=== PATIENT | female | born 1960 | race American Indian/Alaskan Native ===

== ENCOUNTER 2016-06-08 20:18 | Inpatient (IN) | payer MEDICARE, OTHER ==
[2016-06-08] MEDS ORDERED: ATIVAN ONE (21:00)
[2016-06-08] MEDS ORDERED: KEPPRA 1,000 MG/NS 0.75% 100ML 100 ML IV ONE ×2 (21:06→21:10)
[2016-06-08] MEDS ORDERED: ATIVAN IV ONE (21:10)
--- NOTE | 2016-06-08 21:11 | Cat Scan Report ---
FINAL REPORT EXAM: CT HEAD/BRAIN WO CON HISTORY: nonverbal, ams COMPARISON: CT of the head May 24, 2016. MRI of the brain March 15, 2016. TECHNIQUE: Axial images obtained skull base through vertex. FINDINGS: No acute intracranial hemorrhage, midline shift or pathologic extra axial fluid collection. Stable focal areas of volume loss involving the bilateral frontal lobes compatible sequelae of prior traumatic injury. Stable mild prominence of the frontal horns due to ex vacuo dilatation. Remainder of montez-white differentiation preserved. Calvarium grossly intact. Mild mucosal thickening the paranasal sinuses. Tiny amount of fluid within the mastoid air cells. IMPRESSION: No grossly acute intracranial abnormality. Stable focal areas of volume loss involving the bilateral frontal lobes compatible sequelae of prior traumatic encephalomalacia. No gross change from prior study.
[2016-06-08 22:09] LABS: Urine Drugs of Abuse Note Disclamer
[2016-06-08 22:10] LABS: Basophils % (Auto) 0.2 % (0.0-1.8); Eosinophils % (Auto) 0.1 % (0.0-4.3); Hematocrit 37.4 % (30.3-42.9); Hemoglobin 12.1 gm/dl (10.1-14.3); Mean Corpuscular HGB Conc 32 % (30-34); Mean Corpuscular Hemoglobin 27 pg (28-32); Mean Corpuscular Volume 84 fl (79-97); Platelet Count 444 K/mm3 (140-440); Red Blood Count 4.45 M/mm3 (3.65-5.03); Red Cell Distribution Width 14.7 % (13.2-15.2); White Blood Count 10.2 K/mm3 (4.5-11.0)
--- NOTE | 2016-06-08 22:19 | Cat Scan Report ---
FINAL REPORT EXAM: CT FACIAL BONES WO CON HISTORY: fall, head injury COMPARISON: CT of the head from the same date. TECHNIQUE:: Axial images obtained through the facial bones. Additional sagittal and coronal reformatted images were obtained. FINDINGS:: There is a tiny pocket a gas along the left orbital floor concerning for subtle nondisplaced fracture. There is also a subtle nondisplaced fracture of the anterior left maxillary wall (series 4, image 27). Otherwise, orbital rims, zygomatic arches, ptyergoid plates, and mandible are intact. No depressed nasal bone fracture. No intraocular or retrobulbar hematoma. Optic nerves and extraocular musculature are symmetric in morphology. Tiny air-fluid level left maxillary sinus. Majority of the teeth are absent. Mild mucosal thickening ethmoid air cells and left maxillary sinus. Mastoid air cells are clear. Prominent soft tissue swelling over the left malar region. Focal hematoma. IMPRESSION:: Probable subtle nondisplaced fracture along the left orbital floor. There is also a subtle nondisplaced fracture through the anterior wall left maxillary sinus. No other acute facial fracture. Prominent soft tissue swelling hematoma along the left malar region.
[2016-06-08 22:25] LABS: INR 1.06 (0.87-1.13); Partial Thromboplastin Time 30.8 Sec. (24.2-36.6)
[2016-06-08 22:26] LABS: Bilirubin,Urine NEG (Negative); Blood,Urine MOD (Negative); Ketones,Urine 20 mg/dL (Negative); Leukocyte Esterase,Urine SM (Negative); Mucus,Urine 1+ /HPF; Nitrite,Urine NEG (Negative); Urobilinogen,Urine < 2.0 mg/dL (<2.0)
--- NOTE | 2016-06-08 22:33 | Emergency Department Report ---
ED Seizure HPI - General Chief Complaint: Altered Mental Status Stated Complaint: FALL Time Seen by Provider: 06/08/16 20:27 Source: EMS, old records reviewed Mode of arrival: Stretcher Limitations: Altered Mental Status - History of Present Illness Initial Comments: 55-year-old female with a past medical history seizures and hypertension presents to the hospital with altered mental status. Patient was incarcerated. She went to Court approximately 8:30 this a.m. but after Court completely stopped speaking. Patient was not speaking but was able to follow commands. About 7:30 patient had a fall at the longterm and was less responsive and not following commands and therefore was sent to the hospital for evaluation. Upon arrival patient is nonverbal but does follow commands. Gaze preference to the right. Previous medical record reviewed. Patient was admitted here May 24 until the for status epilepticus from the longterm with associated respiratory failure requiring intubation upon arrival - Related Data Home Medications Medication Instructions Recorded Confirmed Last Taken amLODIPine [Norvasc] 5 mg PO DAILY 06/08/16 06/08/16 Unknown Previous Rx's Medication Instructions Recorded Last Taken Type levETIRAcetam [Keppra TAB] 1,000 mg PO BID #60 tablet 05/27/16 Unknown Rx Allergies Allergy/AdvReac Type Severity Reaction Status Date / Time peanut Allergy Unknown Verified 06/08/16 20:38 ED Review of Systems ROS: Stated complaint: FALL Other details as noted in HPI Comment: Unobtainable due to pts medical conditions (nonverbal) ED Past Medical Hx - Past Medical History Hx Hypertension: Yes Hx Congestive Heart Failure: No Hx Diabetes: No Hx Seizures: Yes Hx Asthma: No Hx COPD: No Additional medical history: LISSETH - Surgical History Additional Surgical History: LISSETH - Social History Smoking Status: Unknown if ever smoked - Medications Home Medications: Home Medications Medication Instructions Recorded Confirmed Last Taken Type levETIRAcetam [Keppra TAB] 1,000 mg PO BID #60 tablet 05/27/16 06/08/16 Unknown Rx amLODIPine [Norvasc] 5 mg PO DAILY 06/08/16 06/08/16 Unknown History ED Physical Exam - General Limitations: Altered Mental Status - Other Other exam information: General: No limitations, patient is alert in no acute distress Head exam: 1 cm laceration at left superior lateral orbital rim. Ecchymosis to left cheek/maxillary area superficial 0.5 cm laceration. Eyes exam: Normal appearance, pupils equal reactive to light, extraocular movements intact ENT: Moist mucous membrane, normal oropharynx Neck exam: Normal inspection, full range of motion, no meningismus nontender Respiratory exam: Clear to auscultation bilateral, no wheezes, rales, crackles Cardiovascular: Normal rate and rhythm, normal heart sounds Abdomen: Soft, nondistended, and nontender, with normal bowel sounds, no rebound, or guarding Extremity: Full range of motion normal inspection no deformity Back: Normal Inspection, full range of motion, no tenderness Neurologic: Nonverbal, right gaze preference, 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, equal foot dorsiflexion, sensation grossly intact Psychiatric: normal affect, normal mood Skin: laceration to left brow area ED Course Vital Signs 06/08/16 06/08/16 06/08/16 20:52 21:00 21:10 Pulse Rate 93 H 100 H 97 H Respiratory 19 24 21 Rate Blood Pressure 183/99 183/99 O2 Sat by Pulse 100 100 Oximetry 06/08/16 06/08/16 06/08/16 21:20 21:30 22:36 Pulse Rate 84 76 Respiratory 18 15 19 Rate Blood Pressure 123/102 153/84 O2 Sat by Pulse 99 99 100 Oximetry - Reevaluation(s) Reevaluation #1: 06/08/16 22:[address] pt had a sz with increased shaking of head to right, right arm tremors, and decreased responsiveness. I obtained an EJ due to lack of adequate refill access. 2 mg of Ativan given an Oral 1 g initiated. At this time patient no longer has any tremors or signs of seizures - EJ/Peripheral Line Neck R Time Out Performed: Yes Indications: nurses unable to establis Skin Cleansed in Sterile Fashion: Yes Size: 20 Dressing Placed: Tegaderm, tape Patient Tolerated Procedure: well, no complications - Laceration /Wound Repair Left Face Wound Location: face Wound Length (cm): 1 Wound's Depth, Shape: linear Wound Explored: clean Irrigated w/ Saline (ccs): 50 Betadine Prep?: Yes Wound Repaired With: Dermabond Sterile Dressing Applied?: No ED Medical Decision Making - Lab Data Result diagrams: 06/08/16 20:27 06/08/16 20:27 Lab Results 06/08/16 06/08/16 06/08/16 Range/Units 20:27 20:27 20:27 WBC 10.2 (4.5-11.0) K/mm3 RBC 4.45 (3.65-5.03) M/mm3 Hgb 12.1 (10.1-14.3) gm/dl Hct 37.4 (30.3-42.9) % MCV 84 (79-97) fl MCH 27 L (28-32) pg MCHC 32 (30-34) % RDW 14.7 (13.2-15.2) % Plt Count 444 H (140-440) K/mm3 Lymph % (Auto) 13.9 (13.4-35.0) % [place] % (Auto) 7.7 H (0.0-7.3) % Eos % (Auto) 0.1 (0.0-4.3) % Baso % (Auto) 0.2 (0.0-1.8) % Lymph # 1.4 (1.2-5.4) K/mm3 [place] # 0.8 (0.0-0.8) K/mm3 Eos # 0.0 (0.0-0.4) K/mm3 Baso # 0.0 (0.0-0.1) K/mm3 Seg Neutrophils % 78.1 H (40.0-70.0) % Seg Neutrophils # 8.0 H (1.8-7.7) K/mm3 PT 13.7 (12.2-14.9) Sec. INR 1.06 (0.87-1.13) APTT 30.8 (24.2-36.6) Sec. Sodium 145 (137-145) mmol/L Potassium 3.8 (3.6-5.0) mmol/L Chloride 103.4 (98-107) mmol/L Carbon Dioxide 19 L (22-30) mmol/L Anion Gap 26 mmol/L BUN 10 (7-17) mg/dL Creatinine 0.7 (0.7-1.2) mg/dL Estimated GFR > 60 ml/min BUN/Creatinine Ratio 14.28 % Glucose 124 H (65-100) mg/dL Calcium 10.0 (8.4-10.2) mg/dL Magnesium 1.9 (1.7-2.3) mg/dL Total Bilirubin 0.4 (0.1-1.2) mg/dL AST 21 (5-40) units/L ALT 35 (7-56) units/L Alkaline Phosphatase 93 (35-129) units/L Ammonia (25-60) umol/L Total Protein 8.0 (6.3-8.2) g/dL Albumin 4.5 (3.9-5) g/dL Albumin/Globulin Ratio 1.3 % Urine Color (Yellow) Urine Turbidity (Clear) Urine pH (5.0-7.0) Ur Specific [place] (1.003-1.030) Urine Protein (Negative) mg/dL Urine Glucose (UA) (Negative) mg/dL Urine Ketones (Negative) mg/dL Urine Blood (Negative) Urine Nitrite (Negative) Urine Bilirubin (Negative) Urine Urobilinogen (<2.0) mg/dL Ur Leukocyte Esterase (Negative) Urine WBC (Auto) (0.0-6.0) /HPF Urine RBC (Auto) (0.0-6.0) /HPF U Epithel Cells (Auto) (0-13.0) /HPF Urine Mucus /HPF U Benzodiazepines Scrn Plasma/Serum Alcohol (0-0.07) gm% 06/08/16 06/08/16 06/08/16 Range/Units 20:29 21:05 Unknown WBC (4.5-11.0) K/mm3 RBC (3.65-5.03) M/mm3 Hgb (10.1-14.3) gm/dl Hct (30.3-42.9) % MCV (79-97) fl MCH (28-32) pg MCHC (30-34) % RDW (13.2-15.2) % Plt Count (140-440) K/mm3 Lymph % (Auto) (13.4-35.0) % [place] % (Auto) (0.0-7.3) % Eos % (Auto) (0.0-4.3) % Baso % (Auto) (0.0-1.8) % Lymph # (1.2-5.4) K/mm3 [place] # (0.0-0.8) K/mm3 Eos # (0.0-0.4) K/mm3 Baso # (0.0-0.1) K/mm3 Seg Neutrophils % (40.0-70.0) % Seg Neutrophils # (1.8-7.7) K/mm3 PT (12.2-14.9) Sec. INR (0.87-1.13) APTT (24.2-36.6) Sec. Sodium (137-145) mmol/L Potassium (3.6-5.0) mmol/L Chloride (98-107) mmol/L Carbon Dioxide (22-30) mmol/L Anion Gap mmol/L BUN (7-17) mg/dL Creatinine (0.7-1.2) mg/dL Estimated GFR ml/min BUN/Creatinine Ratio % Glucose (65-100) mg/dL Calcium (8.4-10.2) mg/dL Magnesium (1.7-2.3) mg/dL Total Bilirubin (0.1-1.2) mg/dL AST (5-40) units/L ALT (7-56) units/L Alkaline Phosphatase (35-129) units/L Ammonia 10.0 L (25-60) umol/L Total Protein (6.3-8.2) g/dL Albumin (3.9-5) g/dL Albumin/Globulin Ratio % Urine Color Yellow (Yellow) Urine Turbidity Clear (Clear) Urine pH 5.0 (5.0-7.0) Ur Specific [place] 1.020 (1.003-1.030) Urine Protein 30 mg/dl (Negative) mg/dL Urine Glucose (UA) Neg (Negative) mg/dL Urine Ketones 20 (Negative) mg/dL Urine Blood Mod (Negative) Urine Nitrite Neg (Negative) Urine Bilirubin Neg (Negative) Urine Urobilinogen < 2.0 (<2.0) mg/dL Ur Leukocyte Esterase Sm (Negative) Urine WBC (Auto) 7.0 H (0.0-6.0) /HPF Urine RBC (Auto) 2.0 (0.0-6.0) /HPF U Epithel Cells (Auto) 1.0 (0-13.0) /HPF Urine Mucus 1+ /HPF U Benzodiazepines Scrn Plasma/Serum Alcohol < 0.01 (0-0.07) gm% 06/08/16 Range/Units Unknown WBC (4.5-11.0) K/mm3 RBC (3.65-5.03) M/mm3 Hgb (10.1-14.3) gm/dl Hct (30.3-42.9) % MCV (79-97) fl MCH (28-32) pg MCHC (30-34) % RDW (13.2-15.2) % Plt Count (140-440) K/mm3 Lymph % (Auto) (13.4-35.0) % [place] % (Auto) (0.0-7.3) % Eos % (Auto) (0.0-4.3) % Baso % (Auto) (0.0-1.8) % Lymph # (1.2-5.4) K/mm3 [place] # (0.0-0.8) K/mm3 Eos # (0.0-0.4) K/mm3 Baso # (0.0-0.1) K/mm3 Seg Neutrophils % (40.0-70.0) % Seg Neutrophils # (1.8-7.7) K/mm3 PT (12.2-14.9) Sec. INR (0.87-1.13) APTT (24.2-36.6) Sec. Sodium (137-145) mmol/L Potassium (3.6-5.0) mmol/L Chloride (98-107) mmol/L Carbon Dioxide (22-30) mmol/L Anion Gap mmol/L BUN (7-17) mg/dL Creatinine (0.7-1.2) mg/dL Estimated GFR ml/min BUN/Creatinine Ratio % Glucose (65-100) mg/dL Calcium (8.4-10.2) mg/dL Magnesium (1.7-2.3) mg/dL Total Bilirubin (0.1-1.2) mg/dL AST (5-40) units/L ALT (7-56) units/L Alkaline Phosphatase (35-129) units/L Ammonia (25-60) umol/L Total Protein (6.3-8.2) g/dL Albumin (3.9-5) g/dL Albumin/Globulin Ratio % Urine Color (Yellow) Urine Turbidity (Clear) Urine pH (5.0-7.0) Ur Specific [place] (1.003-1.030) Urine Protein (Negative) mg/dL Urine Glucose (UA) (Negative) mg/dL Urine Ketones (Negative) mg/dL Urine Blood (Negative) Urine Nitrite (Negative) Urine Bilirubin (Negative) Urine Urobilinogen (<2.0) mg/dL Ur Leukocyte Esterase (Negative) Urine WBC (Auto) (0.0-6.0) /HPF Urine RBC (Auto) (0.0-6.0) /HPF U Epithel Cells (Auto) (0-13.0) /HPF Urine Mucus /HPF U Benzodiazepines Scrn Presumptive positive Plasma/Serum Alcohol (0-0.07) gm% - EKG Data -: EKG Interpreted by Me (sinus rate 98, minimal criteria for LVH) - EKG Data When compared to previous EKG there are: no significant change (compared to 03/14) - Radiology Data Radiology results: report reviewed (ct head: naf) CT facial bones: Probable subtle nondisplaced fracture along the left orbital floor. Also subtle nondisplaced fracture through the anterior wall of the left maxillary sinus. No other acute facial fracture. Soft tissue swelling/hematoma along the left malar region - Medical Decision Making ddx: ICH Patient appears in no apparent seizure activity but still not quite at baseline. Given this patient's history of status and continued altered mental status patient will be admitted to the hospital for further observation and treatment - Differential Diagnosis seizure, medication noncompliance, electrolyte abnormality, substance abuse Critical Care Time: No Critical care attestation.: If time is entered above; I have spent that time in minutes in the direct care of this critically ill patient, excluding procedure time. ED Disposition Clinical Impression: Seizure, Fracture of left orbital floor, Left maxillary fracture, Altered mental status Face lacerations Qualifiers: Encounter type: initial encounter Qualified Code(s): S01.81XA - Laceration without foreign body of other part of head, initial encounter Disposition: OP ADMITTED IP TO THIS HOSP Is pt being admited?: Yes Does the pt Need Aspirin: No Condition: Stable Time of Disposition: 22:57 (Dr Tellze/hosp)
[2016-06-08 22:38] LABS: Alanine Aminotransferase 35 units/L (7-56); Albumin 4.5 g/dL (3.9-5); Albumin/Globulin Ratio 1.3 %; Alkaline Phosphatase 93 units/L (35-129); BUN/Creatinine Ratio 14.28; Bilirubin,Total 0.4 mg/dL (0.1-1.2); Blood Urea Nitrogen 10 mg/dL (7-17); Carbon Dioxide 19 mmol/L (22-30); Chloride 103.4 mmol/L (98-107); Glucose 124 mg/dL (65-100); Magnesium 1.9 mg/dL (1.7-2.3); Potassium 3.8 mmol/L (3.6-5.0); Sodium 145 mmol/L (137-145)
[2016-06-08 22:54] LABS: Anion Gap 26 mmol/L
[2016-06-08] MEDS ORDERED: ATIVAN IV PRN (23:41)
--- NOTE | 2016-06-08 23:45 | History and Physical Report ---
History of Present Illness Date of examination: 06/08/16 History of present illness: 55-year-old woman history of hypertension and seizure was brought to the emergency room for altered mental status for the emergency room physician. She was noted to have seizure activity in the ER, she was given IV Ativan and is now postictal and sedated. Other review of system is unobtainable PAST SURGICAL HISTORY: Unknown SOCIAL HISTORY: Unknown FAMILY HISTORY: Unknown Medications and Allergies Allergies Allergy/AdvReac Type Severity Reaction Status Date / Time peanut Allergy Unknown Verified 06/08/16 20:38 Home Medications Medication Instructions Recorded Confirmed Last Taken Type levETIRAcetam [Keppra TAB] 1,000 mg PO BID #60 tablet 05/27/16 06/08/16 Unknown Rx amLODIPine [Norvasc] 5 mg PO DAILY 06/08/16 06/08/16 Unknown History Active Meds: Active Medications Lorazepam (Ativan) 2 mg IV Q4H PRN PRN Reason: Seizures Exam - Physical Exam Narrative exam: Gen. appearance: Patient lying in bed, no apparent distress HEENT: Normocephalic, atraumatic, pupils equally round and reactive to light, unable to do extraocular movement, and no sclericterus,. No JVD or thyromegaly or nodule,neck supple, no carotid bruit ,mucous membranes moist, unable to examine oral cavity Heart: S1, S2, regular rate and rhythm Lungs: Clear to auscultation bilaterally, breathing comfortable Abdomen: Positive bowel sounds, nontender, nondistended, no organomegaly Extremity: No edema, cyanosis, clubbing Skin: No rash, nodules, warm, dry Neuro: Sedated - Constitutional Vitals: Temp Pulse Resp BP Pulse Ox 76 19 153/84 100 06/08/16 21:30 06/08/16 22:36 06/08/16 21:30 06/08/16 22:36 Results - Labs CBC & Chem 7: 06/08/16 20:27 06/08/16 20:27 Labs: Abnormal lab results 06/08/16 06/08/16 06/08/16 Range/Units 20:27 20:27 21:05 MCH 27 L (28-32) pg Plt Count 444 H (140-440) K/mm3 [place] % (Auto) 7.7 H (0.0-7.3) % Seg Neutrophils % 78.1 H (40.0-70.0) % Seg Neutrophils # 8.0 H (1.8-7.7) K/mm3 Carbon Dioxide 19 L (22-30) mmol/L Glucose 124 H (65-100) mg/dL Ammonia 10.0 L (25-60) umol/L Urine WBC (Auto) (0.0-6.0) /HPF 06/08/16 Range/Units Unknown MCH (28-32) pg Plt Count (140-440) K/mm3 [place] % (Auto) (0.0-7.3) % Seg Neutrophils % (40.0-70.0) % Seg Neutrophils # (1.8-7.7) K/mm3 Carbon Dioxide (22-30) mmol/L Glucose (65-100) mg/dL Ammonia (25-60) umol/L Urine WBC (Auto) 7.0 H (0.0-6.0) /HPF - Imaging and Cardiology CT Scan - head: report reviewed Assessment and Plan CT face reviewed Seizure acute on chronic Nondisplaced fracture of the anterior maxillary sinus Probably fracture of orbital floor Hypertension Admit to medicine Start IV ativan as needed for seizure Consult orthopedic Obtain further history when the patient is awake Start DVT prophylaxis
[2016-06-09] MEDS ORDERED: ZOFRAN IV PRN (03:55)
[2016-06-09] MEDS ORDERED: TYLENOL PR PRN (03:55)
[2016-06-09] MEDS ORDERED: DULCOLAX PR PRN (03:55)
[2016-06-09] MEDS ORDERED: MILK OF MAGNESIA PO PRN (03:55)
[2016-06-09 09:53] LABS: Basophils % (Auto) 0.4 % (0.0-1.8); Eosinophils % (Auto) 0.4 % (0.0-4.3); Hematocrit 34.6 % (30.3-42.9); Hemoglobin 11.3 gm/dl (10.1-14.3); Mean Corpuscular HGB Conc 33 % (30-34); Mean Corpuscular Hemoglobin 28 pg (28-32); Mean Corpuscular Volume 84 fl (79-97); Platelet Count 400 K/mm3 (140-440); Red Blood Count 4.12 M/mm3 (3.65-5.03); Red Cell Distribution Width 14.9 % (13.2-15.2); White Blood Count 10.2 K/mm3 (4.5-11.0)
[2016-06-09 10:05] LABS: BUN/Creatinine Ratio 15.71; Blood Urea Nitrogen 11 mg/dL (7-17); Calcium 9.3 mg/dL (8.4-10.2); Carbon Dioxide 25 mmol/L (22-30); Chloride 102.3 mmol/L (98-107); Glucose 93 mg/dL (65-100); Potassium 3.7 mmol/L (3.6-5.0); Sodium 141 mmol/L (137-145)
[2016-06-09 10:10] LABS: Anion Gap 17 mmol/L
--- NOTE | 2016-06-09 10:45 | Event Note ---
Date: 06/09/16 Recommend ENT/maxillofacial surgery consult.
[2016-06-09] MEDS: LOVENOX SUB-Q SCH (11:31)
--- NOTE | 2016-06-09 13:03 | Progress Note ---
Assessment and Plan Disposition Plan: stable home pending ent follow up Total Time Spent with Patient (Minutes): 22 - Patient Problems (1) Altered mental status Current Visit: Yes Status: Resolved Plan to address problem: Secondary to postictal state has resolved now. Resume Keppra. (2) Face lacerations Current Visit: Yes Status: Acute Qualifiers: Encounter type: initial encounter Qualified Code(s): S01.81XA - Laceration without foreign body of other part of head, initial encounter Plan to address problem: 's laceration is a stable. No need for suture. Local wound care. (3) Fracture of left orbital floor Current Visit: Yes Status: Acute Plan to address problem: Fracture left open floor. Not sure at this particular time we'll count of treatment this may need. Patient appears to be stable for discharge. Awaiting ENT consult. (4) Left maxillary fracture Current Visit: Yes Status: Acute Plan to address problem: Left maxillary fracture with pain. Await ENT consult. Was pending auto consult today however the patient takes states ENT problem and we'll wait on ENT consult. (5) Seizure Current Visit: Yes Status: Acute Plan to address problem: Further seizure we'll continue Keppra 1000 mg twice a day. (6) Acute kidney injury Current Visit: No Status: Acute Plan to address problem: Soft. Resolved. (7) HTN (hypertension) Current Visit: Yes Status: Acute Plan to address problem: Resume amlodipine. History Interval history: Patient presents status post seizure altered mental status post ictal. Now no longer postictal states she's hungry. Follow-up or oh thought that orbital fracture is ENT problem. ENT consult pending. Hospitalist Physical - Constitutional Vitals: Temp Pulse Resp BP Pulse Ox 97.8 F 68 16 146/79 100 06/09/16 08:00 06/09/16 08:00 06/09/16 08:00 06/09/16 08:00 06/09/16 11:33 General appearance: Present: no acute distress - EENT Eyes: Present: PERRL, EOM intact ENT: hearing intact, clear oral mucosa, dentition normal, other (facial swelling over the left around zygomatic process.) - Neck Neck: Present: supple, normal ROM - Respiratory Respiratory effort: normal Respiratory: bilateral: CTA - Cardiovascular Rhythm: regular Heart Sounds: Present: S1 & S2 - Extremities Extremities: no ischemia, pulses intact, pulses symmetrical, No edema Peripheral Pulses: within normal limits - Abdominal General gastrointestinal: soft, non-tender, non-distended - Integumentary Integumentary: Present: clear, warm, dry - Psychiatric Psychiatric: appropriate mood/affect - Neurologic Neurologic: CNII-XII intact Results - Labs CBC & Chem 7: 06/09/16 09:05 06/09/16 09:05 Labs: Laboratory Last Values WBC 10.2 K/mm3 (4.5-11.0) 06/09/16 09:05 RBC 4.12 M/mm3 (3.65-5.03) 06/09/16 09:05 Hgb 11.3 gm/dl (10.1-14.3) 06/09/16 09:05 Hct 34.6 % (30.3-42.9) 06/09/16 09:05 MCV 84 fl (79-97) 06/09/16 09:05 MCH 28 pg (28-32) 06/09/16 09:05 MCHC 33 % (30-34) 06/09/16 09:05 RDW 14.9 % (13.2-15.2) 06/09/16 09:05 Plt Count 400 K/mm3 (140-440) 06/09/16 09:05 Lymph % (Auto) 17.3 % (13.4-35.0) 06/09/16 09:05 [place] % (Auto) 8.6 % (0.0-7.3) H 06/09/16 09:05 Eos % (Auto) 0.4 % (0.0-4.3) 06/09/16 09:05 Baso % (Auto) 0.4 % (0.0-1.8) 06/09/16 09:05 Lymph # 1.8 K/mm3 (1.2-5.4) 06/09/16 09:05 [place] # 0.9 K/mm3 (0.0-0.8) H 06/09/16 09:05 Eos # 0.0 K/mm3 (0.0-0.4) 06/09/16 09:05 Baso # 0.0 K/mm3 (0.0-0.1) 06/09/16 09:05 Seg Neutrophils % 73.3 % (40.0-70.0) H 06/09/16 09:05 Seg Neutrophils # 7.5 K/mm3 (1.8-7.7) 06/09/16 09:05 PT 13.7 Sec. (12.2-14.9) 06/08/16 20:27 INR 1.06 (0.87-1.13) 06/08/16 20:27 APTT 30.8 Sec. (24.2-36.6) 06/08/16 20:27 Sodium 141 mmol/L (137-145) 06/09/16 09:05 Potassium 3.7 mmol/L (3.6-5.0) 06/09/16 09:05 Chloride 102.3 mmol/L (98-107) 06/09/16 09:05 Carbon Dioxide 25 mmol/L (22-30) 06/09/16 09:05 Anion Gap 17 mmol/L 06/09/16 09:05 BUN 11 mg/dL (7-17) 06/09/16 09:05 Creatinine 0.7 mg/dL (0.7-1.2) 06/09/16 09:05 Estimated GFR > 60 ml/min 06/09/16 09:05 BUN/Creatinine Ratio 15.71 % 06/09/16 09:05 Glucose 93 mg/dL (65-100) 06/09/16 09:05 POC Glucose 86 (70-105) 06/09/16 11:25 Calcium 9.3 mg/dL (8.4-10.2) 06/09/16 09:05 Magnesium 1.9 mg/dL (1.7-2.3) 06/08/16 20:27 Total Bilirubin 0.4 mg/dL (0.1-1.2) 06/08/16 20:27 AST 21 units/L (5-40) 06/08/16 20:27 ALT 35 units/L (7-56) 06/08/16 20:27 Alkaline Phosphatase 93 units/L (35-129) 06/08/16 20:27 Ammonia 10.0 umol/L (25-60) L 06/08/16 21:05 Total Protein 8.0 g/dL (6.3-8.2) 06/08/16 20:27 Albumin 4.5 g/dL (3.9-5) 06/08/16 20:27 Albumin/Globulin Ratio 1.3 % 06/08/16 20:27 Urine Color Yellow (Yellow) 06/08/16 Unknown Urine Turbidity Clear (Clear) 06/08/16 Unknown Urine pH 5.0 (5.0-7.0) 06/08/16 Unknown Ur Specific [place] 1.020 (1.003-1.030) 06/08/16 Unknown Urine Protein 30 mg/dl mg/dL (Negative) 06/08/16 Unknown Urine Glucose (UA) Neg mg/dL (Negative) 06/08/16 Unknown Urine Ketones 20 mg/dL (Negative) 06/08/16 Unknown Urine Blood Mod (Negative) 06/08/16 Unknown Urine Nitrite Neg (Negative) 06/08/16 Unknown Urine Bilirubin Neg (Negative) 06/08/16 Unknown Urine Urobilinogen < 2.0 mg/dL (<2.0) 06/08/16 Unknown Ur Leukocyte Esterase Sm (Negative) 06/08/16 Unknown Urine WBC (Auto) 7.0 /HPF (0.0-6.0) H 06/08/16 Unknown Urine RBC (Auto) 2.0 /HPF (0.0-6.0) 06/08/16 Unknown U Epithel Cells (Auto) 1.0 /HPF (0-13.0) 06/08/16 Unknown Urine Mucus 1+ /HPF 06/08/16 Unknown Urine Opiates Screen Presumptive negative 06/08/16 Unknown Urine Methadone Screen Presumptive negative 06/08/16 Unknown Ur Barbiturates Screen Presumptive negative 06/08/16 Unknown Ur Phencyclidine Scrn Presumptive negative 06/08/16 Unknown Ur Amphetamines Screen Presumptive negative 06/08/16 Unknown U Benzodiazepines Scrn Presumptive positive 06/08/16 Unknown Urine Cocaine Screen Presumptive negative 06/08/16 Unknown U Marijuana (THC) Screen Presumptive negative 06/08/16 Unknown Drugs of Abuse Note Disclamer 06/08/16 Unknown Plasma/Serum Alcohol < 0.01 gm% (0-0.07) 06/08/16 20:29
[2016-06-09] MEDS: KEPPRA PO SCH (22:12)
[2016-06-10] MEDS ORDERED: NORVASC PO SCH (10:00)
--- NOTE | 2016-06-10 10:21 | Admit Criteria Form ---
Admission Criteria Documentation: SEIZURE Clinical Indications for Admission to Inpatient Care (Place 'X' for any and all applicable criteria): Admission is indicated for seizure and ANY ONE of the following(1)(2)(3)(4)(5): [X]I. Inpatient admission required rather than observation care (Also use Seizure: Observation Care Criteria as appropriate) because of ANY ONE of the following: [X]a) Altered mental status that is severe or persistent [ ]b) New focal neurologic deficit that is severe or persistent [ ]c) Metabolic disorder (eg, hypoglycemia, hyponatremia) that is severe or persistent [ ]d) Recurrent seizure [ ]e) Outpatient antiseizure regimen cannot be established (eg , patient cannot tolerate medication, initiation requires inpatient care) [ ]f) Need for ongoing intravenous infusion of antiseizure medication [ ]g) Cardiac arrhythmias of immediate concern [ ]h) Cerebral bleeding, hydrocephalus, or vasospasm monitoring (14) [ ]i) Increased intracranial pressure or cerebral edema monitoring (15) [ ]j) Other treatment or monitoring requiring inpatient admission [ ]II. Status epilepticus [A] or repetitive seizures not controlled with emergent treatment (6)(8) [ ]III. Brain disorder (eg, tumor, edema, and hydrocephalus) that requiring monitoring or intervention available only at inpatient level of care. [ ]IV. Brain insult (eg, severe trauma, stroke, drug toxicity, or withdrawal) that requires monitoring or intervention available only at inpatient level of care (10)(11) Extended stay beyond goal length of stay may be needed for (22) [ ]a) Complications of status epilepticus [ ]b) Refractory status epilepticus [ ]c) Etiology-specific therapy for conditions such as PSYCHIATRIC SOCIAL WORKER SUPERVISOR infection, head injury,eclampsia, severe metabolic abnormalities, and brain tumor [ ]d) Residual neurologic damage, [ ]e) Initiation of significant change to anticonvulsant treatment [ ]f) Older patients (65 years or older) [ ]g) Patient requiring intubation (eg, to protect airway) The original [facility] content created by [email or web address] has been revised. The portions of the content which have been revised are identified through the use of italic text or in bold, and [facility] [employer] has neither reviewed nor approved the modified material. All other unmodified content is copyright [facility] [employer]. Please see references footnoted in the original [facility] edition 2016 Admission Criteria Met: Yes
[2016-06-10] MEDS: LOVENOX SUB-Q SCH (11:08)
[2016-06-10] MEDS: KEPPRA PO SCH (11:09)
--- NOTE | 2016-06-10 15:52 | Discharge Summary ---
Providers - Providers Date of Admission: 06/08/16 23:42 Date of discharge: 06/10/16 Attending physician: KARYN LOPEZ 06/09/16 03:55 Consult to Physician [CONS] Routine Consulting Provider: SIGIFREDO PAIGE V Reason For Exam: fx of max sinus, orbit floor Notified:: church secretary pl call Primary care physician: ROOFING LABORER Hospitalization Condition: Good Pertinent studies: Head CT, facial CT. Hospital course: 55-year-old history of seizure admitted status post seizure postictal state and fall with a facial fracture. We'll go consult was obtained at that time he did not feel like they will comfortable enough to make a decision around zygomatic arch and eye socket therefore ENT consult. At day #2 ENT consult not been obtained. Patient fracture was nondisplaced. Tenderness however does not need to correction at this time. Can follow up on outpatient basis with ENT. Or patient can be discharged home today. We'll discharge home with seizure medications increasing Keppra 1000 twice a day. Disposition: DISCHARGED TO HOME OR SELFCARE - Discharge Diagnoses (1) Altered mental status Status: Resolved Comment: Secondary to postictal state has resolved. (2) Face lacerations Status: Acute Qualifiers: Encounter type: initial encounter Qualified Code(s): S01.81XA - Laceration without foreign body of other part of head, initial encounter Comment: Lacerations treat local wound care (3) Fracture of left orbital floor Status: Acute Comment: Facial floor flexure and maxillary fracture will follow -up ENT outpatient (4) Left maxillary fracture Status: Acute Comment: Follow-up ENT outpatient. (5) Seizure Status: Acute Comment: Patient tolerated Ativan when necessary and increase to Keppra 1000 mg twice a day. (6) Acute kidney injury Status: Acute Comment: Resolved (7) HTN (hypertension) Status: Acute Qualifiers: Hypertension type: essential hypertension Qualified Code(s): I10 - Essential (primary) hypertension Comment: Maintain optimal control. Continue medical management. Core Measure Documentation - Palliative Care Palliative Care/ Comfort Measures: Not Applicable - Core Measures Any of the following diagnoses?: none Exam - Constitutional Vitals: Temp Pulse Resp BP Pulse Ox 97.7 F 65 14 178/81 98 06/10/16 15:15 06/10/16 15:15 06/10/16 15:15 06/10/16 15:15 06/10/16 15:15 General appearance: Present: no acute distress - EENT ENT: hearing intact, clear oral mucosa, dentition normal, other (left-sided facial swelling erythema secondary to facial fracture.) - Neck Neck: Present: supple, normal ROM - Respiratory Respiratory effort: normal Respiratory: bilateral: CTA - Cardiovascular Rhythm: regular Heart Sounds: Present: S1 & S2 - Extremities Extremities: no ischemia, pulses intact, pulses symmetrical, No edema Peripheral Pulses: within normal limits - Abdominal General gastrointestinal: Present: soft, non-tender, non-distended - Integumentary Integumentary: Present: clear, warm, dry - Musculoskeletal Musculoskeletal: gait normal, strength equal bilaterally - Psychiatric Psychiatric: appropriate mood/affect, intact judgment & insight - Neurologic Neurologic: CNII-XII intact, moves all extremities Plan Activity: no driving until cleared by PCP Weight Bearing Status: Weight Bear as Tolerated Diet: regular Wound: open to air Special Instructions: no heavy lifting, other (follow-up with ear nose and throat.) Follow up with: PRIMARY CARE, [Primary Care Provider] - 7 Days YOLY CRAWFORD MD [Staff Physician] - 7 Days Prescriptions: amLODIPine [Norvasc] 5 mg PO QDAY #30 tablet levETIRAcetam [Keppra TAB] 1,000 mg PO BID #60 tablet
[2016-06-10 17:30] VITALS: BP 177/80
[2016-06-11] MEDS ORDERED: LOVENOX SUB-Q SCH (10:00)
== END 2016-06-10 17:31 | disposition home or self-care (01) | DRG 158 ==
LOC: ED 20:18 → EEVIPCON 20:18 → 3A 23:42
PROVIDERS: ADMIT Internal Medicine; ATTEND Internal Medicine
DX: S02.40DA Maxillary fracture, left side, initial encounter for closed fracture (principal); S02.32XA Fracture of orbital floor, left side, initial encounter for closed fracture; N17.9 Acute kidney failure, unspecified; I10 Essential (primary) hypertension; S01.81XA Laceration without foreign body of other part of head, initial encounter; W18.39XA Other fall on same level, initial encounter; R56.9 Unspecified convulsions; Z91.010 Allergy to peanuts; Y93.89 Activity, other specified; Y92.89 Other specified places as the place of occurrence of the external cause; Y99.8 Other external cause status
CPT/HCPCS: 36415; 70450; 70486; 80048; 80053; 80307; 80320; 81001; 82140; 82962; 83735; 85025; 85610; 85730; 93005; 93010; 96374; 96375; G0480; J1650; J1953; J2060

== ENCOUNTER 2016-08-28 13:11 | Observation (INO) | payer MEDICARE ==
[2016-08-28] MEDS ORDERED: KEPPRA 1,000 MG/NS 0.75% 100ML 1,000 MG/100 ML BAG IV ONE (13:39)
--- NOTE | 2016-08-28 13:53 | Emergency Department Report ---
ED Seizure HPI - General Chief Complaint: Seizure Stated Complaint: SEIZURE Time Seen by Provider: 08/28/16 13:40 Source: EMS Mode of arrival: Stretcher Limitations: Altered Mental Status - History of Present Illness Initial Comments: 56-year-old female presents to the emergency department via EMS for evaluation of seizure. History is obtained from EMS due to the patient's postictal state. EMS states that they were called out for a seizure. Patient was noted to have traumatic injuries to her head. Patient then had a second seizure witnessed by EMS en route to the emergency department. EMS describes generalized tonic-clonic activity. Patient was administered 2 mg of IV Ativan. EMS reports a history of seizures. They state the patient told them she has been taking her Keppra and her last seizure was over one year ago. Further history is unable to be obtained from the patient due to her postictal state. MD Complaint: seizure -: unknown Description of Episode: tonic-clonic movement, post-event confusion Witnessed:: Yes Trauma: Yes Seizure History: known seizure disorder, compliant with medication Place: home Possible Precipitating Event: other (unknown) Treatments Prior to Arrival: benzodiazepines - Related Data Home Medications Medication Instructions Recorded Confirmed Last Taken amLODIPine [Norvasc] 5 mg PO DAILY 06/08/16 06/08/16 Unknown Previous Rx's Medication Instructions Recorded Last Taken Type amLODIPine [Norvasc] 5 mg PO QDAY #30 tablet 06/10/16 Unknown Rx levETIRAcetam [Keppra TAB] 1,000 mg PO BID #60 tablet 06/10/16 Unknown Rx Allergies Allergy/AdvReac Type Severity Reaction Status Date / Time peanut Allergy Unknown Verified 06/08/16 20:38 ED Review of Systems ROS: Stated complaint: SEIZURE Other details as noted in HPI Comment: Unobtainable due to pts medical conditions ED Past Medical Hx - Past Medical History Previous Medical History?: Yes Hx Hypertension: Yes (Since age 36) Hx Congestive Heart Failure: No Hx Diabetes: No Hx Seizures: Yes (Since age 36) Hx Asthma: No Hx COPD: No Additional medical history: LISSETH - Surgical History Additional Surgical History: LISSETH - Social History Smoking Status: Unknown if ever smoked - Medications Home Medications: Home Medications Medication Instructions Recorded Confirmed Last Taken Type amLODIPine [Norvasc] 5 mg PO DAILY 06/08/16 06/08/16 Unknown History amLODIPine [Norvasc] 5 mg PO QDAY #30 tablet 06/10/16 Unknown Rx levETIRAcetam [Keppra TAB] 1,000 mg PO BID #60 tablet 06/10/16 Unknown Rx ED Physical Exam - General Limitations: Other (post-ictal state) General appearance: postictal - Head Head exam: Present: normocephalic, other (1.5 cm laceration lateral to the right eyebrow. 1 cm laceration located just inferior to the right lower lip. No active bleeding noted.) - Eye Eye exam: Present: PERRL, EOMI, other (right sided periorbital ecchymosis) - ENT ENT exam: Present: normal exam, normal orophraynx, mucous membranes moist - Neck Neck exam: Present: normal inspection, full ROM. Absent: tenderness - Respiratory Respiratory exam: Present: normal lung sounds bilaterally. Absent: respiratory distress - Cardiovascular Cardiovascular Exam: Present: normal rhythm, tachycardia, normal heart sounds - GI/Abdominal GI/Abdominal exam: Present: soft, normal bowel sounds. Absent: distended, tenderness - Extremities Exam Extremities exam: Present: normal inspection, full ROM. Absent: tenderness - Back Exam Back exam: Present: normal inspection, full ROM. Absent: tenderness - Neurological Exam Neurological exam: Present: altered - Skin Skin exam: Present: warm, dry ED Course Vital Signs 08/28/16 13:35 Temperature 98.3 F Pulse Rate 112 H Respiratory 12 Rate Blood Pressure 102/60 O2 Sat by Pulse 97 Oximetry - Laceration /Wound Repair Right Face Wound Location: face (inferior and lateral to right eyebrow) Wound Length (cm): 2 Wound's Depth, Shape: superficial Wound Explored: clean Wound Repaired With: Dermabond Right Lower Jaw Wound Location: face (inferior to right lower lip) Wound Length (cm): 1 Wound's Depth, Shape: superficial Wound Explored: clean Wound Repaired With: Dermabond ED Medical Decision Making - Lab Data Result diagrams: 08/28/16 13:47 - Radiology Data Radiology results: report reviewed, image reviewed CT of the head shows bilateral frontal lobe encephalomalacia, unchanged from previous. CT of the cervical spine shows an old teardrop fracture at C6. There is no acute traumatic injury. - Medical Decision Making It is unsure if the patient had a seizure and fell hitting her head or if the patient fell, hitting her head and subsequently having a seizure. Obtaining labs and CT of the head and cervical spine. Giving IV Keppra. Will reassess. Patient remains minimally responsive after prolonged observation in the emergency department. Her imaging studies are negative for acute findings. Patient will be admitted by the hospitalist for further observation. - Differential Diagnosis seizure, traumatic head injury, electrolyte abnormality, occult infection Critical care attestation.: If time is entered above; I have spent that time in minutes in the direct care of this critically ill patient, excluding procedure time. ED Disposition Clinical Impression: Seizure disorder Closed head injury Qualifiers: Encounter type: initial encounter Qualified Code(s): S09.90XA - Unspecified injury of head, initial encounter Facial laceration Qualifiers: Encounter type: initial encounter Qualified Code(s): S01.81XA - Laceration without foreign body of other part of head, initial encounter Disposition: OP ADMITTED IP TO THIS HOSP Is pt being admited?: Yes Condition: Stable Referrals: PRIMARY CARE, [Primary Care Provider] - 3-5 Days Time of Disposition: 15:44
[2016-08-28 14:46] LABS: Sodium TNR mmol/L (137-145)
[2016-08-28 14:47] LABS: Anion Gap TNR mmol/L; BUN/Creatinine Ratio TNR; Blood Urea Nitrogen TNR mg/dL (7-17); Calcium TNR mg/dL (8.4-10.2); Carbon Dioxide TNR mmol/L (22-30); Chloride TNR mmol/L (98-107); Glucose TNR mg/dL (65-100); Potassium TNR mmol/L (3.6-5.0)
--- NOTE | 2016-08-28 15:09 | Cat Scan Report ---
Cranial CT without contrast. History: Seizure, head trauma. Findings: Comparison is made to the previous study on June 08, 2016. Encephalomalacia in the frontal lobes bilaterally is unchanged. There is no evidence of acute infarct or hemorrhage. No extra-axial collections or masses are seen. The ventricles are normal. The posterior fossa is unremarkable. The calvarium is intact. Impression: No acute findings or interval changes since 2016. Encephalomalacia in the frontal lobes is stable.
[2016-08-28 15:17] LABS: Bacteria,Urine 1+ /HPF (Negative); Bilirubin,Urine NEG (Negative); Blood,Urine MOD (Negative); Granular Casts,Urine 7 /LPF; Ketones,Urine NEG (Negative); Leukocyte Esterase,Urine NEG (Negative); Mucus,Urine FEW /HPF; Nitrite,Urine NEG (Negative); Urobilinogen,Urine < 2.0 mg/dL (<2.0)
--- NOTE | 2016-08-28 15:19 | Cat Scan Report ---
CT of the cervical spine. History: Seizure, fall with neck pain. Findings: Comparison is made to a previous study performed on December 09, 2014. Findings: There is severe narrowing of the disc space at C56 and C6-7. No fracture of the anterior inferior aspect of the C6 vertebral body is again noted. There is no evidence of acute fracture or subluxation. Anterior and posterior ossified center noted at these levels. Mild facet joint DJD is noted in the lower cervical spine. The odontoid is intact. Impression: No acute findings. An old teardrop fracture of the anterior inferior aspect of C6 vertebral body is noted. Multilevel spondylosis and facet joint arthropathy are described.
--- NOTE | 2016-08-28 15:56 | Admit Criteria Form ---
Admission Criteria Documentation: SEIZURE Clinical Indications for Admission to Inpatient Care (Place 'X' for any and all applicable criteria): Admission is indicated for seizure and ANY ONE of the following(1)(2)(3)(4)(5): [X]I. Inpatient admission required rather than observation care (Also use Seizure: Observation Care Criteria as appropriate) because of ANY ONE of the following: [X]a) Altered mental status that is severe or persistent [ ]b) New focal neurologic deficit that is severe or persistent [ ]c) Metabolic disorder (eg, hypoglycemia, hyponatremia) that is severe or persistent [X]d) Recurrent seizure [ ]e) Outpatient antiseizure regimen cannot be established (eg , patient cannot tolerate medication, initiation requires inpatient care) [ ]f) Need for ongoing intravenous infusion of antiseizure medication [ ]g) Cardiac arrhythmias of immediate concern [ ]h) Cerebral bleeding, hydrocephalus, or vasospasm monitoring (14) [ ]i) Increased intracranial pressure or cerebral edema monitoring (15) [ ]j) Other treatment or monitoring requiring inpatient admission [ ]II. Status epilepticus [A] or repetitive seizures not controlled with emergent treatment (6)(8) [ ]III. Brain disorder (eg, tumor, edema, and hydrocephalus) that requiring monitoring or intervention available only at inpatient level of care. [ ]IV. Brain insult (eg, severe trauma, stroke, drug toxicity, or withdrawal) that requires monitoring or intervention available only at inpatient level of care (10)(11) Extended stay beyond goal length of stay may be needed for (22) [ ]a) Complications of status epilepticus [ ]b) Refractory status epilepticus [ ]c) Etiology-specific therapy for conditions such as OUTBOUND SALES ADVISOR infection, head injury,eclampsia, severe metabolic abnormalities, and brain tumor [ ]d) Residual neurologic damage, [ ]e) Initiation of significant change to anticonvulsant treatment [ ]f) Older patients (65 years or older) [ ]g) Patient requiring intubation (eg, to protect airway) The original [facility] [employer] content created by [facility] [employer] has been revised. The portions of the content which have been revised are identified through the use of italic text or in bold, and [facility] [employer] has neither reviewed nor approved the modified material. All other unmodified content is copyright [facility] [employer]. Please see references footnoted in the original [facility] edition 2016 Admission Criteria Met: Yes
[2016-08-28] MEDS ORDERED: ZOFRAN IV PRN (16:47)
[2016-08-28] MEDS ORDERED: MILK OF MAGNESIA PO PRN (16:47)
[2016-08-28] MEDS ORDERED: MORPHINE IV PRN (16:47)
[2016-08-28] MEDS ORDERED: TYLENOL PO PRN (16:47)
[2016-08-28] MEDS ORDERED: DULCOLAX PR PRN (16:47)
[2016-08-28] MEDS ORDERED: ATIVAN IV PRN (16:55)
[2016-08-28] MEDS ORDERED: KEPPRA 1,000 MG in D5W 100 ML IV SCH (17:00)
[2016-08-28] MEDS ORDERED: D5/0.45NS 1,000 ML IV SCH (17:00)
--- NOTE | 2016-08-28 17:03 | History and Physical Report ---
History of Present Illness Date of examination: 08/28/16 Chief complaint: seizure and post ictal state History of present illness: Mrs. Torres is a 56-year-old -[place] female with history of seizure disorder the past 20 years apparently had a seizure while coming out of bathroom , and EMS was called, and she had the generalized tonic-clonic seizure while on the way to the emergency room. Presently she is in a postictal state. Unable to get any history from the patient. History is obtained from the family members who are in the room This appears to be some medication noncompliance as the patient apparently has some forgetfulness she gets a seizure at least once every 2 months. She started seeing a new neurologist Dr. Nebwerry recently and her antiseizure medication was changed from Dilantin to Keppra. She also had EEG results of which are not known to the family. The seizure disorder is preceded by a history of closed head injury in 1997 since then she has been having seizures She has right periorbital hematoma and abrasion on the chin and laceration over the right upper eye lid No further history is possible at this time Past History Past Medical History: hypertension, seizures, other (anxiety disorder) Past Surgical History: No surgical history Social history: no significant social history Family history: diabetes, hypertension Medications and Allergies Allergies Allergy/AdvReac Type Severity Reaction Status Date / Time peanut Allergy Unknown Verified 06/08/16 20:38 Home Medications Medication Instructions Recorded Confirmed Last Taken Type amLODIPine [Norvasc] 5 mg PO DAILY 06/08/16 06/08/16 Unknown History amLODIPine [Norvasc] 5 mg PO QDAY #30 tablet 06/10/16 Unknown Rx levETIRAcetam [Keppra TAB] 1,000 mg PO BID #60 tablet 06/10/16 Unknown Rx Active Meds: Active Medications Acetaminophen (Tylenol) 650 mg PO Q4H PRN PRN Reason: Pain MILD(1-3)/Fever >100.5/BISWAS Bisacodyl (Dulcolax) 10 mg MN QDAY PRN PRN Reason: Constipation unrelieved by MOM Heparin Sodium (Porcine) (Heparin) 5,000 unit SUB-Q Q8H BREANN Dextrose/Sodium Chloride (D5/0.45ns) 1,000 mls @ 75 mls/hr IV DIRECT BREANN Levetiracetam 1,000 mg/ (Dextrose) 110 mls @ 400 mls/hr IV Q12H BREANN Lorazepam (Ativan) 1 mg IV Q4H PRN PRN Reason: Anxiety Magnesium Hydroxide (Milk Of Magnesia) 30 ml PO Q4H PRN PRN Reason: Constipation Morphine Sulfate (Morphine) 2 mg IV Q4H PRN PRN Reason: Pain , Severe (7-10) Ondansetron HCl (Zofran) 4 mg IV Q8H PRN PRN Reason: N/V unrelieved by Reglan Review of Systems All systems: negative (as stated above in the history of present illness otherwise unobtainable at this time) Exam - Constitutional Vitals: Temp Pulse Resp BP Pulse Ox 98.3 F 112 H 12 102/60 97 08/28/16 13:35 08/28/16 13:35 08/28/16 13:35 08/28/16 13:35 08/28/16 13:35 General appearance: Present: no acute distress, other (confused, lethargic, not answering any questions) - EENT Eyes: Present: EOM intact (right periorbital hematoma with laceration over the right eyebrow) ENT: hearing intact, clear oral mucosa, other (abrasion over the right chin and upper lip) - Neck Neck: Present: supple. Absent: masses or JVD - Respiratory Respiratory effort: normal Respiratory: bilateral: CTA - Cardiovascular Rhythm: regular Heart Sounds: Present: S1 & S2 - Extremities Extremities: No edema - Abdominal General gastrointestinal: Present: soft, non-tender. Absent: hepatomegaly, splenomegaly - Rectal Rectal Exam: deferred - Psychiatric Psychiatric: other (lethargic confused) - Neurologic Neurologic: no focal deficits, moves all extremities Results - Labs CBC & Chem 7: 08/28/16 13:47 Assessment and Plan - Patient Problems (1) Seizure disorder Current Visit: Yes Status: Acute Plan to address problem: CT of the head shows no acute findings except encephalomalacia in the frontal lobes DT of the C-spine shows spondylolisthesis in no acute findings We'll admit the patient to observation status Start the patient on intravenous Keppra Keep nothing by mouth No need for any EEG as apparently she had one recently start on diet once she is more oriented and alert (2) HTN (hypertension) Current Visit: No Status: Acute Qualifiers: Hypertension type: essential hypertension Qualified Code(s): I10 - Essential (primary) hypertension Plan to address problem: Preferred this time is in the normal range We will hold amlodipine as she is nothing by mouth watch her blood pressure closely
[2016-08-28] MEDS ORDERED: APRESOLINE IV PRN (17:17)
[2016-08-28 17:46] LABS: Hematocrit 34.1 % (30.3-42.9); Hemoglobin 10.9 gm/dl (10.1-14.3); Mean Corpuscular HGB Conc 32 % (30-34); Mean Corpuscular Hemoglobin 27 pg (28-32); Mean Corpuscular Volume 84 fl (79-97); Platelet Count 330 K/mm3 (140-440); Red Blood Count 4.08 M/mm3 (3.65-5.03); Red Cell Distribution Width 14.3 % (13.2-15.2)
[2016-08-28 17:50] LABS: White Blood Count 26.9 K/mm3 (4.5-11.0)
[2016-08-28 18:02] LABS: Blood Urea Nitrogen 12 mg/dL (7-17); Calcium 8.8 mg/dL (8.4-10.2); Carbon Dioxide 21 mmol/L (22-30); Glucose 101 mg/dL (65-100)
[2016-08-28 18:03] LABS: Anion Gap 17 mmol/L; Chloride 102.6 mmol/L (98-107); Sodium 137 mmol/L (137-145)
[2016-08-28] MEDS: KEPPRA 1,000 MG/NS 0.75% 100ML 1,000 MG/100 ML BAG IV SCH (20:29)
[2016-08-28] MEDS: HEPARIN SUB-Q SCH (21:04)
[2016-08-28 21:12] LABS: Basophils % (Manual) 0 % (0.0-1.8); Blastocytes % (Manual) 0 %; Eosinophils % (Manual) 0 % (0.0-4.3); Total Cells Counted Percent 3.5
[2016-08-28 21:13] LABS: Anisocytosis 1+; Diff Status Complete; Large Platelets 1+; Platelet Estimate Consistent w Auto; Poikilocytosis 1+
[2016-08-29 00:27] VITALS: BP 133/63
[2016-08-29] MEDS: HEPARIN SUB-Q SCH (07:18)
[2016-08-29 08:29] LABS: Basophils % (Auto) 0.2 % (0.0-1.8); Eosinophils % (Auto) 0.1 % (0.0-4.3); Hematocrit 34.5 % (30.3-42.9); Mean Corpuscular HGB Conc 32 % (30-34); Mean Corpuscular Hemoglobin 27 pg (28-32); Mean Corpuscular Volume 83 fl (79-97); Platelet Count 310 K/mm3 (140-440); Red Blood Count 4.15 M/mm3 (3.65-5.03); Red Cell Distribution Width 14.3 % (13.2-15.2); White Blood Count 17.2 K/mm3 (4.5-11.0)
[2016-08-29 08:44] LABS: Anion Gap 19 mmol/L; BUN/Creatinine Ratio 11.25; Blood Urea Nitrogen 9 mg/dL (7-17); Calcium 9.1 mg/dL (8.4-10.2); Carbon Dioxide 21 mmol/L (22-30); Chloride 104.4 mmol/L (98-107); Glucose 116 mg/dL (65-100); Potassium 4.3 mmol/L (3.6-5.0); Sodium 140 mmol/L (137-145)
--- NOTE | 2016-08-29 08:54 | Discharge Summary ---
Providers - Providers Date of Admission: 08/28/16 15:44 Date of discharge: 08/29/16 Attending physician: MONSTER BELL Primary care physician: ARMANDO GARY MD Hospitalization Condition: Stable Hospital course: Discharge Diagnosis: (1) Seizure disorder Current Visit: Yes Status: Acute Plan to address problem: CT of the head shows no acute findings except encephalomalacia in the frontal lobes DT of the C-spine shows spondylolisthesis in no acute findings We'll admit the patient to observation status Start the patient on intravenous Keppra Keep nothing by mouth No need for any EEG as apparently she had one recently start on diet once she is more oriented and alert (2) HTN (hypertension) Current Visit: No Status: Acute Qualifiers: Hypertension type: essential hypertension Qualified Code(s): I10 - Essential (primary) hypertension Plan to address problem: Preferred this time is in the normal range We will hold amlodipine as she is nothing by mouth watch her blood pressure closely Disposition: LEFT AGAINST MEDICAL ADVICE Time spent for discharge: 32 minutes Core Measure Documentation - Palliative Care Palliative Care/ Comfort Measures: Not Applicable - Core Measures Any of the following diagnoses?: none Exam - Constitutional Vitals: Temp Pulse Resp BP Pulse Ox 98.4 F 70 18 133/63 100 08/29/16 00:25 08/29/16 00:25 08/29/16 00:25 08/29/16 00:25 08/29/16 00:25 General appearance: Present: no acute distress, well-nourished - EENT Eyes: Present: PERRL ENT: hearing intact, clear oral mucosa - Neck Neck: Present: supple, normal ROM - Respiratory Respiratory effort: normal Respiratory: bilateral: CTA - Cardiovascular Heart Sounds: Present: S1 & S2. Absent: rub, click - Extremities Extremities: pulses symmetrical, No edema Peripheral Pulses: within normal limits - Abdominal General gastrointestinal: Present: soft, non-tender, non-distended, normal bowel sounds Female genitourinary: Present: normal - Integumentary Integumentary: Present: clear, warm, dry - Musculoskeletal Musculoskeletal: gait normal, strength equal bilaterally - Psychiatric Psychiatric: appropriate mood/affect, intact judgment & insight - Neurologic Neurologic: CNII-XII intact, moves all extremities Plan Activity: fall precautions Weight Bearing Status: Non-Weight Bearing Diet: low fat, low salt Follow up with: PRIMARY CARE, [Primary Care Provider] - 3-5 Days Prescriptions: amLODIPine [Norvasc] 5 mg PO QDAY #30 tablet levETIRAcetam [Keppra TAB] 1,000 mg PO BID #60 tablet
[2016-08-29] MEDS: KEPPRA 1,000 MG/NS 0.75% 100ML 1,000 MG/100 ML BAG IV SCH (09:11)
[2016-08-29] MEDS: KEPPRA 1,000 MG in D5W 100 ML IV SCH ×2 (09:28→09:30)
== END 2016-08-29 10:20 | disposition left against medical advice (07) ==
LOC: ED 13:11 → 3A 15:44
PROVIDERS: ADMIT Internal Medicine; ATTEND Internal Medicine
DX: G40.909 Epilepsy, unspecified, not intractable, without status epilepticus (principal); S01.81XA Laceration without foreign body of other part of head, initial encounter; S09.90XA Unspecified injury of head, initial encounter; I10 Essential (primary) hypertension; X58.XXXA Exposure to other specified factors, initial encounter; Y93.89 Activity, other specified; Y92.89 Other specified places as the place of occurrence of the external cause; Y99.8 Other external cause status
CPT/HCPCS: 12013; 36415; 70450; 72125; 80048; 81001; 83735; 85007; 85025; 94760; 96361; 96365; 96375; 99285; G0378; J1644; J1953

== ENCOUNTER 2016-11-06 19:50 | Emergency (ER) | payer MEDICARE ==
[2016-11-06] MEDS ORDERED: KEPPRA 1,000 MG/NS 0.75% 100ML 1,000 MG/100 ML BAG IV ONE (20:33)
--- NOTE | 2016-11-06 20:42 | Emergency Department Report ---
HPI - General Chief Complaint: Seizure Time Seen by Provider: 11/06/16 20:32 - HPI HPI: Room 9 The patient is a 56-year-old female presenting with a chief complaint seizure. Patient reportedly has a history of seizures and takes Keppra. EMS reports patient was found on the floor by family having a seizure. Upon EMS arrival the patient was postictal. Patient had another seizure en route to the hospital and was administered Ativan 2 mg IV. Patient is currently postictal at this time and only opens her eyes to voice. Patient does not follow commands currently. Location: Central nervous system Duration: [see above] Quality: Generalized tonic-clonic Severity: Moderate Modifying factors: [see above] Context: [see above] Mode of transportation: [not driving] ED Past Medical Hx - Past Medical History Hx Hypertension: Yes (Since age 36) Hx Seizures: Yes Additional medical history: LISSETH - Surgical History Additional Surgical History: LISSETH - Family History Family history: no significant - Social History Smoking Status: Never Smoker - Medications Home Medications: Home Medications Medication Instructions Recorded Confirmed Last Taken Type amLODIPine [Norvasc] 5 mg PO QDAY #30 tablet 08/29/16 Unknown Rx Ambien 5 mg PO QHS PRN 11/06/16 11/06/16 Unknown History Mag-Ox 400 mg PO DAILY 11/06/16 11/06/16 Unknown History SUMAtriptan Succinate 50 mg PO BID PRN 11/06/16 11/06/16 Unknown History levETIRAcetam [Keppra TAB] 500 mg PO BID PRN 11/06/16 11/06/16 Unknown History traZODone 50 mg pe PO QHS PRN 11/06/16 11/06/16 Unknown History ED Review of Systems ROS: Stated complaint: SEIZURES Other details as noted in HPI Comment: Unobtainable due to pts medical conditions Physical Exam - Physical Exam Vital Signs: Vital Signs 11/06/16 11/06/16 20:01 20:07 Temperature 97.6 F Pulse Rate 97 H Respiratory 18 18 Rate Blood Pressure 134/82 Blood Pressure 134/82 [Left] O2 Sat by Pulse 97 97 Oximetry Physical Exam: GENERAL: The patient is well-developed well-nourished female lying on stretcher postictal. Patient opens eyes to verbal stimuli but does not speak or follow commands HEENT: Normocephalic. Atraumatic. Pupils 3-2 mm bilaterally. Patient has moist mucous membranes. NECK: Supple. Trachea midline CHEST/LUNGS: Clear to auscultation. There is no respiratory distress noted. HEART/CARDIOVASCULAR: Regular. There is no tachycardia. There is no gallop rub or murmur. ABDOMEN: Abdomen is soft, nontender. Patient has normal bowel sounds. There is no abdominal distention. SKIN: There is no rash. There is no edema. There is no diaphoresis. NEURO: The patient is postictal. Patient opens eyes to verbal stimuli but does not speak or follow commands MUSCULOSKELETAL: There is no evidence of acute injury. ED Course Vital Signs 11/06/16 11/06/16 20:01 20:07 Temperature 97.6 F Pulse Rate 97 H Respiratory 18 18 Rate Blood Pressure 134/82 Blood Pressure 134/82 [Left] O2 Sat by Pulse 97 97 Oximetry - Reevaluation(s) Reevaluation #1: 11/06/16 22:05 Patient awake and responds to questions by shaking or nodding her head. Patient denies any complaints currently. Patient acknowledges she has been compliant with her seizure medication Reevaluation #2: 11/06/16 22:31 Patient now alert and answering questions appropriately. Cranial nerves II through XII grossly intact, no drift. Outpatient Admitting Clerk 5+/5 bilaterally. Moves all extremities well. Patient without complaints ED Medical Decision Making - Lab Data Result diagrams: 11/06/16 20:57 11/06/16 20:57 Laboratory Tests 11/06/16 11/06/16 20:57 20:57 WBC 13.3 H RBC 4.74 Hgb 12.4 Hct 38.2 MCV 81 MCH 26 L MCHC 33 RDW 15.4 H Plt Count 395 Lymph % (Auto) 9.1 L [place] % (Auto) 5.7 Eos % (Auto) 0.1 Baso % (Auto) 0.2 Lymph # 1.2 [place]ta # 0.8 Eos # 0.0 Baso # 0.0 Seg Neutrophils % 84.9 H Seg Neutrophils # 11.3 H Sodium 142 Potassium 4.0 Chloride 101.8 Carbon Dioxide 23 Anion Gap 21 BUN 14 Creatinine 1.0 Estimated GFR > 60 BUN/Creatinine Ratio 14.00 Glucose 105 H Calcium 9.9 Magnesium 2.20 - Differential Diagnosis epilepsy, postictal state, status epilepticus Critical care attestation.: If time is entered above; I have spent that time in minutes in the direct care of this critically ill patient, excluding procedure time. ED Disposition Clinical Impression: Seizure Disposition: [id number] TO HOME OR SELFCARE Is pt being admited?: No Does the pt Need Aspirin: No Condition: Stable Instructions: Epilepsy (ED) Additional Instructions: Return to the emergency department immediately should you develop worsening symptoms, fever, inability to tolerate food or liquid or any other concerns. Referrals: PRIMARY CARE, [Primary Care Provider] - 3-5 Days Time of Disposition: 22:32
[2016-11-06 21:23] LABS: Basophils % (Auto) 0.2 % (0.0-1.8); Eosinophils % (Auto) 0.1 % (0.0-4.3); Hematocrit 38.2 % (30.3-42.9); Hemoglobin 12.4 gm/dl (10.1-14.3); Mean Corpuscular HGB Conc 33 % (30-34); Mean Corpuscular Hemoglobin 26 pg (28-32); Mean Corpuscular Volume 81 fl (79-97); Platelet Count 395 K/mm3 (140-440); Red Blood Count 4.74 M/mm3 (3.65-5.03); Red Cell Distribution Width 15.4 % (13.2-15.2); White Blood Count 13.3 K/mm3 (4.5-11.0)
[2016-11-06 21:31] LABS: Anion Gap 21 mmol/L; Blood Urea Nitrogen 14 mg/dL (7-17); Calcium 9.9 mg/dL (8.4-10.2); Carbon Dioxide 23 mmol/L (22-30); Chloride 101.8 mmol/L (98-107); Glucose 105 mg/dL (65-100); Sodium 142 mmol/L (137-145)
[2016-11-06 23:04] VITALS: BP 116/80
== END 2016-11-06 23:22 | disposition home or self-care (01) ==
LOC: ED 19:50
DX: R56.9 Unspecified convulsions (principal)
CPT/HCPCS: 36415; 80048; 82962; 83735; 85025; 96374; 99284; J1953

== ENCOUNTER 2016-12-11 23:13 | Inpatient (IN) | payer MEDICARE ==
[2016-12-12] MEDS ORDERED: KEPPRA 1,000 MG/NS 0.75% 100ML 1,000 MG/100 ML BAG IV ONE (01:13)
--- NOTE | 2016-12-12 01:28 | Emergency Department Report ---
HPI - General Chief Complaint: Seizure Time Seen by Provider: 12/12/16 01:12 - HPI HPI: Room 22 The patient is a 56-year-old female presenting with a chief complaint of seizure. Per EMS the patient had a seizure and was postictal upon arrival. Patient has a history of seizures and takes Keppra. Patient is still postictal currently when asked how she is feeling she is repetitive and states that she has seizures that she feels "all right." Location: [facility] Duration: Unknown Quality: [see above] Severity: Unknown Modifying factors: [see above] Context: [see above] Mode of transportation: EMS ED Past Medical Hx - Past Medical History Previous Medical History?: Yes Hx Hypertension: Yes (Since age 36) Hx Seizures: Yes Additional medical history: LISSETH - Surgical History Past Surgical History?: Yes Additional Surgical History: LISSETH - Family History Family history: no significant - Social History Smoking Status: Unknown if ever smoked - Medications Home Medications: Home Medications Medication Instructions Recorded Confirmed Last Taken Type amLODIPine [Norvasc] 5 mg PO QDAY #30 tablet 08/29/16 Unknown Rx Ambien 5 mg PO QHS PRN 11/06/16 11/06/16 Unknown History Mag-Ox 400 mg PO DAILY 11/06/16 11/06/16 Unknown History SUMAtriptan Succinate 50 mg PO BID PRN 11/06/16 11/06/16 Unknown History levETIRAcetam [Keppra TAB] 500 mg PO BID PRN 11/06/16 11/06/16 Unknown History traZODone 50 mg pe PO QHS PRN 11/06/16 11/06/16 Unknown History ED Review of Systems ROS: Stated complaint: SEIZURE Other details as noted in HPI Comment: Unobtainable due to pts medical conditions Physical Exam - Physical Exam Vital Signs: Vital Signs 12/11/16 12/11/16 12/11/16 23:07 23:15 23:17 Temperature 97.8 F Pulse Rate 100 H 101 H Respiratory 25 H 20 Rate Blood Pressure 155/80 155/80 O2 Sat by Pulse 94 98 Oximetry Physical Exam: GENERAL: The patient is well-developed well-nourished female. [] HEENT: Normocephalic. Atraumatic. Extraocular motions are intact. Patient has moist mucous membranes. NECK: Supple. Trachea midline CHEST/LUNGS: Clear to auscultation. There is no respiratory distress noted. HEART/CARDIOVASCULAR: Regular. There is no tachycardia. There is no gallop rub or murmur. ABDOMEN: Abdomen is soft, nontender. Patient has normal bowel sounds. There is no abdominal distention. SKIN: There is no rash. There is no edema. There is no diaphoresis. NEURO: The patient is awake but still appears postictal as she is repetitive does not answer all questions appropriately. The patient is intermittently cooperative. The patient has normal speech MUSCULOSKELETAL: There is no evidence of acute injury. ED Course Vital Signs 12/11/16 12/11/16 12/11/16 23:07 23:15 23:17 Temperature 97.8 F Pulse Rate 100 H 101 H Respiratory 25 H 20 Rate Blood Pressure 155/80 155/80 O2 Sat by Pulse 94 98 Oximetry - Reevaluation(s) Reevaluation #1: 12/12/16 04:37 Patient continues to appear postictal as she is unable to answer questions such as which medication she takes for seizures or tell me the current year. ED Medical Decision Making - Lab Data Result diagrams: 12/12/16 00:45 12/12/16 00:45 Laboratory Tests 12/12/16 12/12/16 12/12/16 00:45 00:45 00:45 WBC 23.0 H RBC 4.71 Hgb 12.6 Hct 39.8 MCV 84 MCH 27 L MCHC 32 RDW 16.8 H Plt Count 364 Add Manual Diff Complete Total Counted 100 Seg Neuts % (Manual) 93.0 H Band Neutrophils % 1.0 Lymphocytes % (Manual) 2.0 L Reactive Lymphs % (Man) 0 Monocytes % (Manual) 4.0 Eosinophils % (Manual) 0 Basophils % (Manual) 0 Metamyelocytes % 0 Myelocytes % 0 Promyelocytes % 0 Blast Cells % 0 Nucleated RBC % Not Reportable Seg Neutrophils # Man 21.4 H Band Neutrophils # 0.2 Lymphocytes # (Manual) 0.5 L Abs React Lymphs (Man) 0.0 Monocytes # (Manual) 0.9 H Eosinophils # (Manual) 0.0 Basophils # (Manual) 0.0 Metamyelocytes # 0.0 Myelocytes # 0.0 Promyelocytes # 0.0 Blast Cells # 0.0 WBC Morphology Not Reportable Hypersegmented Neuts Not Reportable Hyposegmented Neuts Not Reportable Hypogranular Neuts Not Reportable Smudge Cells Not Reportable Toxic Granulation Not Reportable Toxic Vacuolation Not Reportable Dohle Bodies Not Reportable Pelger-Huet Anomaly Not Reportable Ami Rods Not Reportable Platelet Estimate Appears normal Clumped Platelets Not Reportable Plt Clumps, EDTA Not Reportable Large Platelets Not Reportable Giant Platelets Not Reportable Platelet Satelliting Not Reportable Plt Morphology Comment Not Reportable RBC Morphology Normal Dimorphic RBCs Not Reportable Polychromasia Not Reportable Hypochromasia Not Reportable Poikilocytosis Not Reportable Anisocytosis Not Reportable Microcytosis Not Reportable Macrocytosis Not Reportable Spherocytes Not Reportable Pappenheimer Bodies Not Reportable Sickle Cells Not Reportable Target Cells Not Reportable Tear Drop Cells Not Reportable Ovalocytes Not Reportable Helmet Cells Not Reportable [place] Bodies Not Reportable [place] Rings Not Reportable [place] Cells Not Reportable Bite Cells Not Reportable Crenated Cell Not Reportable Elliptocytes Not Reportable Acanthocytes (Spur) Not Reportable Rouleaux Not Reportable Hemoglobin C Crystals Not Reportable Schistocytes Not Reportable Malaria parasites Not Reportable Marvin Bodies Not Reportable Hem Pathologist Commnt No Sodium 146 H Potassium 3.4 L Chloride 102.5 Carbon Dioxide 20 L Anion Gap 27 BUN 18 H Creatinine 1.1 Estimated GFR > 60 BUN/Creatinine Ratio 16.36 Glucose 106 H Calcium 10.2 Magnesium 2.40 H - Differential Diagnosis seizure disorder Critical care attestation.: If time is entered above; I have spent that time in minutes in the direct care of this critically ill patient, excluding procedure time. ED Disposition Clinical Impression: Seizure disorder, Postictal state Disposition: -09 OP ADMIT IP TO THIS HOSP Is pt being admited?: Yes Does the pt Need Aspirin: Yes Condition: Fair Referrals: PRIMARY CARE, [Primary Care Provider] - 3-5 Days Time of Disposition: 04:38 (hospitalist paged)
[2016-12-12 01:37] LABS: Hematocrit 39.8 % (30.3-42.9); Hemoglobin 12.6 gm/dl (10.1-14.3); Mean Corpuscular HGB Conc 32 % (30-34); Mean Corpuscular Hemoglobin 27 pg (28-32); Mean Corpuscular Volume 84 fl (79-97); Platelet Count 364 K/mm3 (140-440); Red Blood Count 4.71 M/mm3 (3.65-5.03); Red Cell Distribution Width 16.8 % (13.2-15.2)
[2016-12-12 01:52] LABS: Anion Gap 27 mmol/L; BUN/Creatinine Ratio 16.36; Blood Urea Nitrogen 18 mg/dL (7-17); Calcium 10.2 mg/dL (8.4-10.2); Carbon Dioxide 20 mmol/L (22-30); Chloride 102.5 mmol/L (98-107); Glucose 106 mg/dL (65-100); Potassium 3.4 mmol/L (3.6-5.0); Sodium 146 mmol/L (137-145)
[2016-12-12 03:24] LABS: Basophils % (Manual) 0 % (0.0-1.8); Blastocytes % (Manual) 0 %; Diff Status Complete; Eosinophils % (Manual) 0 % (0.0-4.3); RBC Morphology Normal
[2016-12-12] MEDS ORDERED: ATIVAN ONE (04:34)
[2016-12-12] MEDS ORDERED: ATIVAN IV ONE (04:37)
[2016-12-12] MEDS ORDERED: DULCOLAX PR PRN (07:54)
[2016-12-12] MEDS ORDERED: TYLENOL PO PRN (07:54)
[2016-12-12] MEDS ORDERED: SUMATRIPTAN SUCCINATE 50 MG PO PRN (07:56)
--- NOTE | 2016-12-12 08:11 | History and Physical Report ---
<CABRERA DILLON - Last Filed: 12/12/16 13:51> History of Present Illness Date of examination: 12/12/16 Date of admission: 12/12/2016 Chief complaint: Seizure History of present illness: Patient is a 56-year-old -[place] female with history of seizure disorder, hypertension and migraine who presents to the emergency department for post ictal generalized tonic-clonic seizure. Patient at present time on post ictal state. Unable to obtain history. Patient was admitted two weeks ago here ([facility]) for the same reason. Patient is noncompliance with her seizure medication because of forgetfulness. Past History Past Medical History: hypertension, migraines, seizures Medications and Allergies Allergies Allergy/AdvReac Type Severity Reaction Status Date / Time peanut Allergy Unknown Verified 06/08/16 20:38 Home Medications Medication Instructions Recorded Confirmed Last Taken Type amLODIPine [Norvasc] 5 mg PO QDAY #30 tablet 08/29/16 Unknown Rx Ambien 5 mg PO QHS PRN 11/06/16 11/06/16 Unknown History Mag-Ox 400 mg PO DAILY 11/06/16 11/06/16 Unknown History SUMAtriptan Succinate 50 mg PO BID PRN 11/06/16 11/06/16 Unknown History levETIRAcetam [Keppra TAB] 500 mg PO BID PRN 11/06/16 11/06/16 Unknown History traZODone 50 mg pe PO QHS PRN 11/06/16 11/06/16 Unknown History Active Meds: Active Medications Acetaminophen (Tylenol) 650 mg PO Q4H PRN PRN Reason: Pain MILD(1-3)/Fever >100.5/BISWAS Amlodipine Besylate (Norvasc) 5 mg PO QDAY BREANN Bisacodyl (Dulcolax) 10 mg [place] QDAY PRN PRN Reason: Constipation unrelieved by MOM Levetiracetam 500 mg/ Dextrose 105 mls @ 400 mls/hr IV Q12HR ONE Stop: 12/12/16 08:20 Miscellaneous Medication (Sumatriptan Succinate) 50 mg PO BID PRN PRN Reason: Migraine Headache Review of Systems ROS unobtainable: due to mental status (Patient post ictal state) Exam - Constitutional Vitals: Temp Pulse Resp BP Pulse Ox 98.3 F 62 12 147/77 100 12/12/16 01:51 08/03/17 06:31 12/12/16 06:31 12/12/16 06:31 12/12/16 06:31 General appearance: Present: mild distress, other (Patient post ictal state, very letargic.) - EENT Eyes: Present: PERRL ENT: hearing intact - Neck Neck: Present: supple - Respiratory Respiratory effort: normal Respiratory: bilateral: CTA - Cardiovascular Heart rate: 62 Rhythm: regular Heart Sounds: Present: S1 & S2 - Extremities Extremities: no ischemia, No edema Peripheral Pulses: within normal limits - Abdominal General gastrointestinal: Present: soft, non-tender Female genitourinary: Present: deferred - Rectal Rectal Exam: deferred - Integumentary Integumentary: Present: clear, warm, dry - Musculoskeletal Musculoskeletal: strength equal bilaterally - Psychiatric Psychiatric: appropriate mood/affect - Neurologic Neurologic: moves all extremities, other (post ictal state ) - Allied Health Allied health notes reviewed: nursing Results - Labs CBC & Chem 7: 12/12/16 08:01 12/12/16 08:01 Labs: Laboratory Last Values WBC 23.0 K/mm3 (4.5-11.0) H 12/12/16 00:45 RBC 4.71 M/mm3 (3.65-5.03) 12/12/16 00:45 Hgb 12.6 gm/dl (10.1-14.3) 12/12/16 00:45 Hct 39.8 % (30.3-42.9) 12/12/16 00:45 MCV 84 fl (79-97) 12/12/16 00:45 MCH 27 pg (28-32) L 12/12/16 00:45 MCHC 32 % (30-34) 12/12/16 00:45 RDW 16.8 % (13.2-15.2) H 12/12/16 00:45 Plt Count 364 K/mm3 (140-440) 12/12/16 00:45 Add Manual Diff Complete 12/12/16 00:45 Total Counted 100 12/12/16 00:45 Seg Neuts % (Manual) 93.0 % (40.0-70.0) H 12/12/16 00:45 Band Neutrophils % 1.0 % 12/12/16 00:45 Lymphocytes % (Manual) 2.0 % (13.4-35.0) L 12/12/16 00:45 Reactive Lymphs % (Man) 0 % 12/12/16 00:45 Monocytes % (Manual) 4.0 % (0.0-7.3) 12/12/16 00:45 Eosinophils % (Manual) 0 % (0.0-4.3) 12/12/16 00:45 Basophils % (Manual) 0 % (0.0-1.8) 12/12/16 00:45 Metamyelocytes % 0 % 12/12/16 00:45 Myelocytes % 0 % 12/12/16 00:45 Promyelocytes % 0 % 12/12/16 00:45 Blast Cells % 0 % 12/12/16 00:45 Nucleated RBC % Not Reportable 12/12/16 00:45 Seg Neutrophils # Man 21.4 K/mm3 (1.8-7.7) H 12/12/16 00:45 Band Neutrophils # 0.2 K/mm3 12/12/16 00:45 Lymphocytes # (Manual) 0.5 K/mm3 (1.2-5.4) L 12/12/16 00:45 Abs React Lymphs (Man) 0.0 K/mm3 12/12/16 00:45 Monocytes # (Manual) 0.9 K/mm3 (0.0-0.8) H 12/12/16 00:45 Eosinophils # (Manual) 0.0 K/mm3 (0.0-0.4) 12/12/16 00:45 Basophils # (Manual) 0.0 K/mm3 (0.0-0.1) 12/12/16 00:45 Metamyelocytes # 0.0 K/mm3 12/12/16 00:45 Myelocytes # 0.0 K/mm3 12/12/16 00:45 Promyelocytes # 0.0 K/mm3 12/12/16 00:45 Blast Cells # 0.0 K/mm3 12/12/16 00:45 WBC Morphology Not Reportable 12/12/16 00:45 Hypersegmented Neuts Not Reportable 12/12/16 00:45 Hyposegmented Neuts Not Reportable 12/12/16 00:45 Hypogranular Neuts Not Reportable 12/12/16 00:45 Smudge Cells Not Reportable 12/12/16 00:45 Toxic Granulation Not Reportable 12/12/16 00:45 Toxic Vacuolation Not Reportable 12/12/16 00:45 Dohle Bodies Not Reportable 12/12/16 00:45 Pelger-Huet Anomaly Not Reportable 12/12/16 00:45 Ami Rods Not Reportable 12/12/16 00:45 Platelet Estimate Appears normal 12/12/16 00:45 Clumped Platelets Not Reportable 12/12/16 00:45 Plt Clumps, EDTA Not Reportable 12/12/16 00:45 Large Platelets Not Reportable 12/12/16 00:45 Giant Platelets Not Reportable 12/12/16 00:45 Platelet Satelliting Not Reportable 12/12/16 00:45 Plt Morphology Comment Not Reportable 12/12/16 00:45 RBC Morphology Normal 12/12/16 00:45 Dimorphic RBCs Not Reportable 12/12/16 00:45 Polychromasia Not Reportable 12/12/16 00:45 Hypochromasia Not Reportable 12/12/16 00:45 Poikilocytosis Not Reportable 12/12/16 00:45 Anisocytosis Not Reportable 12/12/16 00:45 Microcytosis Not Reportable 12/12/16 00:45 Macrocytosis Not Reportable 12/12/16 00:45 Spherocytes Not Reportable 12/12/16 00:45 Pappenheimer Bodies Not Reportable 12/12/16 00:45 Sickle Cells Not Reportable 12/12/16 00:45 Target Cells Not Reportable 12/12/16 00:45 Tear Drop Cells Not Reportable 12/12/16 00:45 Ovalocytes Not Reportable 12/12/16 00:45 Helmet Cells Not Reportable 12/12/16 00:45 [place] Bodies Not Reportable 12/12/16 00:45 [place] Rings Not Reportable 12/12/16 00:45 [place] Cells Not Reportable 12/12/16 00:45 Bite Cells Not Reportable 12/12/16 00:45 Crenated Cell Not Reportable 12/12/16 00:45 Elliptocytes Not Reportable 12/12/16 00:45 Acanthocytes (Spur) Not Reportable 12/12/16 00:45 Rouleaux Not Reportable 12/12/16 00:45 Hemoglobin C Crystals Not Reportable 12/12/16 00:45 Schistocytes Not Reportable 12/12/16 00:45 Malaria parasites Not Reportable 12/12/16 00:45 Marvin Bodies Not Reportable 12/12/16 00:45 Hem Pathologist Commnt No 12/12/16 00:45 Sodium 146 mmol/L (137-145) H 12/12/16 00:45 Potassium 3.4 mmol/L (3.6-5.0) L 12/12/16 00:45 Chloride 102.5 mmol/L (98-107) 12/12/16 00:45 Carbon Dioxide 20 mmol/L (22-30) L 12/12/16 00:45 Anion Gap 27 mmol/L 12/12/16 00:45 BUN 18 mg/dL (7-17) H 12/12/16 00:45 Creatinine 1.1 mg/dL (0.7-1.2) 12/12/16 00:45 Estimated GFR > 60 ml/min 12/12/16 00:45 BUN/Creatinine Ratio 16.36 % 12/12/16 00:45 Glucose 106 mg/dL (65-100) H 12/12/16 00:45 Calcium 10.2 mg/dL (8.4-10.2) 12/12/16 00:45 Magnesium 2.40 mg/dL (1.7-2.3) H 12/12/16 00:45 Assessment and Plan Assessment and plan: ASSESSMENT/PLAN Post-Ictal State We will admit the patient to MED/Surg floor We will get CT of the head ordered EEG ordered Keep patient NPO Started on IV keppera for now and we will transition to PO when patient is alert and oriented. Neurology consulted. Seizure disorder Started on IV Keepra Seizure precautions Neurology consulted Leukocytosis Etiology unknown we will treat the underline cause SIRS With leukocytosis Most likely due to Seizure that she had Blood culture and urine collected prior to antibiotic. Also we will get lactic acid level. WE initiate empiric antibiotic treatment Levaquin for now. We will likely discontinue if patient remains afebrile and continues to do well. Closely monitor patient HTN (hypertension) We will hold PO antihypertensive medications until patient become alert and oriented IV hydralazine when necessary for SBP >160 Hypokalemia Replaced with IV 20meq Closely monitor electrolytes DVT prophylaxis Lovenox Advance Directives: Yes Contraindication Mechanical VTE Prophylaxis: Treatment Not Indicated Plan of care discussed with patient/family: Yes <ANTWON BUTTERFIELD - Last Filed: 12/12/16 15:04> History of Present Illness Date of admission: 12/12/16 07:54 Medications and Allergies Active Meds: Active Medications Acetaminophen (Tylenol) 650 mg PO Q4H PRN PRN Reason: Pain MILD(1-3)/Fever >100.5/BISWAS Bisacodyl (Dulcolax) 10 mg [place] QDAY PRN PRN Reason: Constipation unrelieved by MOM Hydralazine HCl (Apresoline) 10 mg IV Q4H PRN PRN Reason: SBP>160 Levetiracetam 500 mg/ Dextrose 105 mls @ 400 mls/hr IV Q12HR BREANN Last Admin: 12/12/16 12:27 Dose: 400 mls/hr Sumatriptan Succinate (Imitrex) 50 mg PO BID PRN PRN Reason: Migraine Headache Exam - Constitutional Vitals: Temp Pulse Resp BP Pulse Ox 97.8 F 64 18 169/88 98 12/12/16 12:42 12/12/16 12:42 12/12/16 12:42 12/12/16 12:42 12/12/16 12:42 Results - Labs CBC & Chem 7: 12/12/16 08:01 12/12/16 08:01 Labs: Laboratory Last Values WBC 17.6 K/mm3 (4.5-11.0) H 12/12/16 08:01 RBC 4.34 M/mm3 (3.65-5.03) 12/12/16 08:01 Hgb 11.5 gm/dl (10.1-14.3) 12/12/16 08:01 Hct 35.5 % (30.3-42.9) 12/12/16 08:01 MCV 82 fl (79-97) 12/12/16 08:01 MCH 27 pg (28-32) L 12/12/16 08:01 MCHC 32 % (30-34) 12/12/16 08:01 RDW 16.7 % (13.2-15.2) H 12/12/16 08:01 Plt Count 344 K/mm3 (140-440) 12/12/16 08:01 Lymph % (Auto) 9.7 % (13.4-35.0) L 12/12/16 08:01 [place] % (Auto) 6.7 % (0.0-7.3) 12/12/16 08:01 Eos % (Auto) 0.1 % (0.0-4.3) 12/12/16 08:01 Baso % (Auto) 0.3 % (0.0-1.8) 12/12/16 08:01 Lymph # 1.7 K/mm3 (1.2-5.4) 12/12/16 08:01 [place] # 1.2 K/mm3 (0.0-0.8) H 12/12/16 08:01 Eos # 0.0 K/mm3 (0.0-0.4) 12/12/16 08:01 Baso # 0.0 K/mm3 (0.0-0.1) 12/12/16 08:01 Add Manual Diff Complete 12/12/16 00:45 Total Counted 100 12/12/16 00:45 Seg Neutrophils % 83.2 % (40.0-70.0) H 12/12/16 08:01 Seg Neuts % (Manual) 93.0 % (40.0-70.0) H 12/12/16 00:45 Band Neutrophils % 1.0 % 12/12/16 00:45 Lymphocytes % (Manual) 2.0 % (13.4-35.0) L 12/12/16 00:45 Reactive Lymphs % (Man) 0 % 12/12/16 00:45 Monocytes % (Manual) 4.0 % (0.0-7.3) 12/12/16 00:45 Eosinophils % (Manual) 0 % (0.0-4.3) 12/12/16 00:45 Basophils % (Manual) 0 % (0.0-1.8) 12/12/16 00:45 Metamyelocytes % 0 % 12/12/16 00:45 Myelocytes % 0 % 12/12/16 00:45 Promyelocytes % 0 % 12/12/16 00:45 Blast Cells % 0 % 12/12/16 00:45 Nucleated RBC % Not Reportable 12/12/16 00:45 Seg Neutrophils # 14.6 K/mm3 (1.8-7.7) H 12/12/16 08:01 Seg Neutrophils # Man 21.4 K/mm3 (1.8-7.7) H 12/12/16 00:45 Band Neutrophils # 0.2 K/mm3 12/12/16 00:45 Lymphocytes # (Manual) 0.5 K/mm3 (1.2-5.4) L 12/12/16 00:45 Abs React Lymphs (Man) 0.0 K/mm3 12/12/16 00:45 Monocytes # (Manual) 0.9 K/mm3 (0.0-0.8) H 12/12/16 00:45 Eosinophils # (Manual) 0.0 K/mm3 (0.0-0.4) 12/12/16 00:45 Basophils # (Manual) 0.0 K/mm3 (0.0-0.1) 12/12/16 00:45 Metamyelocytes # 0.0 K/mm3 12/12/16 00:45 Myelocytes # 0.0 K/mm3 12/12/16 00:45 Promyelocytes # 0.0 K/mm3 12/12/16 00:45 Blast Cells # 0.0 K/mm3 12/12/16 00:45 WBC Morphology Not Reportable 12/12/16 00:45 Hypersegmented Neuts Not Reportable 12/12/16 00:45 Hyposegmented Neuts Not Reportable 12/12/16 00:45 Hypogranular Neuts Not Reportable 12/12/16 00:45 Smudge Cells Not Reportable 12/12/16 00:45 Toxic Granulation Not Reportable 12/12/16 00:45 Toxic Vacuolation Not Reportable 12/12/16 00:45 Dohle Bodies Not Reportable 12/12/16 00:45 Pelger-Huet Anomaly Not Reportable 12/12/16 00:45 Ami Rods Not Reportable 12/12/16 00:45 Platelet Estimate Appears normal 12/12/16 00:45 Clumped Platelets Not Reportable 12/12/16 00:45 Plt Clumps, EDTA Not Reportable 12/12/16 00:45 Large Platelets Not Reportable 12/12/16 00:45 Giant Platelets Not Reportable 12/12/16 00:45 Platelet Satelliting Not Reportable 12/12/16 00:45 Plt Morphology Comment Not Reportable 12/12/16 00:45 RBC Morphology Normal 12/12/16 00:45 Dimorphic RBCs Not Reportable 12/12/16 00:45 Polychromasia Not Reportable 12/12/16 00:45 Hypochromasia Not Reportable 12/12/16 00:45 Poikilocytosis Not Reportable 12/12/16 00:45 Anisocytosis Not Reportable 12/12/16 00:45 Microcytosis Not Reportable 12/12/16 00:45 Macrocytosis Not Reportable 12/12/16 00:45 Spherocytes Not Reportable 12/12/16 00:45 Pappenheimer Bodies Not Reportable 12/12/16 00:45 Sickle Cells Not Reportable 12/12/16 00:45 Target Cells Not Reportable 12/12/16 00:45 Tear Drop Cells Not Reportable 12/12/16 00:45 Ovalocytes Not Reportable 12/12/16 00:45 Helmet Cells Not Reportable 12/12/16 00:45 [place] Bodies Not Reportable 12/12/16 00:45 [place] Rings Not Reportable 12/12/16 00:45 [place] Cells Not Reportable 12/12/16 00:45 Bite Cells Not Reportable 12/12/16 00:45 Crenated Cell Not Reportable 12/12/16 00:45 Elliptocytes Not Reportable 12/12/16 00:45 Acanthocytes (Spur) Not Reportable 12/12/16 00:45 Rouleaux Not Reportable 12/12/16 00:45 Hemoglobin C Crystals Not Reportable 12/12/16 00:45 Schistocytes Not Reportable 12/12/16 00:45 Malaria parasites Not Reportable 12/12/16 00:45 Marvin Bodies Not Reportable 12/12/16 00:45 Hem Pathologist Commnt No 12/12/16 00:45 Sodium 141 mmol/L (137-145) 12/12/16 08:01 Potassium 4.1 mmol/L (3.6-5.0) D 12/12/16 08:01 Chloride 105.6 mmol/L (98-107) 12/12/16 08:01 Carbon Dioxide 22 mmol/L (22-30) 12/12/16 08:01 Anion Gap 18 mmol/L 12/12/16 08:01 BUN 15 mg/dL (7-17) 12/12/16 08:01 Creatinine 0.8 mg/dL (0.7-1.2) 12/12/16 08:01 Estimated GFR > 60 ml/min 12/12/16 08:01 BUN/Creatinine Ratio 18.75 % 12/12/16 08:01 Glucose 96 mg/dL (65-100) 12/12/16 08:01 Lactic Acid 0.60 mmol/L (0.7-2.0) L 12/12/16 08:58 Calcium 9.2 mg/dL (8.4-10.2) 12/12/16 08:01 Magnesium 2.40 mg/dL (1.7-2.3) H 12/12/16 14:02 - Imaging and Cardiology CT Scan - head: image reviewed (no acute pathology) Assessment and Plan Assessment and plan: I saw and evaluated the patient. I agree with the findings and the plan of care as documented in the Nurse Practitioner's~note, with the following corrections and additions. Patient seen and examined, has had repeated admission for similar case. Patient still sedated on admission. Limited ROS, patient denies chest pain, nausea, vomiting, diarrhea, claims she take her medications. Imagaing studies unremarkabe. Will CHECK UDS.
[2016-12-12] MEDS ORDERED: APRESOLINE IV PRN (08:18)
[2016-12-12 08:24] LABS: Basophils % (Auto) 0.3 % (0.0-1.8); Eosinophils % (Auto) 0.1 % (0.0-4.3); Hematocrit 35.5 % (30.3-42.9); Hemoglobin 11.5 gm/dl (10.1-14.3); Mean Corpuscular HGB Conc 32 % (30-34); Mean Corpuscular Hemoglobin 27 pg (28-32); Mean Corpuscular Volume 82 fl (79-97); Platelet Count 344 K/mm3 (140-440); Red Blood Count 4.34 M/mm3 (3.65-5.03); Red Cell Distribution Width 16.7 % (13.2-15.2); White Blood Count 17.6 K/mm3 (4.5-11.0)
[2016-12-12] MEDS ORDERED: IMITREX PO PRN (08:31)
[2016-12-12 08:33] LABS: Anion Gap 18 mmol/L; BUN/Creatinine Ratio 18.75; Blood Urea Nitrogen 15 mg/dL (7-17); Calcium 9.2 mg/dL (8.4-10.2); Carbon Dioxide 22 mmol/L (22-30); Chloride 105.6 mmol/L (98-107); Glucose 96 mg/dL (65-100); Potassium 4.1 mmol/L (3.6-5.0); Sodium 141 mmol/L (137-145)
--- NOTE | 2016-12-12 09:00 | Cat Scan Report ---
Cranial CT without contrast. History: Post ictal evaluation. Findings: Comparison is made to the previous study on August 28, 2016. There is no evidence of acute hemorrhage or infarct. The posterior fossa is normal. Encephalomalacia in the frontal lobes bilaterally is stable. There is no mass effect. The ventricles are normal. There are no extra-axial collections. The calvarium is intact. Minimal mucoperiosteal thickening is seen in the left maxillary sinus. Impression: No acute findings or interval changes since August 28, 2016.
[2016-12-12] MEDS ORDERED: NORVASC PO SCH (10:00)
[2016-12-12] MEDS ORDERED: KEPPRA 500 MG in D5W 100 ML IV SCH (10:00)
[2016-12-12] MEDS: KCL 10MEQ/100ML 10 MEQ/100 ML BAG IV SCH ×2 (12:27→15:58)
--- NOTE | 2016-12-12 13:52 | Consultation ---
History of Present Illness - Reason for Consult Consult date: 12/12/16 seizure hx - History of Present Illness she has hx of prior use of keppra for control of seizures rec EEG and check magnesium levels I will make further rec's Thanks Past History Past Medical History: hypertension, migraines, seizures Medications and Allergies Allergies Allergy/AdvReac Type Severity Reaction Status Date / Time peanut Allergy Unknown Verified 06/08/16 20:38 Home Medications Medication Instructions Recorded Confirmed Last Taken Type amLODIPine [Norvasc] 5 mg PO QDAY #30 tablet 08/29/16 Unknown Rx Ambien 5 mg PO QHS PRN 11/06/16 11/06/16 Unknown History Mag-Ox 400 mg PO DAILY 11/06/16 11/06/16 Unknown History SUMAtriptan Succinate 50 mg PO BID PRN 11/06/16 11/06/16 Unknown History levETIRAcetam [Keppra TAB] 500 mg PO BID PRN 11/06/16 11/06/16 Unknown History traZODone 50 mg pe PO QHS PRN 11/06/16 11/06/16 Unknown History Active Meds: Active Medications Acetaminophen (Tylenol) 650 mg PO Q4H PRN PRN Reason: Pain MILD(1-3)/Fever >100.5/BISWAS Bisacodyl (Dulcolax) 10 mg [place] QDAY PRN PRN Reason: Constipation unrelieved by MOM Hydralazine HCl (Apresoline) 10 mg IV Q4H PRN PRN Reason: SBP>160 Levetiracetam 500 mg/ Dextrose 105 mls @ 400 mls/hr IV Q12HR BREANN Last Admin: 12/12/16 12:27 Dose: 400 mls/hr Sumatriptan Succinate (Imitrex) 50 mg PO BID PRN PRN Reason: Migraine Headache Exam - Constitutional Vitals: Temp Pulse Resp BP Pulse Ox 97.8 F 64 18 169/88 98 12/12/16 12:42 12/12/16 12:42 12/12/16 12:42 12/12/16 12:42 12/12/16 12:42 Results - Labs CBC & Chem 7: 12/12/16 08:01 12/12/16 08:01 Labs: Abnormal lab results 12/12/16 12/12/16 Range/Units 08:01 08:58 WBC 17.6 H (4.5-11.0) K/mm3 MCH 27 L (28-32) pg RDW 16.7 H (13.2-15.2) % Lymph % (Auto) 9.7 L (13.4-35.0) % [place] # 1.2 H (0.0-0.8) K/mm3 Seg Neutrophils % 83.2 H (40.0-70.0) % Seg Neutrophils # 14.6 H (1.8-7.7) K/mm3 Lactic Acid 0.60 L (0.7-2.0) mmol/L
--- NOTE | 2016-12-12 15:00 | Admit Criteria Form ---
Admission Criteria Documentation: SEIZURE Clinical Indications for Admission to Inpatient Care (Place 'X' for any and all applicable criteria): Admission is indicated for seizure and ANY ONE of the following(1)(2)(3)(4)(5): [X ]I. Inpatient admission required rather than observation care (Also use Seizure: Observation Care Criteria as appropriate) because of ANY ONE of the following: [ ]a) Altered mental status that is severe or persistent [ ]b) New focal neurologic deficit that is severe or persistent [ ]c) Metabolic disorder (eg, hypoglycemia, hyponatremia) that is severe or persistent [ ]d) Recurrent seizure [ ]e) Outpatient antiseizure regimen cannot be established (eg , patient cannot tolerate medication, initiation requires inpatient care) [ ]f) Need for ongoing intravenous infusion of antiseizure medication [ ]g) Cardiac arrhythmias of immediate concern [ ]h) Cerebral bleeding, hydrocephalus, or vasospasm monitoring (14) [ ]i) Increased intracranial pressure or cerebral edema monitoring (15) [ X]j) Other treatment or monitoring requiring inpatient admission [ ]II. Status epilepticus [A] or repetitive seizures not controlled with emergent treatment (6)(8) [ ]III. Brain disorder (eg, tumor, edema, and hydrocephalus) that requiring monitoring or intervention available only at inpatient level of care. [ ]IV. Brain insult (eg, severe trauma, stroke, drug toxicity, or withdrawal) that requires monitoring or intervention available only at inpatient level of care (10)(11) Extended stay beyond goal length of stay may be needed for (22) [ ]a) Complications of status epilepticus [ ]b) Refractory status epilepticus [ ]c) Etiology-specific therapy for conditions such as INTELLIGENCE OFFICER infection, head injury,eclampsia, severe metabolic abnormalities, and brain tumor [ ]d) Residual neurologic damage, [ ]e) Initiation of significant change to anticonvulsant treatment [ ]f) Older patients (65 years or older) [ ]g) Patient requiring intubation (eg, to protect airway) The original [facility] content created by [employer] has been revised. The portions of the content which have been revised are identified through the use of italic text or in bold, and [facility] [employer] has neither reviewed nor approved the modified material. All other unmodified content is copyright [facility] [employer]. Please see references footnoted in the original [facility] edition 2016 Admission Criteria Met: Yes
[2016-12-12 15:28] VITALS: BP 172/86
== END 2016-12-12 17:30 | disposition left against medical advice (07) | DRG 101 ==
LOC: ED 23:13 → 3A 12-12 07:54
PROVIDERS: ADMIT Internal Medicine; ATTEND Internal Medicine
DX: G40.901 Epilepsy, unspecified, not intractable, with status epilepticus (principal); R65.10 Systemic inflammatory response syndrome (SIRS) of non-infectious origin without acute organ dysfunction; I10 Essential (primary) hypertension; G43.909 Migraine, unspecified, not intractable, without status migrainosus; E87.6 Hypokalemia; D72.829 Elevated white blood cell count, unspecified; Z91.010 Allergy to peanuts
CPT/HCPCS: 36415; 70450; 80048; 82140; 83735; 85007; 85025; 87040; 93005; 93010; 96365; 99285; J1953; J2060; J3480

== ENCOUNTER 2017-02-11 23:46 | Emergency (ER) | payer MEDICARE ==
[2017-02-12] MEDS ORDERED: KEPPRA 1,000 MG/NS 0.75% 100ML 1,000 MG/100 ML BAG IV ONE (00:55)
--- NOTE | 2017-02-12 01:54 | Emergency Department Report ---
ED Seizure HPI - General Chief Complaint: Seizure Stated Complaint: SEIZURES Time Seen by Provider: 02/12/17 00:54 Source: EMS Mode of arrival: Stretcher Limitations: No Limitations - History of Present Illness Initial Comments: 56 yo female with a past medical history of hypertension and seizures presents to the hospital with complaints of seizure that occurred 20 minutes prior to arrival. Patient has history of frequent ED visits for seizures and has a history of prolonged post ictal state. Patient is able to follow some commands although appears to have generalized nonfocal weakness and will not speak. Patient states she has been compliant with Keppra but I am unsure of her last dose. Patient denies pain - Related Data Home Medications Medication Instructions Recorded Confirmed Last Taken Ambien 5 mg PO QHS PRN 11/06/11/06/16 Unknown Mag-Ox 400 mg PO DAILY 11/06/16 11/06/16 Unknown SUMAtriptan Succinate 50 mg PO BID PRN 11/06/16 11/06/16 Unknown levETIRAcetam [Keppra TAB] 500 mg PO BID PRN 11/06/16 11/06/16 Unknown traZODone 50 mg pe PO QHS PRN 11/06/16 11/06/16 Unknown Previous Rx's Medication Instructions Recorded Last Taken Type amLODIPine [Norvasc] 5 mg PO QDAY #30 tablet 08/29/16 Unknown Rx Allergies Allergy/AdvReac Type Severity Reaction Status Date / Time peanut Allergy Unknown Verified 06/08/16 20:38 ED Review of Systems ROS: Stated complaint: SEIZURES Other details as noted in HPI Comment: Unobtainable due to pts medical conditions (patient would not speak) ED Past Medical Hx - Past Medical History Previous Medical History?: Yes Hx Hypertension: Yes (Since age 36) Hx Seizures: Yes Additional medical history: LISSETH - Surgical History Additional Surgical History: LISSETH - Social History Smoking Status: Never Smoker Substance Use Type: None - Medications Home Medications: Home Medications Medication Instructions Recorded Confirmed Last Taken Type amLODIPine [Norvasc] 5 mg PO QDAY #30 tablet 08/29/16 Unknown Rx Ambien 5 mg PO QHS PRN 11/06/16 11/06/16 Unknown History Mag-Ox 400 mg PO DAILY 11/06/16 11/06/16 Unknown History SUMAtriptan Succinate 50 mg PO BID PRN 11/06/16 11/06/16 Unknown History levETIRAcetam [Keppra TAB] 500 mg PO BID PRN 11/06/16 11/06/16 Unknown History traZODone 50 mg pe PO QHS PRN 11/06/16 11/06/16 Unknown History ED Physical Exam - General Limitations: No Limitations - Other Other exam information: General: Patient still postictal Head exam: Atraumatic, normocephalic Eyes exam: Normal appearance, pupils equal reactive to light ENT: Moist mucous membrane Neck exam: Normal inspection, full range of motion Respiratory exam: Clear to auscultation bilateral, no wheezes, rales, crackles Cardiovascular: Normal rate and rhythm, normal heart sounds Abdomen: Soft, nondistended, and nontender, with normal bowel sounds, no rebound, or guarding Extremity: Full range of motion normal inspection no deformity Back: Normal Inspection, full range of motion, no tenderness Neurologic: Alert but drowsy, will not speak, no facial droop patient, patient not head in response to question, weak bilateral handgrip, equal foot dorsiflexion Psychiatric: normal affect, normal mood Skin: Warm, dry, intact ED Course Vital Signs 02/11/17 02/12/17 02/12/17 23:58 00:00 00:02 Temperature 98.1 F Pulse Rate 88 80 76 Respiratory 20 Rate Blood Pressure 186/99 201/93 Blood Pressure [Right] O2 Sat by Pulse 99 100 Oximetry 02/12/17 02:00 Temperature Pulse Rate 68 Respiratory 16 Rate Blood Pressure Blood Pressure 173/83 [Right] O2 Sat by Pulse 100 Oximetry - Reevaluation(s) Reevaluation #1: 02/12/17 Patient load of IV Keppra 1000 mg. Despite greater than 5 hours. I'll observation patient remained post ictal and will not speak and is not at her baseline therefore will be admitted ED Medical Decision Making - Lab Data Result diagrams: 02/12/17 02:42 02/12/17 02:42 Lab Results 02/12/17 02/12/17 Range/Units 02:42 02:42 WBC 8.5 (4.5-11.0) K/mm3 RBC 4.59 (3.65-5.03) M/mm3 Hgb 12.7 (10.1-14.3) gm/dl Hct 37.9 (30.3-42.9) % MCV 83 (79-97) fl MCH 28 (28-32) pg MCHC 34 (30-34) % RDW 15.9 H (13.2-15.2) % Plt Count 332 (140-440) K/mm3 Lymph % (Auto) 19.2 (13.4-35.0) % [place] % (Auto) 5.3 (0.0-7.3) % Eos % (Auto) 0.2 (0.0-4.3) % Baso % (Auto) 0.6 (0.0-1.8) % Lymph # 1.6 (1.2-5.4) K/mm3 [place] # 0.4 (0.0-0.8) K/mm3 Eos # 0.0 (0.0-0.4) K/mm3 Baso # 0.1 (0.0-0.1) K/mm3 Seg Neutrophils % 74.7 H (40.0-70.0) % Seg Neutrophils # 6.3 (1.8-7.7) K/mm3 Sodium 138 (137-145) mmol/L Potassium 4.0 (3.6-5.0) mmol/L Chloride 100.4 (98-107) mmol/L Carbon Dioxide 23 (22-30) mmol/L Anion Gap 19 mmol/L BUN 11 (7-17) mg/dL Creatinine 0.8 (0.7-1.2) mg/dL Estimated GFR > 60 ml/min BUN/Creatinine Ratio 14 % Glucose 94 (65-100) mg/dL Calcium 9.9 (8.4-10.2) mg/dL Magnesium 2.20 (1.7-2.3) mg/dL - Medical Decision Making Plans admit patient to the hospital for further monitoring given her prolonged postictal state. Patient has been admitted for similar episodes in the past. Last admission patient signed out AMA prior to receiving MRI - Differential Diagnosis breakthrough seizure, noncompliance, conversion disorder Critical Care Time: No Critical care attestation.: If time is entered above; I have spent that time in minutes in the direct care of this critically ill patient, excluding procedure time. ED Disposition Clinical Impression: Seizure, Post-ictal state Disposition: OP ADMIT IP TO THIS HOSP Is pt being admited?: Yes Condition: Stable Time of Disposition: 05:24 (Dr Tellez/hosp)
[2017-02-12 03:28] LABS: Basophils % (Auto) 0.6 % (0.0-1.8); Eosinophils % (Auto) 0.2 % (0.0-4.3); Hematocrit 37.9 % (30.3-42.9); Hemoglobin 12.7 gm/dl (10.1-14.3); Mean Corpuscular HGB Conc 34 % (30-34); Mean Corpuscular Hemoglobin 28 pg (28-32); Mean Corpuscular Volume 83 fl (79-97); Platelet Count 332 K/mm3 (140-440); Red Blood Count 4.59 M/mm3 (3.65-5.03); Red Cell Distribution Width 15.9 % (13.2-15.2); White Blood Count 8.5 K/mm3 (4.5-11.0)
[2017-02-12 03:30] LABS: BUN/Creatinine Ratio 14; Blood Urea Nitrogen 11 mg/dL (7-17); Calcium 9.9 mg/dL (8.4-10.2); Carbon Dioxide 23 mmol/L (22-30); Glucose 94 mg/dL (65-100)
[2017-02-12 03:31] LABS: Anion Gap 19 mmol/L; Chloride 100.4 mmol/L (98-107); Sodium 138 mmol/L (137-145)
[2017-02-12 11:18] VITALS: BP 139/88
== END 2017-02-12 10:05 | disposition admitted as inpatient to this hospital (09) ==
LOC: ED 23:46
DX: R56.9 Unspecified convulsions (principal); I10 Essential (primary) hypertension; Z91.010 Allergy to peanuts
CPT/HCPCS: 36415; 80048; 82962; 83735; 85025; 96374; 99284; J1953

== ENCOUNTER 2017-05-30 18:50 | Inpatient (IN) | payer MEDICARE ==
[2017-05-30] MEDS ORDERED: ATIVAN IV ONE (19:32)
--- NOTE | 2017-05-30 20:57 | Emergency Department Report ---
ED Seizure HPI - General Chief Complaint: Seizure Stated Complaint: SEIZURE Time Seen by Provider: 05/30/17 19:32 Source: EMS Mode of arrival: Stretcher Limitations: No Limitations - History of Present Illness Initial Comments: Discordant a 56-year-old female brought in with status epilepticus. Per EMS and family members she had about 33 seizures. Patient is said to be compliant with her seizure medication which is Dilantin. She is actively seizing as she is escorted on the stretcher to room 23. She also has blood on her lips and apparently has bitten her lip. Complaint: seizure -: Sudden Description of Episode: tonic-clonic movement Seizure History: known seizure disorder, compliant with medication Place: home - Related Data Previous Rx's Medication Instructions Recorded Last Taken Type Ambien 5 mg PO QHS PRN #30 03/13/17 Unknown Rx Mag-Ox 400 mg PO DAILY #30 03/13/17 Unknown Rx SUMAtriptan Succinate 50 mg PO BID PRN #60 03/13/17 Unknown Rx amLODIPine [Norvasc] 5 mg PO QDAY #30 tablet 03/13/17 Unknown Rx levETIRAcetam [Keppra TAB] 500 mg PO BID PRN #60 tablet 03/13/17 Unknown Rx traZODone 50 mg pe PO QHS PRN #30 03/13/17 Unknown Rx Allergies Allergy/AdvReac Type Severity Reaction Status Date / Time peanut Allergy Unknown Verified 06/08/16 20:38 ED Review of Systems ROS: Stated complaint: SEIZURE Other details as noted in HPI Comment: Unobtainable due to pts medical conditions ED Past Medical Hx - Past Medical History Hx Hypertension: Yes (Since age 36) Hx Seizures: Yes (Dilantin) Additional medical history: LISSETH - Surgical History Past Surgical History?: Yes Additional Surgical History: LISSETH - Social History Smoking Status: Never Smoker Substance Use Type: None - Medications Home Medications: Home Medications Medication Instructions Recorded Confirmed Last Taken Type Ambien 5 mg PO QHS PRN #30 03/13/17 05/30/17 Unknown Rx Mag-Ox 400 mg PO DAILY #30 03/13/17 05/30/17 Unknown Rx SUMAtriptan Succinate 50 mg PO BID PRN #60 03/13/17 05/30/17 Unknown Rx amLODIPine [Norvasc] 5 mg PO QDAY #30 tablet 03/13/17 05/30/17 Unknown Rx levETIRAcetam [Keppra TAB] 500 mg PO BID PRN #60 tablet 03/13/17 05/30/17 Unknown Rx traZODone 50 mg pe PO QHS PRN #30 03/13/17 05/30/17 Unknown Rx ED Physical Exam - General Limitations: No Limitations General appearance: in distress - Head Head exam: Present: atraumatic, normocephalic - Eye Eye exam: Present: EOMI - ENT ENT exam: Present: mucous membranes dry, other (bright red blood on the lip bite hirsch of the lower lip swollen lip) - Neck Neck exam: Present: normal inspection, full ROM - Respiratory Respiratory exam: Present: normal lung sounds bilaterally. Absent: respiratory distress, wheezes, rales - Cardiovascular Cardiovascular Exam: Present: regular rate, normal rhythm - GI/Abdominal GI/Abdominal exam: Present: soft. Absent: tenderness, guarding, rebound - Rectal Rectal exam: Present: deferred - Extremities Exam Extremities exam: Present: normal inspection, full ROM - Back Exam Back exam: Present: normal inspection, full ROM - Neurological Exam Neurological exam: Present: altered, CN II-XII intact - Skin Skin exam: Present: warm, dry, intact (aspiration to the lip) ED Course Vital Signs 05/30/17 05/30/17 05/30/17 19:16 19:20 19:26 Temperature 97.6 F 97.6 F Pulse Rate 104 H 102 H 102 H Respiratory 24 20 20 Rate Blood Pressure 156/94 156/94 Blood Pressure 156/94 [Left] O2 Sat by Pulse 92 97 97 Oximetry 05/30/17 05/30/17 05/30/17 19:40 21:00 21:30 Temperature 97.6 F Pulse Rate 102 H 89 96 H Respiratory 18 18 12 Rate Blood Pressure 134/75 130/87 Blood Pressure 156/94 [Left] O2 Sat by Pulse 97 Oximetry 05/30/17 05/30/17 05/30/17 22:00 22:30 23:00 Temperature Pulse Rate 91 H 81 85 Respiratory 12 11 L 18 Rate Blood Pressure 121/66 126/75 143/86 Blood Pressure [Left] O2 Sat by Pulse Oximetry ED Medical Decision Making - Lab Data Result diagrams: 05/30/17 20:50 05/30/17 20:50 Critical care attestation.: If time is entered above; I have spent that time in minutes in the direct care of this critically ill patient, excluding procedure time. ED Disposition Clinical Impression: Status epilepticus, generalized convulsive Disposition: 09 OP ADMIT IP TO THIS HOSP Is pt being admited?: Yes Does the pt Need Aspirin: No Condition: Stable Referrals: TED BLOCK MD [Primary Care Provider] - 3-5 Days Time of Disposition: 00:23 (dr mohamud paged to admit the patient, case reviewed with and he will admit the patient to the hospital.)
--- NOTE | 2017-05-30 20:59 | Cat Scan Report ---
FINAL REPORT PROCEDURE: CT HEAD/BRAIN WO CON TECHNIQUE: Computerized tomography of the head was performed without contrast material. HISTORY: ams COMPARISON: March 22, 2017 FINDINGS: Skull and scalp: Normal. Paranasal sinuses: Normal. Ventricles and subarachnoid spaces: Mild dilatation. Cerebrum: There is stable encephalomalacia with diminished density and volume loss of the bilateral frontal lobes.. Cerebellum and brainstem: No evidence of hemorrhage, acute infarction or mass. Vasculature: Normal. Comments: None. IMPRESSION: Stable bilateral frontal insults with volume loss and encephalomalacia. No acute hemorrhage
[2017-05-30 21:22] LABS: Basophils % (Auto) 0.1 % (0.0-1.8); Hematocrit 38.2 % (30.3-42.9); Hemoglobin 12.5 gm/dl (10.1-14.3); Lymphocytes # (Auto) 0.8 K/mm3 (1.2-5.4); Lymphocytes % (Auto) 4.6 % (13.4-35.0); Mean Corpuscular HGB Conc 33 % (30-34); Mean Corpuscular Hemoglobin 27 pg (28-32); Mean Corpuscular Volume 83 fl (79-97); Monocytes % (Auto) 6.1 % (0.0-7.3); Platelet Count 347 K/mm3 (140-440); Red Cell Distribution Width 14.1 % (13.2-15.2)
[2017-05-30 21:56] LABS: Creatine Kinase MB 3.1 ng/mL (0.0-4.0)
[2017-05-30 22:20] LABS: Alanine Aminotransferase 10 units/L (7-56); Albumin 4.3 g/dL (3.9-5); BUN/Creatinine Ratio 12; Blood Urea Nitrogen 11 mg/dL (7-17); Calcium 9.7 mg/dL (8.4-10.2); Hemolysis Index 2
[2017-05-31] MEDS ORDERED: ATIVAN ONE (04:06)
[2017-05-31] MEDS ORDERED: DILAUDID IV PRN (04:11)
[2017-05-31] MEDS ORDERED: TYLENOL PO PRN (04:11)
[2017-05-31] MEDS ORDERED: MORPHINE IV PRN (04:11)
[2017-05-31] MEDS ORDERED: MILK OF MAGNESIA PO PRN (04:11)
[2017-05-31] MEDS ORDERED: DULCOLAX PR PRN (04:11)
[2017-05-31] MEDS ORDERED: ZOFRAN IV PRN (04:11)
[2017-05-31] MEDS ORDERED: PERCOCET 5/325 PO PRN (04:11)
--- NOTE | 2017-05-31 04:21 | Event Note ---
Date: 05/31/17 See dictated H/p in reports Status epilepticus Htn Migraine by history Hypokalemia
[2017-05-31] MEDS ORDERED: D5NS 1,000 ML IV SCH (05:00)
[2017-05-31] MEDS ORDERED: KCL 10MEQ/100ML 10 MEQ/100 ML BAG IV SCH (05:00)
--- NOTE | 2017-05-31 05:15 | History and Physical Report ---
CHIEF COMPLAINT: Multiple seizures in the last couple of hours. HISTORY OF PRESENT ILLNESS: A 56-year-old -[place] female brought in for continued seizures for the last couple of hours. The patient apparently is noncompliant with her Dilantin. She was actively seizing when she came into the emergency room. Also had bite hirsch on the lips with bleeding from her lip. The patient was given Ativan in the ER ____ seizures. She was given multiple doses of Ativan. No shortness of breath, no chest pain, no palpitations. No fever, no chills. PAST MEDICAL HISTORY: Significant for hypertension, migraine, seizure disorder. CURRENT MEDICATIONS: Ambien 5 mg p.o. at bedtime, sumatriptan 50 mg p.o. b.i.d. p.r.n. for migraine, amlodipine, Norvasc 5 mg p.o. daily, Keppra 500 mg b.i.d., trazodone 50 mg p.o. at bedtime. ALLERGIES: PEANUTS. PAST SURGICAL HISTORY: As mentioned, hypertension and seizure disorder. PAST SURGICAL HISTORY: Unknown. SOCIAL HISTORY: Does not smoke. No alcohol, no recreational drugs. FAMILY HISTORY: Hypertension. REVIEW OF SYSTEMS: The patient is currently seizing. Otherwise, review of systems is essentially negative. A 14-point review of systems done. No cough, no chest pain, no palpitations, no shortness of breath. No dysuria, no flank pain. PHYSICAL EXAMINATION: GENERAL: Middle-aged female, postictal. VITAL SIGNS: Blood pressure is 148/93, pulse is 112, respirations are 23, sats 99%-86%. HEENT: Unremarkable. Lips slightly bleeding present because of the bite hirsch. NECK: Supple, no lymphadenopathy, no thyromegaly. LUNGS: Clear to auscultation and percussion. Good air entry. CARDIOVASCULAR: S1, S2 heard. No gallop, no murmur, no rub. Apical impulse in the left fifth intercostal space and midclavicular line. ABDOMEN: Soft and benign. No hepatosplenomegaly. No guarding, no rigidity. Hernial orifices are normal. EXTREMITIES: No pedal edema. Pulses are well felt. CENTRAL NERVOUS SYSTEM: Postictal. Altered sensorium. SKIN: Normal. LABORATORY DATA: Significant for white count of 17,200, H and H is 12.5 and 38.2, platelet count is 347,000. Electrolytes are significant for potassium of 3.2. LDH is 228. CK is 219. Phenytoin is 0.8. CT of the head is negative. No acute findings. Some volume loss and encephalomalacia present. No acute hemorrhage. ASSESSMENT AND PLAN: 1. Status epilepticus. The patient was given Ativan and the seizures were controlled. The patient initiated on IV Keppra 750 mg q. 12 to be transitioned to p.o. Keppra 750 mg q. 12, p.o. Keppra to be started tomorrow night. In the meantime, the patient to get two to three doses of Keppra 750 mg IV. The patient is noncompliant. Dilantin to be discontinued. 2. Hypertension. Continue amlodipine 5 mg daily and increase the dosage if necessary. 3. Migraine headaches. Continue sumatriptan 50 mg twice a day. 4. Hypokalemia, supplemented. 5. Deep venous thrombosis prophylaxis, Lovenox 40 mg subcutaneous daily. JOB# [id number] MILDRED/NTS
[2017-05-31 08:53] VITALS: BP 169/96
[2017-05-31] MEDS ORDERED: LOVENOX SUB-Q SCH (10:00)
[2017-05-31] MEDS ORDERED: KCL 40 MEQ in NACL 0.9% 500 ML 500 ML IV NR (10:00)
[2017-05-31] MEDS ORDERED: KEPPRA 750 MG in NACL 0.9% 100 ML IV SCH (10:00)
--- NOTE | 2017-05-31 10:36 | Event Note ---
Date: 05/31/17 Patient with significant past medical history of hypertension and migraine seizure disorder was admitted through emergency room with a seizure episode this morning Patient seen and evaluated, medical records reviewed Agree with the current management, follow neurology evaluation and recommendations Plan of care discussed with the patient and answered all questions,
[2017-05-31] MEDS ORDERED: Fluarix Quad 2017-2018(36 MOS+ IM ONE (12:00)
--- NOTE | 2017-05-31 13:17 | Discharge Summary ---
Providers - Providers Date of Admission: 05/31/17 04:11 Date of discharge: 05/31/17 Attending physician: ANDREW RICHARDSON Primary care physician: TED BLOCK Hospitalization Reason for admission: seizure episode Condition: Fair Pertinent studies: CT head without contrast; stable bilateral frontal insults, volume loss and consider malaise No acute abnormality Hospital course: 56-year-old female patient with significant history of seizures admitted through emergency room early this morning but episodes of multiple seizures Patient was admitted to the hospital symptomatically managed placed on seizure precautions, managed with the antiepileptic medications No new episodes of seizures since admission Patient however wanted to leave the hospital because of a constitution party at home, risks and consequences of leaving AGAINST MEDICAL ADVICE discussed with the patient in detail, patient and family members verbalized understanding Signed papers and left the hospital AMA Disposition: DC-07 LEFT AGAINST MED ADVICE Time spent for discharge: 31 MIN Core Measure Documentation - Palliative Care Palliative Care/ Comfort Measures: Not Applicable - Core Measures Any of the following diagnoses?: history only Exam - Physical Exam Narrative exam: Left AMA - Constitutional Vitals: Temp Pulse Resp BP Pulse Ox 98.1 F 80 16 169/96 95 05/31/17 08:26 05/31/17 08:26 05/31/17 08:26 05/31/17 08:26 05/31/17 08:26 General appearance: Present: no acute distress, well-nourished - EENT Eyes: Present: PERRL, EOM intact - Neck Neck: Present: supple, normal ROM - Respiratory Respiratory effort: normal Respiratory: negative: rales, rhonchi, wheezing - Cardiovascular Rhythm: regular Heart Sounds: Present: S1 & S2 - Extremities Extremities: no ischemia, No edema Peripheral Pulses: within normal limits - Abdominal General gastrointestinal: Present: soft, non-tender, non-distended, normal bowel sounds - Integumentary Integumentary: Present: clear, warm - Musculoskeletal Musculoskeletal: strength equal bilaterally - Psychiatric Psychiatric: appropriate mood/affect, cooperative - Neurologic Neurologic: CNII-XII intact, moves all extremities Plan Activity: no driving until cleared by PCP, other (seizure precautions) Diet: regular Additional Instructions: Risks and consequences of leaving AGAINST MEDICAL ADVICE, discussed with the patient, but verbalized understanding. Advised not to drive. Advised to see neurologist, emergency room as needed. Patient verbalized understanding Follow up with: TED BLOCK MD [Primary Care Provider] - 3-5 Days GENOVEVA CLARK MD [Staff Physician] - 7 Days Forms: AMA Form
[2017-05-31] MEDS ORDERED: KEPPRA PO SCH (20:00)
== END 2017-05-31 11:25 | disposition left against medical advice (07) | DRG 101 ==
LOC: ED 18:50 → 4A 05-31 04:11
PROVIDERS: ADMIT Internal Medicine; ATTEND Internal Medicine
PROC: 3E0234Z Introduction of Serum, Toxoid and Vaccine into Muscle, Percutaneous Approach (ICD-10-PCS; principal; 2017-05-31)
DX: G40.901 Epilepsy, unspecified, not intractable, with status epilepticus (principal); I10 Essential (primary) hypertension; G43.909 Migraine, unspecified, not intractable, without status migrainosus; E87.6 Hypokalemia; Z53.21 Procedure and treatment not carried out due to patient leaving prior to being seen by health care provider; Z91.19 Patient's noncompliance with other medical treatment and regimen; Z82.49 Family history of ischemic heart disease and other diseases of the circulatory system; Z23 Encounter for immunization
CPT/HCPCS: 36415; 70450; 80053; 80185; 80320; 82140; 82550; 82553; 83615; 84484; 85025; 87400; 90686; 96374; G0480; J1650; J1953; J2060; J3480; J7040; J7042

== ENCOUNTER 2017-08-30 11:35 | Emergency (ER) | payer MEDICARE ==
[2017-08-30] MEDS ORDERED: KEPPRA 1,000 MG/NS 0.75% 100ML 1,000 MG/100 ML BAG IV ONE (12:50)
[2017-08-30] MEDS ORDERED: KEPPRA PO ONE (12:53)
--- NOTE | 2017-08-30 12:58 | Emergency Department Report ---
HPI - General Chief Complaint: Seizure Time Seen by Provider: 08/30/17 12:44 - HPI HPI: Room 18 The patient is a 57-year-old female presenting with a chief complaint seizure. The patient has a history of seizure disorder and states she is compliant with her Keppra. Family reports around 10:30 the patient had a staring spell. The patient was brought in indoors eventually had a generalized tonic-clonic seizure lasting approximately 10 minutes. Family states EMS was called and prior to EMS arriving the patient had a second seizure. The patient is currently asymptomatic and denies any complaints. The patient's last seizure before today occurred approximately 2 months ago Location: Central nervous system Duration: [See above] Quality: Generalized tonic-clonic Severity: Moderate Modifying factors: [see above] Context: [see above] Mode of transportation: [not driving] ED Past Medical Hx - Past Medical History Hx Hypertension: Yes (Since age 36) Hx Seizures: Yes Additional medical history: LISSETH - Surgical History Past Surgical History?: Yes Additional Surgical History: LISSETH - Family History Family history: no significant - Social History Smoking Status: Never Smoker Substance Use Type: None - Medications Home Medications: Home Medications Medication Instructions Recorded Confirmed Last Taken Type Ambien 5 mg PO QHS PRN #30 03/13/17 05/30/17 Unknown Rx Mag-Ox 400 mg PO DAILY #30 03/13/17 05/30/17 Unknown Rx SUMAtriptan Succinate 50 mg PO BID PRN #60 03/13/17 05/30/17 Unknown Rx amLODIPine [Norvasc] 5 mg PO QDAY #30 tablet 03/13/17 05/30/17 Unknown Rx levETIRAcetam [Keppra TAB] 500 mg PO BID PRN #60 tablet 03/13/17 05/30/17 Unknown Rx traZODone 50 mg pe PO QHS PRN #30 03/13/17 05/30/17 Unknown Rx ED Review of Systems ROS: Stated complaint: SEIZURE Other details as noted in HPI Eyes: denies: eye pain ENT: denies: throat pain Cardiovascular: denies: chest pain Gastrointestinal: denies: abdominal pain Musculoskeletal: denies: back pain Neurological: other (seizure). denies: headache Physical Exam - Physical Exam Vital Signs: Vital Signs 08/30/17 08/30/17 11:46 12:03 Temperature 98.1 F Pulse Rate 107 H Respiratory 18 Rate Blood Pressure 125/73 123/78 O2 Sat by Pulse 100 Oximetry Physical Exam: GENERAL: The patient is well-developed well-nourished female lying on stretcher not appearing to be in acute distress. [] HEENT: Normocephalic. Atraumatic. Extraocular motions are intact. Patient has moist mucous membranes. NECK: Supple. No meningitic signs are noted. There is no adenopathy noted. CHEST/LUNGS: Clear to auscultation. There is no respiratory distress noted. HEART/CARDIOVASCULAR: Regular. There is no tachycardia. There is no gallop rub or murmur. ABDOMEN: Abdomen is soft, nontender. Patient has normal bowel sounds. There is no abdominal distention. SKIN: There is no rash. There is no edema. There is no diaphoresis. NEURO: The patient is awake, alert, and oriented. The patient is cooperative. The patient has no focal neurologic deficits. The patient has normal speech. Cranial nerves II through XII grossly intact, no drift MUSCULOSKELETAL: There is no evidence of acute injury. ED Course Vital Signs 08/30/17 08/30/17 11:46 12:03 Temperature 98.1 F Pulse Rate 107 H Respiratory 18 Rate Blood Pressure 125/73 123/78 O2 Sat by Pulse 100 Oximetry - Reevaluation(s) Reevaluation #1: 08/30/17 14:37 Patient remains asymptomatic and states she is ready to go home. ED Medical Decision Making - Lab Data Result diagrams: 08/30/17 12:34 08/30/17 12:34 Laboratory Tests 08/30/17 08/30/17 08/30/17 12:06 12:34 12:34 WBC 13.7 H RBC 4.76 Hgb 13.2 Hct 40.4 MCV 85 MCH 28 MCHC 33 RDW 14.9 Plt Count 359 Lymph % (Auto) 6.0 L [place] % (Auto) 5.0 Eos % (Auto) 0.0 Baso % (Auto) 0.2 Lymph # 0.8 L [place] # 0.7 Eos # 0.0 Baso # 0.0 Seg Neutrophils % 88.8 H Seg Neutrophils # 12.1 H Sodium Potassium Chloride Carbon Dioxide Anion Gap BUN Creatinine Estimated GFR BUN/Creatinine Ratio Glucose POC Glucose 101 Calcium Magnesium 2.20 Total Creatine Kinase 08/30/17 08/30/17 12:34 12:34 WBC RBC Hgb Hct MCV MCH MCHC RDW Plt Count Lymph % (Auto) [place] % (Auto) Eos % (Auto) Baso % (Auto) Lymph # [place] # Eos # Baso # Seg Neutrophils % Seg Neutrophils # Sodium 140 Potassium 5.2 H Chloride 100.9 Carbon Dioxide 21 L Anion Gap 23 BUN 13 Creatinine 0.8 Estimated GFR > 60 BUN/Creatinine Ratio 16 Glucose 92 POC Glucose Calcium 9.4 Magnesium Total Creatine Kinase 137 H - Differential Diagnosis seizure Critical care attestation.: If time is entered above; I have spent that time in minutes in the direct care of this critically ill patient, excluding procedure time. ED Disposition Clinical Impression: Seizure Disposition: DC-01 TO HOME OR SELFCARE Is pt being admited?: No Does the pt Need Aspirin: No Condition: Stable Instructions: Epilepsy (ED) Additional Instructions: Return to the emergency department immediately should you develop worsening symptoms, fever, inability to tolerate food or liquid or any other concerns. Referrals: PRIMARY CARE, [Primary Care Provider] - 3-5 Days GENOVEVA CLARK MD [Staff Physician] - [facility] Time of Disposition: 14:38
[2017-08-30 14:33] LABS: BUN/Creatinine Ratio 16; Blood Urea Nitrogen 13 mg/dL (7-17); Calcium 9.4 mg/dL (8.4-10.2); Hemolysis Index 97
[2017-08-30 14:36] LABS: Basophils % (Auto) 0.2 % (0.0-1.8); Hematocrit 40.4 % (30.3-42.9); Hemoglobin 13.2 gm/dl (10.1-14.3); Lymphocytes # (Auto) 0.8 K/mm3 (1.2-5.4); Mean Corpuscular HGB Conc 33 % (30-34); Mean Corpuscular Hemoglobin 28 pg (28-32); Mean Corpuscular Volume 85 fl (79-97); Monocytes # (Auto) 0.7 K/mm3 (0.0-0.8); Platelet Count 359 K/mm3 (140-440); Red Blood Count 4.76 M/mm3 (3.65-5.03); Red Cell Distribution Width 14.9 % (13.2-15.2)
[2017-08-30 15:17] VITALS: BP 139/78
== END 2017-08-30 14:50 | disposition home or self-care (01) ==
LOC: ED 11:35
DX: G40.909 Epilepsy, unspecified, not intractable, without status epilepticus (principal); I10 Essential (primary) hypertension
CPT/HCPCS: 36415; 80048; 82550; 82962; 83735; 85025; 99284

== ENCOUNTER 2018-08-16 14:24 | Inpatient (IN) | payer MEDICARE ==
--- NOTE | 2018-08-16 17:08 | Emergency Department Report ---
Blank Doc - Documentation Documentation: 57 y/o female was d/c 4-5 days ago with seizures and reports continued seizures and presyncope and returns for same symptoms. no fever or chills reports taking keppra as directed. No pain Plan repeat labs No pt has another medical record number with her most recent hospital stay please review. Registration notified [id number]
[2018-08-16 17:33] LABS: Basophils % (Auto) 0.4 % (0.0-1.8); Eosinophils % (Auto) 0.3 % (0.0-4.3); Hematocrit 40.5 % (30.3-42.9); Hemoglobin 13.3 gm/dl (10.1-14.3); Lymphocytes # (Auto) 1.8 K/mm3 (1.2-5.4); Lymphocytes % (Auto) 15.9 % (13.4-35.0); Mean Corpuscular HGB Conc 33 % (30-34); Mean Corpuscular Volume 89 fl (79-97); Monocytes # (Auto) 0.8 K/mm3 (0.0-0.8); Monocytes % (Auto) 6.8 % (0.0-7.3); Platelet Count 663 K/mm3 (140-440); Red Blood Count 4.54 M/mm3 (3.65-5.03); Red Cell Distribution Width 14.9 % (13.2-15.2)
[2018-08-16 18:16] LABS: Alanine Aminotransferase 23 units/L (7-56); Albumin 4.9 g/dL (3.9-5); BUN/Creatinine Ratio 15; Blood Urea Nitrogen 12 mg/dL (7-17); Calcium 10.4 mg/dL (8.4-10.2); Hemolysis Index 12
--- NOTE | 2018-08-16 20:05 | Emergency Department Report ---
ED Seizure HPI - General Chief Complaint: Seizure Stated Complaint: SEIZURE Time Seen by Provider: 08/16/18 19:51 Source: patient Mode of arrival: Ambulatory Limitations: No Limitations - History of Present Illness Initial Comments: Patient is a 57-year-old female that presents emergency room with complaints of multiple seizures today. Family at bedside and history per family because the patient is postictal at this time. Patient at this time is A & O 2. Family states that the patient had 3 seizures prior to arrival and one more in our waiting room. Patient was in the hospital a week ago for the same reason and has not followed up with a neurologist but continues to have daily seizures and had multiple today. Family denies trauma and head injury. Family states the patient has petite mall, absence seizure and grand mal seizures. Patient denies other complaints but is hard to rely on due to the patient's mentation at this time. MD Complaint: seizure, loss of consciousness Description of Episode: loss of consciousness, tonic-clonic movement Witnessed:: Yes Trauma: No Seizure History: known seizure disorder, compliant with medication Place: home Possible Precipitating Event: none Associated Symptoms: confusion. denies: chest pain, cough, diaphoresis, fever/chills, loss of appetite, malaise, rash, shortness of breath, syncope, weakness, tongue injury, shoulder dislocation Treatments Prior to Arrival: none - Related Data Home Medications Medication Instructions Recorded Confirmed Last Taken ALPRAZolam [Xanax] 0.5 mg PO QHS 03/07/18 03/07/18 03/06/18 Previous Rx's Medication Instructions Recorded Last Taken Type SUMAtriptan Succinate 50 mg PO BID PRN #60 03/13/17 Unknown Rx traZODone 50 mg pe PO QHS PRN #30 03/13/17 03/06/18 Rx Aspirin [Aspirin BABY CHEW TAB] 81 mg PO QDAY #30 tab.chew 01/14/18 Unknown Rx AtorvaSTATin [Lipitor] 40 mg PO QHS #30 tablet 01/14/18 03/07/18 Rx Metoprolol [Lopressor TAB] 50 mg PO BID #60 tablet 01/14/18 03/07/18 Rx levETIRAcetam [Keppra TAB] 750 mg PO BID #60 tablet 01/14/18 03/07/18 Rx Allergies Allergy/AdvReac Type Severity Reaction Status Date / Time No Known Allergies Allergy Unverified 08/16/18 14:28 ED Review of Systems ROS: Stated complaint: SEIZURE Other details as noted in HPI Constitutional: denies: chills, fever Eyes: denies: eye pain, eye discharge, vision change ENT: denies: ear pain, throat pain Respiratory: denies: cough, shortness of breath, wheezing Cardiovascular: denies: chest pain, palpitations Endocrine: no symptoms reported Gastrointestinal: denies: abdominal pain, nausea, diarrhea Genitourinary: denies: urgency, dysuria, discharge Musculoskeletal: denies: back pain, joint swelling, arthralgia Skin: denies: rash, lesions Neurological: denies: headache, weakness, paresthesias Psychiatric: denies: anxiety, depression Hematological/Lymphatic: denies: easy bleeding, easy bruising ED Past Medical Hx - Past Medical History Previous Medical History?: Yes Hx Hypertension: Yes (Since age 36) Hx Congestive Heart Failure: No Hx Diabetes: No Hx Seizures: Yes Hx Asthma: No Hx COPD: No Hx HIV: No Additional medical history: LISSETH - Surgical History Past Surgical History?: No - Family History Family history: no significant - Social History Smoking Status: Never Smoker Substance Use Type: None - Medications Home Medications: Home Medications Medication Instructions Recorded Confirmed Last Taken Type SUMAtriptan Succinate 50 mg PO BID PRN #60 03/13/17 03/07/18 Unknown Rx traZODone 50 mg pe PO QHS PRN #30 03/13/17 03/07/18 03/06/18 Rx Aspirin [Aspirin BABY CHEW TAB] 81 mg PO QDAY #30 tab.chew 01/14/18 03/07/18 Unknown Rx AtorvaSTATin [Lipitor] 40 mg PO QHS #30 tablet 01/14/18 03/07/18 03/07/18 Rx Metoprolol [Lopressor TAB] 50 mg PO BID #60 tablet 01/14/18 03/07/18 03/07/18 Rx levETIRAcetam [Keppra TAB] 750 mg PO BID #60 tablet 01/14/18 03/07/18 03/07/18 Rx ALPRAZolam [Xanax] 0.5 mg PO QHS 03/07/18 03/07/18 03/06/18 History ED Physical Exam - General Limitations: No Limitations General appearance: alert, in no apparent distress - Head Head exam: Present: atraumatic, normocephalic - Eye Eye exam: Present: normal appearance - ENT ENT exam: Present: mucous membranes moist - Neck Neck exam: Present: normal inspection - Respiratory Respiratory exam: Present: normal lung sounds bilaterally. Absent: respiratory distress - Cardiovascular Cardiovascular Exam: Present: regular rate, normal rhythm. Absent: systolic murmur, diastolic murmur, rubs, gallop - GI/Abdominal GI/Abdominal exam: Present: soft, normal bowel sounds - Extremities Exam Extremities exam: Present: normal inspection - Back Exam Back exam: Present: normal inspection - Neurological Exam Neurological exam: Present: alert, altered (A&O 2), CN II-XII intact - Psychiatric Psychiatric exam: Present: normal affect, normal mood - Skin Skin exam: Present: warm, dry, intact, normal color. Absent: rash ED Course Vital Signs 08/16/18 08/16/18 08/16/18 19:44 21:25 22:10 Temperature 98.2 F 98 F Pulse Rate 84 64 104 H Respiratory 21 12 27 H Rate Blood Pressure 175/93 Blood Pressure 175/93 158/63 185/77 [Right] O2 Sat by Pulse 98 98 98 Oximetry 08/17/18 08/17/18 08/17/18 01:26 02:00 03:00 Temperature Pulse Rate 72 71 63 Respiratory 15 20 13 Rate Blood Pressure 152/73 163/87 Blood Pressure 171/64 [Right] O2 Sat by Pulse 100 99 97 Oximetry - Reevaluation(s) Reevaluation #1: Patient has had multiple staring episodes her family. Patient is still confused. 08/16/18 21:19 Reevaluation #2: Patient having seizure-like activity. Patient will be given Ativan 1 mg. Seizure TERMINATED. Patient will also be given 1 g of Keppra. 08/16/18 22:05 Discussed all results with family. Patient was admitted to the hospitalist service for multiple seizures. Family agrees to plan of care. 08/16/18 22:19 - Consultations Consultation #1: Hospitalist consult for admission. Hospitalist to admit patient. 08/16/18 22:19 ED Medical Decision Making - Lab Data Result diagrams: 08/16/18 17:15 08/16/18 17:15 - Radiology Data Radiology results: report reviewed PROCEDURE: CT head without contrast. TECHNIQUE: Computerized tomography of the head was performed without contrast material. CT DOSE LENGTH PRODUCT: 929.40 mGycm HISTORY: Seizure. COMPARISONS: None. FINDINGS: The ventricles are normal in size. There is encephalomalacia involving both frontal lobes. This is unchanged and may be secondary to previous strokes. There are no mass lesions. There is no intracranial hemorrhage. The calvarium appears intact. The mastoid air cells and paranasal sinuses are clear as far as visualized. IMPRESSION: Chronic encephalomalacia in both frontal lobes. No interval change. - Medical Decision Making She is a 57-year-old female that presents to emergency room with multiple seizures. Patient had a witnessed seizure by her family. Patient status epilepticus. Patient's labs were unremarkable. CT negative. Patient given Keppra and Ativan in the ER. - Differential Diagnosis status abilities. Seizure. Seizure disorder Critical Care Time: Yes Critical care attestation.: If time is entered above; I have spent that time in minutes in the direct care of this critically ill patient, excluding procedure time. Critical Care Time: 45 minutes ED Disposition Clinical Impression: Seizure, Seizure disorder, Status epilepticus Leukocytosis Qualifiers: Leukocytosis type: unspecified Qualified Code(s): D72.829 - Elevated white blood cell count, unspecified Disposition: DC-09 OP ADMIT IP TO THIS HOSP Is pt being admited?: Yes Does the pt Need Aspirin: No Condition: Critical Time of Disposition: 22:24
[2018-08-16 20:37] LABS: Bilirubin,Urine NEG (Negative); Blood,Urine SM (Negative); Color,Urine Yellow (Yellow); Mucus,Urine FEW /HPF; Protein,Urine <15 mg/dL mg/dL (Negative); Urobilinogen,Urine < 2.0 mg/dL (<2.0)
[2018-08-16 20:46] LABS: Amphetamine Screen,Urine PRESUMPTIVE NEGATIVE; Benzodiazepines Screen,Urine PRESUMPTIVE NEGATIVE; Cannabinoid Screen,Urine PRESUMPTIVE NEGATIVE; Cocaine Screen,Urine PRESUMPTIVE NEGATIVE; Methadone Screen,Urine PRESUMPTIVE NEGATIVE; Opiate Screen,Urine PRESUMPTIVE NEGATIVE
--- NOTE | 2018-08-16 21:46 | Cat Scan Report ---
PROCEDURE: CT head without contrast. TECHNIQUE: Computerized tomography of the head was performed without contrast material. CT DOSE LENGTH PRODUCT: 929.40 mGycm HISTORY: Seizure. COMPARISONS: None. FINDINGS: The ventricles are normal in size. There is encephalomalacia involving both frontal lobes. This is un changed and may be secondary to previous strokes. There are no mass lesions. There is no intracranial hemorrhage. The calvarium appears intact. The mastoid air cells and paranasal sinuses are clear as f ar as visualized. IMPRESSION: Chronic encephalomalacia in both frontal lobes. No interval change. This document is electronically signed by Michael Cadet MD., August 16 2018 09:44:10 PM ET
[2018-08-16] MEDS ORDERED: ATIVAN ONE (22:10)
[2018-08-16] MEDS ORDERED: ATIVAN IV ONE (22:18)
[2018-08-16] MEDS ORDERED: KEPPRA 1,000 MG/NS 0.75% 100ML 1,000 MG/100 ML BAG IV ONE ×2 (22:18→23:24)
[2018-08-16] MEDS ORDERED: TYLENOL PO PRN (23:00)
[2018-08-16] MEDS ORDERED: SODIUM CHLORIDE FLUSH SYRINGE 10 ML IV PRN (23:00)
[2018-08-16] MEDS ORDERED: ZOFRAN IV PRN (23:00)
--- NOTE | 2018-08-16 23:07 | History and Physical Report ---
<NING PHILLIPS - Last Filed: 08/16/18 23:33> History of Present Illness Date of examination: 08/16/18 Date of admission: 08/16/2018 Chief complaint: Seizure disorders History of present illness: Patient is a 57-year-old female with a PMHx of HTN, hyperlipidemia and a known history of seizure disorders who presents to the ER tonight with complaints of multiple seizures at home. Pt's family had reported multiple episodes of seizures while she was at home, at least 3 episodes. Pt was seen alone in room she is awake alert and orientated x3, Pt states that she takes Dilantin at home for seizures, she also states that she was in the ER last week for the same thing and was told to f/u with neurologist which she had not done yet. Pt admits to confusion after the seizure but she is fully awake now and able to provide medical history. She denies headache, denies recent illness, denies diaphoresis, denies fever/chills, denies tongue biting or head injury. Pt is admitted for further evaluation with neurology. Past History Past Medical History: seizures Past Surgical History: No surgical history Social history: no significant social history Family history: no significant family history Medications and Allergies Allergies Allergy/AdvReac Type Severity Reaction Status Date / Time No Known Allergies Allergy Unverified 08/16/18 14:28 Home Medications Medication Instructions Recorded Confirmed Last Taken Type SUMAtriptan Succinate 50 mg PO BID PRN #60 03/13/17 03/07/18 Unknown Rx ALPRAZolam [Xanax TAB] 0.5 mg PO QHS #10 tablet 08/17/18 Unknown Rx Aspirin [Aspirin BABY CHEW TAB] 81 mg PO QDAY #30 tab.chew 08/17/18 Unknown Rx AtorvaSTATin [Lipitor] 40 mg PO QHS #30 tablet 08/17/18 Unknown Rx Metoprolol [Lopressor TAB] 50 mg PO BID #60 tablet 08/17/18 Unknown Rx levETIRAcetam [Keppra TAB] 750 mg PO BID #60 tablet 08/17/18 Unknown Rx traZODone [Desyrel] 50 mg PO QHS PRN #30 tablet 08/17/18 Unknown Rx Active Meds: Active Medications Acetaminophen (Tylenol) 650 mg PO Q4H PRN PRN Reason: Pain MILD(1-3)/Fever >100.5/BISWAS Enoxaparin Sodium (Lovenox) 40 mg SUB-Q QDAY BREANN Ondansetron HCl (Zofran) 4 mg IV Q8H PRN PRN Reason: Nausea And Vomiting Sodium Chloride (Sodium Chloride Flush Syringe 10 Ml) 10 ml IV BID BREANN Sodium Chloride (Sodium Chloride Flush Syringe 10 Ml) 10 ml IV PRN PRN PRN Reason: LINE FLUSH Review of Systems Neurological: seizures Exam - Constitutional Vitals: Temp Pulse Resp BP Pulse Ox 98 F 104 H 27 H 185/77 98 08/16/18 22:10 08/16/18 22:10 08/16/18 22:10 08/16/18 22:10 08/16/18 22:10 General appearance: Present: no acute distress - EENT Eyes: Present: PERRL, EOM intact ENT: hearing intact - Neck Neck: Present: normal ROM - Respiratory Respiratory effort: normal Respiratory: bilateral: CTA - Cardiovascular Rhythm: regular Heart Sounds: Present: S1 & S2 Peripheral Pulses: within normal limits - Abdominal General gastrointestinal: Present: non-tender, non-distended Female genitourinary: Present: deferred - Rectal Rectal Exam: deferred - Integumentary Integumentary: Present: clear - Musculoskeletal Musculoskeletal: strength equal bilaterally - Psychiatric Psychiatric: appropriate mood/affect - Neurologic Neurologic: moves all extremities Results - Labs CBC & Chem 7: 08/16/18 17:15 08/16/18 17:15 Labs: Laboratory Last Values WBC 11.5 K/mm3 (4.5-11.0) H 08/16/18 17:15 RBC 4.54 M/mm3 (3.65-5.03) 08/16/18 17:15 Hgb 13.3 gm/dl (10.1-14.3) 08/16/18 17:15 Hct 40.5 % (30.3-42.9) 08/16/18 17:15 MCV 89 fl (79-97) 08/16/18 17:15 MCH 29 pg (28-32) 08/16/18 17:15 MCHC 33 % (30-34) 08/16/18 17:15 RDW 14.9 % (13.2-15.2) 08/16/18 17:15 Plt Count 663 K/mm3 (140-440) H 08/16/18 17:15 Lymph % (Auto) 15.9 % (13.4-35.0) 08/16/18 17:15 [place] % (Auto) 6.8 % (0.0-7.3) 08/16/18 17:15 Eos % (Auto) 0.3 % (0.0-4.3) 08/16/18 17:15 Baso % (Auto) 0.4 % (0.0-1.8) 08/16/18 17:15 Lymph # 1.8 K/mm3 (1.2-5.4) 08/16/18 17:15 [place] # 0.8 K/mm3 (0.0-0.8) 08/16/18 17:15 Eos # 0.0 K/mm3 (0.0-0.4) 08/16/18 17:15 Baso # 0.0 K/mm3 (0.0-0.1) 08/16/18 17:15 Seg Neutrophils % 76.6 % (40.0-70.0) H 08/16/18 17:15 Seg Neutrophils # 8.8 K/mm3 (1.8-7.7) H 08/16/18 17:15 Sodium 142 mmol/L (137-145) 08/16/18 17:15 Potassium 3.7 mmol/L (3.6-5.0) 08/16/18 17:15 Chloride 101.5 mmol/L (98-107) 08/16/18 17:15 Carbon Dioxide 26 mmol/L (22-30) 08/16/18 17:15 Anion Gap 18 mmol/L 08/16/18 17:15 BUN 12 mg/dL (7-17) 08/16/18 17:15 Creatinine 0.8 mg/dL (0.7-1.2) 08/16/18 17:15 Estimated GFR > 60 ml/min 08/16/18 17:15 BUN/Creatinine Ratio 15 % 08/16/18 17:15 Glucose 89 mg/dL (65-100) 08/16/18 17:15 Calcium 10.4 mg/dL (8.4-10.2) H 08/16/18 17:15 Total Bilirubin 0.30 mg/dL (0.1-1.2) 08/16/18 17:15 AST 26 units/L (5-40) 08/16/18 17:15 ALT 23 units/L (7-56) 08/16/18 17:15 Alkaline Phosphatase 79 units/L (35-129) 08/16/18 17:15 Total Protein 8.5 g/dL (6.3-8.2) H 08/16/18 17:15 Albumin 4.9 g/dL (3.9-5) 08/16/18 17:15 Albumin/Globulin Ratio 1.4 % 08/16/18 17:15 Urine Color Yellow (Yellow) 08/16/18 20:25 Urine Turbidity Clear (Clear) 08/16/18 20:25 Urine pH 7.0 (5.0-7.0) 08/16/18 20:25 Ur Specific [place] 1.010 (1.003-1.030) 08/16/18 20:25 Urine Protein <15 mg/dl mg/dL (Negative) 08/16/18 20:25 Urine Glucose (UA) Neg mg/dL (Negative) 08/16/18 20:25 Urine Ketones Neg mg/dL (Negative) 08/16/18 20:25 Urine Blood Sm (Negative) 08/16/18 20:25 Urine Nitrite Neg (Negative) 08/16/18 20:25 Urine Bilirubin Neg (Negative) 08/16/18 20:25 Urine Urobilinogen < 2.0 mg/dL (<2.0) 08/16/18 20:25 Ur Leukocyte Esterase Neg (Negative) 08/16/18 20:25 Urine WBC (Auto) 4.0 /HPF (0.0-6.0) 08/16/18 20:25 Urine RBC (Auto) 4.0 /HPF (0.0-6.0) 08/16/18 20:25 U Epithel Cells (Auto) 2.0 /HPF (0-13.0) 08/16/18 20:25 Urine Mucus Few /HPF 08/16/18 20:25 Urine Opiates Screen Presumptive negative 08/16/18 20:25 Urine Methadone Screen Presumptive negative 08/16/18 20:25 Ur Barbiturates Screen Presumptive negative 08/16/18 20:25 Ur Phencyclidine Scrn Presumptive negative 08/16/18 20:25 Ur Amphetamines Screen Presumptive negative 08/16/18 20:25 U Benzodiazepines Scrn Presumptive negative 08/16/18 20:25 Urine Cocaine Screen Presumptive negative 08/16/18 20:25 U Marijuana (THC) Screen Presumptive negative 08/16/18 20:25 Drugs of Abuse Note Disclamer 08/16/18 20:25 Assessment and Plan Assessment and plan: 1. Acute status epilepticus 2. H/o prior seizure (on Dilantin) 3. Erythrocytosis (likely reactive) 4. Dehydration 5. Hypertension 6. Hyperlipidemia Plan: Patient is admitted for seizure Continue neuro check every 4 hours Continue seizure precaution Consult neurology for evaluation in the a.m. Continue Dilantin Check Dilantin level Resume patient's home meds Didn't discuss patient's, voiced understanding Patient's condition and plan of care discussed with Dr. Tellez Advance Directives: Yes VTE prophylaxis?: Mechanical Plan of care discussed with patient/family: Yes <DEBBIE TELLEZ - Last Filed: 08/26/18 03:24> History of Present Illness Date of admission: 08/16/18 22:27 Medications and Allergies Active Meds: Active Medications Acetaminophen (Tylenol) 650 mg PO Q4H PRN PRN Reason: Pain MILD(1-3)/Fever >100.5/BISWAS Enoxaparin Sodium (Lovenox) 40 mg SUB-Q QDAY BREANN Lorazepam (Ativan) 1 mg IV Q4HR PRN PRN Reason: Seizures Ondansetron HCl (Zofran) 4 mg IV Q8H PRN PRN Reason: Nausea And Vomiting Sodium Chloride (Sodium Chloride Flush Syringe 10 Ml) 10 ml IV BID BREANN Sodium Chloride (Sodium Chloride Flush Syringe 10 Ml) 10 ml IV PRN PRN PRN Reason: LINE FLUSH Exam - Constitutional Vitals: Temp Pulse Resp BP Pulse Ox 98 F 104 H 27 H 185/77 98 08/16/18 22:10 08/16/18 22:10 08/16/18 22:10 08/16/18 22:10 08/16/18 22:10 Results - Labs CBC & Chem 7: 08/16/18 17:15 08/16/18 17:15 Labs: Laboratory Last Values WBC 11.5 K/mm3 (4.5-11.0) H 08/16/18 17:15 RBC 4.54 M/mm3 (3.65-5.03) 08/16/18 17:15 Hgb 13.3 gm/dl (10.1-14.3) 08/16/18 17:15 Hct 40.5 % (30.3-42.9) 08/16/18 17:15 MCV 89 fl (79-97) 08/16/18 17:15 MCH 29 pg (28-32) 08/16/18 17:15 MCHC 33 % (30-34) 08/16/18 17:15 RDW 14.9 % (13.2-15.2) 08/16/18 17:15 Plt Count 663 K/mm3 (140-440) H 08/16/18 17:15 Lymph % (Auto) 15.9 % (13.4-35.0) 08/16/18 17:15 [place] % (Auto) 6.8 % (0.0-7.3) 08/16/18 17:15 Eos % (Auto) 0.3 % (0.0-4.3) 08/16/18 17:15 Baso % (Auto) 0.4 % (0.0-1.8) 08/16/18 17:15 Lymph # 1.8 K/mm3 (1.2-5.4) 08/16/18 17:15 [place] # 0.8 K/mm3 (0.0-0.8) 08/16/18 17:15 Eos # 0.0 K/mm3 (0.0-0.4) 08/16/18 17:15 Baso # 0.0 K/mm3 (0.0-0.1) 08/16/18 17:15 Seg Neutrophils % 76.6 % (40.0-70.0) H 08/16/18 17:15 Seg Neutrophils # 8.8 K/mm3 (1.8-7.7) H 08/16/18 17:15 Sodium 142 mmol/L (137-145) 08/16/18 17:15 Potassium 3.7 mmol/L (3.6-5.0) 08/16/18 17:15 Chloride 101.5 mmol/L (98-107) 08/16/18 17:15 Carbon Dioxide 26 mmol/L (22-30) 08/16/18 17:15 Anion Gap 18 mmol/L 08/16/18 17:15 BUN 12 mg/dL (7-17) 08/16/18 17:15 Creatinine 0.8 mg/dL (0.7-1.2) 08/16/18 17:15 Estimated GFR > 60 ml/min 08/16/18 17:15 BUN/Creatinine Ratio 15 % 08/16/18 17:15 Glucose 89 mg/dL (65-100) 08/16/18 17:15 Calcium 10.4 mg/dL (8.4-10.2) H 08/16/18 17:15 Total Bilirubin 0.30 mg/dL (0.1-1.2) 08/16/18 17:15 AST 26 units/L (5-40) 08/16/18 17:15 ALT 23 units/L (7-56) 08/16/18 17:15 Alkaline Phosphatase 79 units/L (35-129) 08/16/18 17:15 Total Protein 8.5 g/dL (6.3-8.2) H 08/16/18 17:15 Albumin 4.9 g/dL (3.9-5) 08/16/18 17:15 Albumin/Globulin Ratio 1.4 % 08/16/18 17:15 Urine Color Yellow (Yellow) 08/16/18 20:25 Urine Turbidity Clear (Clear) 08/16/18 20:25 Urine pH 7.0 (5.0-7.0) 08/16/18 20:25 Ur Specific [place] 1.010 (1.003-1.030) 08/16/18 20:25 Urine Protein <15 mg/dl mg/dL (Negative) 08/16/18 20:25 Urine Glucose (UA) Neg mg/dL (Negative) 08/16/18 20:25 Urine Ketones Neg mg/dL (Negative) 08/16/18 20:25 Urine Blood Sm (Negative) 08/16/18 20:25 Urine Nitrite Neg (Negative) 08/16/18 20:25 Urine Bilirubin Neg (Negative) 08/16/18 20:25 Urine Urobilinogen < 2.0 mg/dL (<2.0) 08/16/18 20:25 Ur Leukocyte Esterase Neg (Negative) 08/16/18 20:25 Urine WBC (Auto) 4.0 /HPF (0.0-6.0) 08/16/18 20:25 Urine RBC (Auto) 4.0 /HPF (0.0-6.0) 08/16/18 20:25 U Epithel Cells (Auto) 2.0 /HPF (0-13.0) 08/16/18 20:25 Urine Mucus Few /HPF 08/16/18 20:25 Urine Opiates Screen Presumptive negative 08/16/18 20:25 Urine Methadone Screen Presumptive negative 08/16/18 20:25 Ur Barbiturates Screen Presumptive negative 08/16/18 20:25 Ur Phencyclidine Scrn Presumptive negative 08/16/18 20:25 Ur Amphetamines Screen Presumptive negative 08/16/18 20:25 U Benzodiazepines Scrn Presumptive negative 08/16/18 20:25 Urine Cocaine Screen Presumptive negative 08/16/18 20:25 U Marijuana (THC) Screen Presumptive negative 08/16/18 20:25 Drugs of Abuse Note Disclamer 08/16/18 20:25 Assessment and Plan Assessment and plan: 57 year old woman with history of seizure was brought to the emergency room because she had multiple seizures while in the waiting room. She was given IV Ativan and Keppra in the emergency room, had another seizure in the emergency room. Agree with plan as discussed above, in addition start IV Ativan as needed for breakthrough seizure
[2018-08-17] MEDS ORDERED: ATIVAN IV PRN (01:06)
[2018-08-17] MEDS ORDERED: DESYREL PO PRN (01:14)
[2018-08-17] MEDS ORDERED: IMITREX PO PRN (01:14)
[2018-08-17] MEDS ORDERED: LOVENOX SUB-Q SCH (10:00)
[2018-08-17] MEDS ORDERED: BABY ASPIRIN PO SCH (10:00)
[2018-08-17] MEDS ORDERED: KEPPRA PO SCH (10:00)
[2018-08-17] MEDS ORDERED: LOPRESSOR PO SCH (10:00)
[2018-08-17] MEDS ORDERED: SODIUM CHLORIDE FLUSH SYRINGE 10 ML IV SCH (10:00)
[2018-08-17] MEDS ORDERED: AFLURIA QUAD 2018-2019 SYRINGE IM ONE (12:00)
[2018-08-17 12:17] VITALS: BP 140/73
--- NOTE | 2018-08-17 16:20 | Discharge Summary ---
Providers - Providers Date of Admission: 08/16/18 22:27 Date of discharge: 08/17/18 Attending physician: HOLLAND GREEN Primary care physician: FOOD INSPECTOR Hospitalization Condition: Critical Hospital course: Patient is a 57-year-old female with a PMHx of HTN, hyperlipidemia and a known history of seizure disorders who [facility] with complaints of multiple seizures at home 1. Acute status epilepticus--resolved 2. H/o prior seizure (on Dilantin)--Change to keppra 3. Erythrocytosis (likely reactive) 4. Dehydration--Improved 5. Hypertension--Wqell controlled 6. Hyperlipidemia -cont statins Plan: D/c Home on Keppra,D/c Dilantin.D/w patient and she verbalizes understanding the reason for stopping Dilantin Advance Directives: Yes VTE prophylaxis?: Mechanical Plan of care discussed with patient/family: Yes Disposition: DC-01 TO HOME OR SELFCARE Core Measure Documentation - Palliative Care Palliative Care/ Comfort Measures: Not Applicable - Core Measures Any of the following diagnoses?: none Exam - Constitutional Vitals: Temp Pulse Resp BP Pulse Ox 98.1 F 63 20 140/73 98 08/17/18 11:23 08/17/18 11:23 08/17/18 11:23 08/17/18 11:23 08/17/18 11:23 General appearance: Present: no acute distress, well-nourished - EENT Eyes: Present: PERRL ENT: hearing intact, clear oral mucosa - Neck Neck: Present: supple, normal ROM - Respiratory Respiratory effort: normal Respiratory: bilateral: CTA - Cardiovascular Heart rate: 78 Rhythm: regular Heart Sounds: Present: S1 & S2. Absent: rub, click - Extremities Extremities: no ischemia, pulses symmetrical, No edema Peripheral Pulses: within normal limits - Abdominal General gastrointestinal: Present: soft, non-tender, non-distended, normal bowel sounds Female genitourinary: Present: normal - Rectal Rectal Exam: deferred - Integumentary Integumentary: Present: clear, warm, dry - Musculoskeletal Musculoskeletal: gait normal, strength equal bilaterally - Psychiatric Psychiatric: appropriate mood/affect, intact judgment & insight - Neurologic Neurologic: CNII-XII intact, moves all extremities - Allied Health Allied health notes reviewed: nursing, case management Plan Activity: no restrictions Diet: regular Follow up with: PRIMARY CARE,MD [Primary Care Provider] - 7 Days HERNAN RODRIGUEZ MD [Staff Physician] - 7 Days
[2018-08-17] MEDS ORDERED: XANAX PO SCH (22:00)
== END 2018-08-17 17:46 | disposition home or self-care (01) | DRG 101 ==
LOC: ED 14:24 → 3A 22:27
PROVIDERS: ADMIT Internal Medicine; ATTEND Internal Medicine
DX: G40.901 Epilepsy, unspecified, not intractable, with status epilepticus (principal); I10 Essential (primary) hypertension; D75.1 Secondary polycythemia; E86.0 Dehydration; E78.5 Hyperlipidemia, unspecified; Z79.899 Other long term (current) drug therapy; Z79.82 Long term (current) use of aspirin
CPT/HCPCS: 36415; 70450; 80048; 80053; 80185; 80307; 81001; 85025; 87116; 90686; 96372; 96374; G0378; J1650; J1953; J2060

== ENCOUNTER 2018-09-07 08:04 | Inpatient (IN) | payer MEDICARE ==
[~2018-09-07 08:04] MED LIST: AMIDATE IV ONE; QUELICIN ONE; XYLOCAINE CARDIAC IV ONE
[2018-09-07 09:38] LABS: BUN/Creatinine Ratio 12; Blood Urea Nitrogen 12 mg/dL (7-17); Calcium 8.8 mg/dL (8.4-10.2); Hemolysis Index 21
[2018-09-07] MEDS ORDERED: KEPPRA 1,000 MG in NACL 0.9% 100 ML IV ONE (10:00)
[2018-09-07] MEDS ORDERED: ATIVAN IV ONE ×2 (10:09→10:39)
[2018-09-07] MEDS ORDERED: ATIVAN ONE (10:10)
[2018-09-07] MEDS ORDERED: ATIVAN IM PRN (10:15)
[2018-09-07] MEDS ORDERED: ATIVAN IM ONE (10:20)
[2018-09-07] MEDS ORDERED: AMIDATE IV ONE (10:35)
[2018-09-07] MEDS ORDERED: QUELICIN IV ONE (10:35)
[2018-09-07] MEDS ORDERED: XYLOCAINE MPF 2% INFILTRATI ONE (10:35)
[2018-09-07 10:37] LABS: Hematocrit 34.9 % (30.3-42.9); Hemoglobin 11.7 gm/dl (10.1-14.3); Mean Corpuscular HGB Conc 33 % (30-34); Mean Corpuscular Volume 88 fl (79-97); Platelet Count 391 K/mm3 (140-440); Red Blood Count 3.98 M/mm3 (3.65-5.03)
--- NOTE | 2018-09-07 10:58 | Emergency Department Report ---
HPI - General Chief Complaint: Seizure Time Seen by Provider: 09/07/18 09:37 - HPI HPI: Room 7 The patient is a 58-year-old female presenting with chief complaint of seizure. Patient brought in by EMS for report of seizure. Patient was noticed to 2 mg of Ativan by EMS prior to arrival. Per nursing patient was sleeping upon arrival. Shortly before my evaluation the patient began having focal left-sided seizure recalcitrant to Ativan and Keppra. Subsequently, the decision to intubate using RSI preparation for continued benzodiazepine use for status epilepticus was made. Location: [facility] Duration: [See above] Quality: [See above] Severity: [See above] Modifying factors: [see above] Context: [see above] Mode of transportation: [not driving] ED Past Medical Hx - Past Medical History Hx Hypertension: Yes Hx Seizures: Yes Additional medical history: LISSETH - Surgical History Past Surgical History?: No Additional Surgical History: LISSETH - Family History Family history: no significant - Social History Smoking Status: Unknown if ever smoked - Medications Home Medications: Home Medications Medication Instructions Recorded Confirmed Last Taken Type AtorvaSTATin [Lipitor] 40 mg PO QHS #30 tablet 08/17/18 Unknown Rx traZODone [Desyrel] 50 mg PO QHS PRN #30 tablet 08/17/18 Unknown Rx Divalproex ER [DepaKOTE ER] 500 mg PO BID 09/07/18 09/07/18 Unknown History Lisinopril [Zestril] 20 mg PO QDAY 09/07/18 09/07/18 Unknown History Metoprolol [Lopressor TAB] 50 mg PO BIDWM 09/07/18 09/07/18 Unknown History levETIRAcetam [Keppra TAB] 750 mg PO BID 09/07/18 09/07/18 Unknown History ED Review of Systems ROS: Stated complaint: SEIZURE Other details as noted in HPI Comment: Unobtainable due to pts medical conditions Physical Exam - Physical Exam Vital Signs: Vital Signs 09/07/18 08:50 Temperature 98.5 F Pulse Rate 86 Respiratory 20 Rate Blood Pressure 168/83 O2 Sat by Pulse 100 Oximetry Physical Exam: GENERAL: The patient is well-developed well-nourished female lying on stretcher exhibited a focal left-sided seizure. [] HEENT: Normocephalic. Atraumatic. Leftward gaze NECK: Supple. Trachea midline CHEST/LUNGS: Clear to auscultation. There is no respiratory distress noted. HEART/CARDIOVASCULAR: Regular. There is no tachycardia. There is no gallop rub or murmur. ABDOMEN: Abdomen is soft, nontender. Patient has normal bowel sounds. There is no abdominal distention. SKIN: There is no rash. There is no edema. There is no diaphoresis. NEURO: The patient is actively seizing and does not respond MUSCULOSKELETAL: There is no evidence of acute injury. ED Course Vital Signs 09/07/18 08:50 Temperature 98.5 F Pulse Rate 86 Respiratory 20 Rate Blood Pressure 168/83 O2 Sat by Pulse 100 Oximetry - Intubation Time Out Performed: No Sedative: Etomidate Mg Given: 20 Paralytic: Succinylcholine Mg Given: 100 (patient was also administered lidocaine 100 mg IV) Laryngoscope: Birgit Size: 3 ET Tube Size: 7 Tube Secured Depth (cm): 21 Tube Secured Location: lips Tube Placement Confirmation: visualized tube passing t, equal breath sounds bi lat, no breath sounds over epi, confirmation by capnometr Patient Tolerated Procedure: well, no complications Intubation Complications: none ED Medical Decision Making - Lab Data Result diagrams: 09/07/18 08:56 09/07/18 08:56 Laboratory Tests 09/07/18 09/07/18 09/07/18 08:56 08:56 10:01 WBC 6.7 RBC 3.98 Hgb 11.7 Hct 34.9 MCV 88 MCH 29 MCHC 33 RDW 14.0 Plt Count 391 POC ABG pH POC ABG pCO2 POC ABG HCO3 POC ABG Total CO2 POC ABG O2 Sat POC ABG Base Excess FiO2 Sodium 140 Potassium 3.3 L Chloride 103.8 Carbon Dioxide 23 Anion Gap 17 BUN 12 Creatinine 1.0 Estimated GFR > 60 BUN/Creatinine Ratio 12 Glucose 107 H POC Glucose 76 Calcium 8.8 Magnesium 09/07/18 09/07/18 12:02 Unknown WBC RBC Hgb Hct MCV MCH MCHC RDW Plt Count POC ABG pH 7.451 H POC ABG pCO2 35.9 POC ABG HCO3 25.0 POC ABG Total CO2 26 POC ABG O2 Sat 100 POC ABG Base Excess 1 FiO2 100 Sodium Potassium Chloride Carbon Dioxide Anion Gap BUN Creatinine Estimated GFR BUN/Creatinine Ratio Glucose POC Glucose Calcium Magnesium 1.70 - EKG Data -: EKG Interpreted by Me EKG shows normal: sinus rhythm Rate: normal - EKG Data When compared to previous EKG there are: previous EKG unavailable Interpretation: nonspecific ST-T wave pilo (T-wave inversions in leads V2, V3) - Radiology Data Radiology results: report reviewed (CT head, chest x-ray), image reviewed (CT head, chest x-ray) interpreted by me: Chest x-ray-ET tube in appropriate position. No pneumothorax. No focal infiltrates [address] [address] Cat Scan Report Signed Patient: BI MAGALLANES MR#: [id number] : 1960 Acct:[id number] Age/Sex: 58 / F ADM Date: 09/07/18 Loc: ED Attending Dr: Ordering Physician: JANICE BARKLEY MD Date of Service: 09/07/18 Procedure(s): CT head/brain wo con Accession Number(s): [id number] cc: JANICE BARKLEY MD CT HEAD WITHOUT CONTRAST: HISTORY: Status epilepticus. TECHNIQUE: Sequential 2.5mm CT images. COMPARISON: 08/16/18. FINDINGS: Cerebral Parenchyma: Moderate sized areas of encephalomalacia are again seen in the anterior frontal lobes bilaterally. This is unchanged since the previous exam. The remaining brain parenchyma demonstrates normal attenuation. Cerebellum: Within normal limits. Brainstem: Within normal limits. Ventricles: Normal. Sella: Normal. Extra-axial spaces: Normal. Basal Cisterns: Normal. Intracranial Hemorrhage: None. Midline Shift: None. Calvarium: Normal. Sinuses: Normal. Mastoid Air Cells: Normal. Visualized Orbits: Normal. IMPRESSION: Bifrontal encephalomalacia which is un changed since 08/16/18. This is probably secondary to a previous traumatic event or less likely ischemic insults. Transcribed By: TTR Dictated By: SHYAM FISCHER JR, MD Electronically Authenticated By: SHYAM FISCHER JR, MD Signed Date/Time: 09/07/18 1237 DD/ 1235 TD/TT: 09/07/[address] [address] XRay Report Signed Patient: BI MAGALLANES MR#: [id number] : 1960 Acct:[id number] Age/Sex: 58 / F ADM Date: 09/07/18 Loc: ED Attending Dr: Ordering Physician: JANICE BARKLEY MD Date of Service: 09/07/18 Procedure(s): XR chest 1V ap Accession Number(s): [id number] cc: JANICE BARKLEY MD Fluoro Time In Minutes: AP CHEST :09/07/18 11:23 CLINICAL: Post intubation. COMPARISON:01/11/18 FINDINGS: An endotracheal tube is in satisfactory position above the rebecca. The lungs are normally expanded and clear. No pneumothorax. No other tubes or lines. Normal heart and pulmonary vessels. IMPRESSION: Satisfactory position of the endotracheal tube.No CHF or pneumonia. Transcribed By: REF Dictated By: HERNAN REID MD Electronically Authenticated By: HERNAN REID MD Signed Date/Time: 09/07/18 115 DD/ 1158 TD/TT: 09/07/18 1159 - Differential Diagnosis status epilepticus, ICH Critical care attestation.: If time is entered above; I have spent that time in minutes in the direct care of this critically ill patient, excluding procedure time. ED Disposition Clinical Impression: Status epilepticus Disposition: -09 OP ADMIT IP TO THIS HOSP Is pt being admited?: Yes Does the pt Need Aspirin: Yes Condition: Fair Referrals: T[facility] [place] MD ERIK [Primary Care Provider] - 3-5 Days Time of Disposition: 13:04 (hospitalist paged (Dr Michelle))
[2018-09-07] MEDS ORDERED: ATIVAN IV PRN (11:03)
[2018-09-07] MEDS ORDERED: VASELINE LIP THERAPY TP PRN (11:03)
[2018-09-07] MEDS ORDERED: ARTIFICIAL TEARS OPHTH OINT OU PRN (11:03)
[2018-09-07] MEDS ORDERED: ATIVAN 100 MG in NACL 0.9% 50 ML, VIAFLEX EMPTY CONTAINER 0 ML IV SCH (12:00)
--- NOTE | 2018-09-07 12:07 | XRay Report ---
AP CHEST :09/07/18 11:23 CLINICAL: Post intubation. COMPARISON:01/11/18 FINDINGS: An endotracheal tube is in satisfactory position above the rebecca. The lungs are normally expanded and clear. No pneumothorax. No other tubes or lines. Normal heart and pulmonary vessels. IMPRESSION: Satisfactory position of the endotracheal tube.No CHF or pneumonia.
--- NOTE | 2018-09-07 12:41 | Cat Scan Report ---
CT HEAD WITHOUT CONTRAST: HISTORY: Status epilepticus. TECHNIQUE: Sequential 2.5mm CT images. COMPARISON: 08/16/18. FINDINGS: Cerebral Parenchyma: Moderate sized areas of encephalomalacia are again seen in the anterior frontal lobes bilaterally. This is unchanged since the previous exam. The remaining brain parenchyma demonstrates normal attenuation. Cerebellum: Within normal limits. Brainstem: Within normal limits. Ventricles: Normal. Sella: Normal. Extra-axial spaces: Normal. Basal Cisterns: Normal. Intracranial Hemorrhage: None. Midline Shift: None. Calvarium: Normal. Sinuses: Normal. Mastoid Air Cells: Normal. Visualized Orbits: Normal. IMPRESSION: Bifrontal encephalomalacia which is unchanged since 08/16/18. This is probably secondary to a previous traumatic event or less likely ischemic insults.
[2018-09-07] MEDS ORDERED: KCL 10MEQ/100ML 30 MEQ/300 ML BAG IV ONE (16:55)
[2018-09-07] MEDS: KCL 10MEQ/100ML 10 MEQ/100 ML BAG IV SCH ×4 (17:50→21:44)
[2018-09-07] MEDS ORDERED: TYLENOL PO PRN (23:08)
[2018-09-07] MEDS ORDERED: SODIUM CHLORIDE FLUSH SYRINGE 10 ML IV PRN (23:08)
[2018-09-07] MEDS ORDERED: ZOFRAN IV PRN (23:08)
[2018-09-07] MEDS ORDERED: DILAUDID IV PRN (23:08)
--- NOTE | 2018-09-07 23:08 | Event Note ---
Date: 09/07/18 See Dictated H/p in reports Status Epilepticus Acute resp failure T2DM HTN
[2018-09-07] MEDS ORDERED: SIMPLE SYRUP FEEDTUBE PRN ×2 (23:14)
[2018-09-07] MEDS ORDERED: PANCREAZE DR 10,500 UNIT FEEDTUBE PRN (23:14)
[2018-09-07] MEDS ORDERED: SODIUM BICARBONATE FEEDTUBE PRN (23:14)
[2018-09-07] MEDS: SODIUM CHLORIDE FLUSH SYRINGE 10 ML IV SCH (23:47)
[2018-09-07] MEDS: PEPCID IV SCH (23:47)
[2018-09-07] MEDS: NACL 0.45% 1000 ML 1,000 ML IV SCH (23:47)
[2018-09-07] MEDS: KEPPRA 1,000 MG in D5W 100 ML IV SCH (23:47)
--- NOTE | 2018-09-08 01:15 | XRay Report ---
PROCEDURE: XR CHEST 1V AP HISTORY: follow up respiratory failure FINDINGS: Single frontal view of the chest was acquired and compared to the prior examination of Apri l 29. The heart is mildly large. There is an endotracheal tube with its tip in appropriate position. There is no consolidative pulmonary infiltrate. There is a Dobbhoff tube with its tip in the gastric fundus . IMPRESSION: No active disease in the chest This document is electronically signed by Tino Verdugo MD., September 08 2018 01:13:26 AM ET
--- NOTE | 2018-09-08 01:16 | XRay Report ---
PROCEDURE: XR ABDOMEN 1V AP HISTORY: Check NG tube placement FINDINGS: Supine view of the abdomen was acquired. There is a Dobbhoff tube with its tip in the gastr ic fundus. IMPRESSION: Dobbhoff tube terminates in the gastric fundus This document is electronically signed by Tino Verdugo MD., September 08 2018 01:14:00 AM ET
[2018-09-08] MEDS ORDERED: APRESOLINE IV ONE (03:55)
[2018-09-08 05:26] LABS: Basophils # (Auto) 0.1 K/mm3 (0.0-0.1); Basophils % (Auto) 0.3 % (0.0-1.8); Eosinophils # (Auto) 0.1 K/mm3 (0.0-0.4); Eosinophils % (Auto) 0.7 % (0.0-4.3); Hematocrit 35.9 % (30.3-42.9); Lymphocytes # (Auto) 2.5 K/mm3 (1.2-5.4); Lymphocytes % (Auto) 15.4 % (13.4-35.0); Mean Corpuscular HGB Conc 33 % (30-34); Mean Corpuscular Volume 88 fl (79-97); Monocytes # (Auto) 1.6 K/mm3 (0.0-0.8); Monocytes % (Auto) 9.9 % (0.0-7.3); Platelet Count 382 K/mm3 (140-440); Red Blood Count 4.09 M/mm3 (3.65-5.03)
--- NOTE | 2018-09-08 08:05 | History and Physical Report ---
CHIEF COMPLAINT: Persistent seizures. HISTORY OF PRESENT ILLNESS: A 58-year-old female who presents to the ER with seizures. The patient was given 2 mg by EMS prior to arrival. In the ER, on arrival, the patient was sleeping, but while in the ER patient started having recurrent focal left-sided seizures, not amenable to Ativan and Keppra. Because of persistent seizures in the Emergency Room for protection of airway, the patient was intubated by Dr. Ruiz the ER physician. Post intubation, the patient was kept on Keppra and Ativan. PAST MEDICAL HISTORY: Significant for hypertension, seizures. PAST SURGICAL HISTORY: None. FAMILY HISTORY: Unknown. SOCIAL HISTORY: Not known. CURRENT MEDICATIONS: Lipitor 40 mg daily, lisinopril 20 mg daily, metoprolol 50 mg b.i.d., and Keppra 750 b.i.d. Compliance issues not known. REVIEW OF SYSTEMS: Significant for recurrent seizures at home and while in the Emergency Room, hence intubated. PHYSICAL EXAMINATION: GENERAL: Middle-aged female, intubated. VITAL SIGNS: Blood pressure 168/83, temperature is 98.5, pulse 86, respirations 20, sats are 100%. HEENT: Unremarkable. Pupils are equal and reactive. NECK: Supple, no lymphadenopathy, no thyromegaly. LUNGS: Clear to auscultation and percussion. Good air entry. CARDIOVASCULAR: S1, S2 heard. No gallop, no murmur, no rub. Apical impulse in left fifth intercostal space and midclavicular line. ABDOMEN: Soft and benign. No hepatosplenomegaly. No guarding, no rigidity. Hernial orifices are normal. EXTREMITIES: Good pedal pulses. No pedal edema. CENTRAL NERVOUS SYSTEM: Intubated. Sedated. Moves all 4 extremities. SKIN: Normal. EMERGENCY DEPARTMENT COURSE: The patient was having recurrent seizures. The patient was intubated by using rapid sequence intubation. EKG sinus rhythm. Head CT shows bifrontal encephalomalacia, which is unchanged since 08/16/2018 secondary to previous traumatic event or less likely ischemic ____. Chest x-ray: No acute infiltrates. Satisfactory position of endotracheal tube. Labs are significant for normal CBC. ABG was significant for pH of 7.45, pCO2 of 35.9, bicarbonate of 25, sats are 100%. Potassium is 3.3. Sodium is 140, BUN and creatinine is 12 and 1.0. Glucose is 107. Magnesium is 1.7 which is normal. ASSESSMENT AND PLAN: 1. Status epilepticus. The patient initiated on IV Keppra and Ativan, transition to p.o. Keppra once patient is extubated. 2. Acute respiratory failure. The patient intubated for the airway protection. Sats normal. Nebulizer treatments p.r.n. Vent management. [employer]door Ill[employer]ating [employer] consult requested. 3. Hypertension. Continue antihypertensives by nasogastric tube. 4. Hyperlipidemia. We will hold statins for the time being. 5. Seizure disorder. The patient on IV Keppra, transition to p.o. Keppra and Depakote once the patient is extubated. 6. Deep venous thrombosis prophylaxis, Lovenox 40 mg subcutaneous daily. JOB# [id number] MILDRED/JR
--- NOTE | 2018-09-08 08:54 | Consultation ---
History of Present Illness Consult date: 09/08/18 Requesting physician: HOLLAND GREEN Reason for consult: other (acute hypoxemic respiratory failure, status epilepticus) History of present illness: This is a 58 YO F who presented to the Ed with repeated seizures. Pt has a history of seizures on Keppra, compliance unknown and no family at bedside. Patient was intubated in the ED. I have been consulted for critical care management. History is per the medical records, unable to get any information. Patient was seen and examined. Vitals, labs, medications, chart and imaging reviewed. - Past Medical History Hx Hypertension: Yes Hx Seizures: Yes Additional medical history: unable to obtain, orally intubated, sedated - Surgical History Past Surgical History?: No Additional Surgical History: unable to obtain, orally intubated, sedated - Family History Family history: no significant - Social History Smoking Status: Unknown if ever smoked Medications and Allergies Allergies Allergy/AdvReac Type Severity Reaction Status Date / Time No Known Allergies Allergy Unverified 08/16/18 14:28 Home Medications Medication Instructions Recorded Confirmed Last Taken Type AtorvaSTATin [Lipitor] 40 mg PO QHS #30 tablet 08/17/18 09/07/18 Unknown Rx traZODone [Desyrel] 50 mg PO QHS PRN #30 tablet 08/17/18 09/07/18 Unknown Rx Divalproex ER [DepaKOTE ER] 500 mg PO BID 09/07/18 09/07/18 Unknown History Lisinopril [Zestril] 20 mg PO QDAY 09/07/18 09/07/18 Unknown History Metoprolol [Lopressor TAB] 50 mg PO BIDWM 09/07/18 09/07/18 Unknown History levETIRAcetam [Keppra TAB] 750 mg PO BID 09/07/18 09/07/18 Unknown History Active Meds: Active Medications Acetaminophen (Tylenol) 650 mg PO Q4H PRN PRN Reason: Pain MILD(1-3)/Fever >100.5/BISWAS Lipase/Protease/Amylase (Pancreaze Dr 10,500 Unit) 1 each FEEDTUBE PRN PRN PRN Reason: For Clogged Feeding Tube Clonidine HCl (Catapres-Tts Patch) 0.1 mg TD We BREANN Enoxaparin Sodium (Lovenox) 40 mg SUB-Q QDAY@2200 BREANN Famotidine (Pepcid) 20 mg IV BID [facility] Last Admin: 09/07/18 23:47 Dose: 20 mg Documented by: Hydromorphone HCl (Dilaudid) 0.5 mg IV Q3H PRN PRN Reason: Pain , Severe (7-10) Hydrophilic Ointment (Vaseline Lip Therapy) 1 applic TP Q2HR PRN PRN Reason: Dry Lips Lorazepam 100 mg/ Sodium Chloride/ Miscellaneous Information 100 mls @ 1 mls/hr IV TITR BREANN; Protocol Last Titration: 09/08/18 00:23 Dose: 2 mg/hr, 2 mls/hr Documented by: Sodium Chloride (Nacl 0.45% 1000 Ml) 1,000 mls @ 75 mls/hr IV DIRECT [facility] Last Admin: 09/07/18 23:47 Dose: 75 mls/hr Documented by: Levetiracetam 1,000 mg/ (Dextrose) 110 mls @ 400 mls/hr IV Q12HR [facility] Last Infusion: 09/08/18 00:00 Dose: Infused Documented by: Levofloxacin/Dextrose (Levaquin 750mg/150ml) 750 mg in 150 mls @ 100 mls/hr IV Q24HR [facility]; Protocol Lorazepam (Ativan) 2 mg IV Q10MIN PRN PRN Reason: Agitation Multi-Ingred Cream/Lotion/Oil/Oint (Artificial Tears Ophth Oint) 1 applic OU Q4HR PRN PRN Reason: Dry Eye(s) Ondansetron HCl (Zofran) 4 mg IV Q8H PRN PRN Reason: Nausea And Vomiting Simple Syrup (Simple Syrup) 15 ml FEEDTUBE PRN PRN PRN Reason: Hypoglycemia Simple Syrup (Simple Syrup) 30 ml FEEDTUBE PRN PRN PRN Reason: Hypoglycemia Sodium Bicarbonate (Sodium Bicarbonate) 325 mg FEEDTUBE PRN PRN PRN Reason: For Clogged Feeding Tube Sodium Chloride (Sodium Chloride Flush Syringe 10 Ml) 10 ml IV BID [facility] Last Admin: 09/07/18 23:47 Dose: 10 ml Documented by: Sodium Chloride (Sodium Chloride Flush Syringe 10 Ml) 10 ml IV PRN PRN PRN Reason: LINE FLUSH Review of Systems ROS unobtainable: due to endotracheal tube, due to mental status Physical Examination Vital signs: Vital Signs Temp Pulse Resp BP Pulse Ox 98.5 F 86 20 168/83 100 09/07/18 08:50 09/07/18 08:50 09/07/18 08:50 09/07/18 08:50 09/07/18 08:50 General appearance: no acute distress, asleep, other (atraumatic, normocephalic) Eyes: non-icteric ENT: oropharynx moist, other (orally intubated. ETT at 22cm) Neck: supple, no lymphadenopathy, no JVD Effort: normal Ascultation: Bilateral: clear Cardiovascular: regular rate and rhythm, other (S1,S2, no murmurs, gallops or rubs) Gastrointestinal: normoactive bowel sounds, soft, non-tender, non-distended Integumentary: normal Extremities: no cyanosis, no edema, pink and warm, pulses normal, no ischemia or petechiae Musculoskeletal: no deformities pupils equal and round, unable to assess other (unable to assess on lorazepam infusion) Results - Laboratory Findings CBC and BMP: 09/09/18 04:25 09/09/18 04:25 ABG POC ABG pH 7.472 (7.35-7.45) H 09/08/18 04:24 POC ABG pCO2 30.7 (35-45) L 09/08/18 04:24 POC ABG pO2 232 (80-105) H 09/08/18 04:24 POC ABG HCO3 22.4 (22-26 mml/L) 09/08/18 04:24 POC ABG Total CO2 23 (23-27mmol/L) 09/08/18 04:24 POC ABG O2 Sat 100 09/08/18 04:24 Abnormal lab findings: Abnormal Labs 09/07/18 09/07/18 09/08/18 08:56 12:02 00:15 WBC Menard % (Auto) Menard # Seg Neutrophils % Seg Neutrophils # POC ABG pH 7.451 H POC ABG pCO2 POC ABG pO2 Potassium 3.3 L Glucose 107 H POC Glucose 126 H 09/08/18 09/08/18 04:13 04:24 WBC 16.2 H Menard % (Auto) 9.9 H Menard # 1.6 H Seg Neutrophils % 73.7 H Seg Neutrophils # 11.9 H POC ABG pH 7.472 H POC ABG pCO2 30.7 L POC ABG pO2 232 H Potassium Glucose POC Glucose - Diagnostic Findings Chest x-ray: image reviewed (ET in good position, no acute infiltrates) Assessment and Plan Acute hypoxemic respiratory failure Status epilepticus h/o HTN Leukocytosis, probably reactive Hypokalemia -Continue full MVS -Wean supplemental oxygen to keep O2 sats 88-90% -Lung protective strategies -Oxygen restrictive strategies -Daily ABGs/CXR -Follow tracheal aspirate cultures -Stop antibiotics, no clinical evidence of acute infection -VAP bundle addressed -Anti-seizure medications -Strict intake and output monitoring -Daily SAT & SBT -Sedation target for RASS 0 to -1 -Stress ulcer prophylaxis -VTE prophylaxis -Nutrition consult for tube feedings -Aspiration precautions -Accuchecks with glycemic control. Target glucose of 140-180 mg/dL -Bronchodilators with pulmonary hygiene per RT -Maintenance of sleep -wake cycle -Influenza and pneumonia vaccination per protocol -Replace potassium, keep K at 4.0 ..care plan discussed at length with RN/RT at the bedside PROGNOSIS: GUARDED CONDITION: CRITICAL CODE STATUS: FULL CODE The high probability of a clinically significant, sudden or life-threatening d eterioration of the [respiratory, neurology,] system(s) required my full and direct attention, intervention and personal management. The aggregate critical care time was [35] minutes without overlap. Time includes spent on; [x] Data Review and interpretation [x] Patient assessment and monitoring of vital signs [x] Documentation [x] Medication orders and management
[2018-09-08] MEDS: PEPCID IV SCH ×2 (09:35→21:33)
[2018-09-08] MEDS: SODIUM CHLORIDE FLUSH SYRINGE 10 ML IV SCH ×2 (09:38→21:35)
[2018-09-08] MEDS: KEPPRA 1,000 MG in D5W 100 ML IV SCH ×2 (10:00→21:33)
[2018-09-08] MEDS ORDERED: LEVAQUIN 750MG/150ML 750 MG/150 ML BAG IV SCH (10:00)
[2018-09-08] MEDS ORDERED: ZESTRIL PO SCH (11:00)
[2018-09-08] MEDS: LOPRESSOR PO SCH ×2 (11:00→21:32)
[2018-09-08] MEDS ORDERED: SIMPLE SYRUP FEEDTUBE PRN ×2 (11:04)
[2018-09-08] MEDS ORDERED: SODIUM BICARBONATE FEEDTUBE PRN (11:04)
[2018-09-08] MEDS ORDERED: PANCREAZE DR 10,500 UNIT FEEDTUBE PRN (11:04)
[2018-09-08] MEDS: NACL 0.45% 1000 ML 1,000 ML IV SCH (15:50)
[2018-09-08] MEDS: COZAAR PO SCH (16:37)
[2018-09-08] MEDS: APRESOLINE IV PRN ×2 (16:38→23:17)
[2018-09-08] MEDS: NORVASC PO SCH (16:38)
--- NOTE | 2018-09-08 17:51 | Consultation ---
History of Present Illness Consult date: 09/08/18 Chief complaint: status epilepticus History of present illness: This is a 58 YO F who presented to the Ed with repeated seizures. Pt has a his tory of seizures on Keppra, compliance unknown and no family at bedside. On my arrival pt is lying with eyes closed, intubated but not sedated. Opens eyes to voice. Not following commands but moves spontaneously. Past History Past Medical History: seizures Past Surgical History: Other (unable to obtain) Social history: other (unable to obtain) Family history: other (unable to obtain) Medications and Allergies Allergies Allergy/AdvReac Type Severity Reaction Status Date / Time No Known Allergies Allergy Unverified 08/16/18 14:28 Home Medications Medication Instructions Recorded Confirmed Last Taken Type AtorvaSTATin [Lipitor] 40 mg PO QHS #30 tablet 08/17/18 09/07/18 Unknown Rx traZODone [Desyrel] 50 mg PO QHS PRN #30 tablet 08/17/18 09/07/18 Unknown Rx Divalproex ER [DepaKOTE ER] 500 mg PO BID 09/07/18 09/07/18 Unknown History Lisinopril [Zestril] 20 mg PO QDAY 09/07/18 09/07/18 Unknown History Metoprolol [Lopressor TAB] 50 mg PO BIDWM 09/07/18 09/07/18 Unknown History levETIRAcetam [Keppra TAB] 750 mg PO BID 09/07/18 09/07/18 Unknown History Active Meds: Active Medications Acetaminophen (Tylenol) 650 mg PO Q4H PRN PRN Reason: Pain MILD(1-3)/Fever >100.5/BISWAS Amlodipine Besylate (Norvasc) 10 mg PO QDAY [facility] Last Admin: 09/08/18 16:38 Dose: 10 mg Documented by: Lipase/Protease/Amylase (Mini Epps 10,500 Unit) 1 each FEEDTUBE PRN PRN PRN Reason: For Clogged Feeding Tube Clonidine HCl (Catapres-Tts Patch) 0.1 mg TD We BREANN Enoxaparin Sodium (Lovenox) 40 mg SUB-Q QDAY@2200 [facility] Famotidine (Pepcid) 20 mg IV BID [facility] Last Admin: 09/08/18 09:35 Dose: 20 mg Documented by: Hydralazine HCl (Apresoline) 10 mg IV Q3H PRN PRN Reason: HTN >160/100 Last Admin: 09/08/18 16:38 Dose: 10 mg Documented by: Hydromorphone HCl (Dilaudid) 0.5 mg IV Q3H PRN PRN Reason: Pain , Severe (7-10) Hydrophilic Ointment (Vaseline Lip Therapy) 1 applic TP Q2HR PRN PRN Reason: Dry Lips Lorazepam 100 mg/ Sodium Chloride/ Miscellaneous Information 100 mls @ 1 mls/hr IV TITR [facility]; Protocol Last Titration: 09/08/18 00:23 Dose: 2 mg/hr, 2 mls/hr Documented by: Sodium Chloride (Nacl 0.45% 1000 Ml) 1,000 mls @ 75 mls/hr IV DIRECT [facility] Last Admin: 09/08/18 15:50 Dose: 75 mls/hr Documented by: Levetiracetam 1,000 mg/ (Dextrose) 110 mls @ 400 mls/hr IV Q12HR [facility] Last Infusion: 09/08/18 10:17 Dose: Infused Documented by: Lisinopril (Zestril) 5 mg PO QDAY [facility] Last Admin: 09/08/18 11:00 Dose: 5 mg Documented by: Lorazepam (Ativan) 2 mg IV Q10MIN PRN PRN Reason: Agitation Losartan Potassium (Cozaar) 100 mg PO QDAY [facility] Last Admin: 09/08/18 16:37 Dose: 100 mg Documented by: Metoprolol Tartrate (Lopressor) 12.5 mg PO BID [facility] Last Admin: 09/08/18 11:00 Dose: 12.5 mg Documented by: Multi-Ingred Cream/Lotion/Oil/Oint (Artificial Tears Ophth Oint) 1 applic OU Q4HR PRN PRN Reason: Dry Eye(s) Ondansetron HCl (Zofran) 4 mg IV Q8H PRN PRN Reason: Nausea And Vomiting Simple Syrup (Simple Syrup) 15 ml FEEDTUBE PRN PRN PRN Reason: Hypoglycemia Simple Syrup (Simple Syrup) 30 ml FEEDTUBE PRN PRN PRN Reason: Hypoglycemia Sodium Bicarbonate (Sodium Bicarbonate) 325 mg FEEDTUBE PRN PRN PRN Reason: For Clogged Feeding Tube Sodium Chloride (Sodium Chloride Flush Syringe 10 Ml) 10 ml IV BID [facility] Last Admin: 09/08/18 09:38 Dose: 10 ml Documented by: Sodium Chloride (Sodium Chloride Flush Syringe 10 Ml) 10 ml IV PRN PRN PRN Reason: LINE FLUSH Review of Systems ROS unobtainable: due to endotracheal tube Physical Examination - Vital Signs Vital Signs: Vital Signs Temp Pulse Resp BP Pulse Ox 98.5 F 86 20 168/83 100 09/07/18 08:50 09/07/18 08:50 09/07/18 08:50 09/07/18 08:50 09/07/18 08:50 - Constitutional General appearance: comfortable - EENT EENT: Present: PERRL - Respiratory Respiratory: Present: lungs clear - Cardiovascular Cardiovascular: Present: regular rate - Gastrointestinal Gastrointestinal: Present: normoactive bowel sounds - Neurologic Cranial nerve examination: PERRL, EOMI, face symmetric Speech examination: other (intubated) Detailed motor examination: other (moves ue spontaneously, no movement in LE) Detailed sensory examination: light touch Reflexes: 1+: ankle, bicep, knee, tricep Results - Laboratory Findings CBC and BMP: 09/08/18 04:13 09/07/18 08:56 Abnormal Lab Findings: Abnormal Labs 09/07/18 09/07/18 09/08/18 08:56 12:02 00:15 WBC [place] % (Auto) [place] # Seg Neutrophils % Seg Neutrophils # POC ABG pH 7.451 H POC ABG pCO2 POC ABG pO2 Potassium 3.3 L Glucose 107 H POC Glucose 126 H 09/08/18 09/08/18 04:13 04:24 WBC 16.2 H [place] % (Auto) 9.9 H [place] # 1.6 H Seg Neutrophils % 73.7 H Seg Neutrophils # 11.9 H POC ABG pH 7.472 H POC ABG pCO2 30.7 L POC ABG pO2 232 H Potassium Glucose POC Glucose - Diagnostic Findings Additional findings: Ct head- bifrontal encephalomalacia, stable Assessment and Plan This is a 58 YO F with status epilepticus as per history. Pt intubated , not actively seizing but should rule out non convulsive status. REcommend: EEg MRI Brain Pt's home meds say Depakote ER but no level checked. Once pt is alert would ask more questions about this and possibly convert back to Depakote if necessary. Follow up with her neurologist outpatient. Will maximize her Keppra at 1500 mg , can be adjusted down later if needed Continue care for all medical issues as you are doing Thank you for this consult.
[2018-09-08] MEDS: LOVENOX SUB-Q SCH (21:32)
--- NOTE | 2018-09-09 03:10 | XRay Report ---
PROCEDURE: XR CHEST 1V AP TECHNIQUE: A portable upright view the chest was obtained. HISTORY: follow up respiratory failure COMPARISONS: 09/08/2018 FINDINGS: The heart size and vascularity appear normal. There are no infiltrates or effusions. The ET tube and NG tube appear in good position. The bones and soft tissues otherwise are unchanged. IMPRESSION: No acute cardiopulmonary process.. This document is electronically signed by Bruno Laurent MD., Sep 09 2018 03:08:57 AM ET
[2018-09-09 05:05] LABS: Basophils % (Auto) 0.2 % (0.0-1.8); Hemoglobin 13.1 gm/dl (10.1-14.3); Lymphocytes # (Auto) 1.6 K/mm3 (1.2-5.4); Lymphocytes % (Auto) 8.7 % (13.4-35.0); Mean Corpuscular HGB Conc 34 % (30-34); Mean Corpuscular Volume 88 fl (79-97); Monocytes # (Auto) 1.8 K/mm3 (0.0-0.8); Monocytes % (Auto) 9.7 % (0.0-7.3); Platelet Count 439 K/mm3 (140-440); Red Blood Count 4.43 M/mm3 (3.65-5.03); Red Cell Distribution Width 14.6 % (13.2-15.2)
[2018-09-09 05:25] LABS: Alanine Aminotransferase 11 units/L (7-56); Albumin 3.7 g/dL (3.9-5); BUN/Creatinine Ratio 10; Blood Urea Nitrogen 9 mg/dL (7-17); Calcium 9.1 mg/dL (8.4-10.2); Hemolysis Index 10
[2018-09-09] MEDS: NACL 0.45% 1000 ML 1,000 ML IV SCH ×2 (06:10→18:18)
[2018-09-09] MEDS ORDERED: POTASSIUM CHLORIDE FEEDTUBE ONE (08:00)
[2018-09-09] MEDS: COZAAR PO SCH (09:43)
[2018-09-09] MEDS: LOPRESSOR PO SCH ×2 (09:47→21:47)
[2018-09-09] MEDS: SODIUM CHLORIDE FLUSH SYRINGE 10 ML IV SCH ×2 (09:48→21:40)
[2018-09-09] MEDS: PEPCID PO SCH ×2 (09:48→21:47)
[2018-09-09] MEDS: NORVASC PO SCH (09:49)
[2018-09-09] MEDS: KEPPRA 1,000 MG in D5W 100 ML IV SCH (09:57)
[2018-09-09] MEDS ORDERED: CATAPRES-TTS PATCH TD SCH (10:00)
--- NOTE | 2018-09-09 11:20 | Progress Note ---
Assessment and Plan Acute hypoxemic respiratory failure Status epilepticus h/o HTN Leukocytosis, probably reactive Hypokalemia SBT this morning. PSV8/6 fro 2 hours. If tolerated, get weaning parameters, NIF and RSBI. Start home metoprolol for better hemodynamics Goal to liberate from mechanical ventilatory support if she meets criteria. Discussed in detail during ICU-IDT rounds Continue all other critical care as outlined below -Continue full MVS -Wean supplemental oxygen to keep O2 sats 88-90% -Lung protective strategies -Oxygen restrictive strategies -Daily ABGs/CXR -Follow tracheal aspirate cultures -Stop antibiotics, no clinical evidence of acute infection -VAP bundle addressed -Anti-seizure medications -Strict intake and output monitoring -Daily SAT & SBT -Sedation target for RASS 0 to -1 -Stress ulcer prophylaxis -VTE prophylaxis -Nutrition consult for tube feedings -Aspiration precautions -Accuchecks with glycemic control. Target glucose of 140-180 mg/dL -Bronchodilators with pulmonary hygiene per RT -Maintenance of sleep -wake cycle -Influenza and pneumonia vaccination per protocol -Replace potassium, keep K at 4.0 ..care plan discussed at length with RN/RT at the bedside PROGNOSIS: GUARDED CONDITION: CRITICAL CODE STATUS: FULL CODE The high probability of a clinically significant, sudden or life-threatening deterioration of the [respiratory, neurology,] system(s) required my full and direct attention, intervention and personal management. The aggregate critical care time was [35] minutes without overlap. Time includes spent on; [x] Data Review and interpretation [x] Patient assessment and monitoring of vital signs [x] Documentation [x] Medication orders and management Subjective Date of service: 09/09/18 Interval history: Patient is seen today for: acute hypoxic respiraotry failure on MVS, status epilepticus, leukocytosis Seen and examined at bedside; 24hour events reviewed; nursing and respiratory care staff consulted; no adverse overnight events reported to me; no fevers, no vomiting. On minimal ventilatory support, no further seizures. Hypertensive and tachycardic this morning. Objective Vital Signs - 12hr 09/08/18 09/08/18 09/08/18 23:30 23:38 23:45 Temperature Pulse Rate 94 H 103 H 103 H Pulse Rate [ From Monitor] Respiratory 20 20 Rate Blood Pressure 135/75 135/75 135/77 O2 Sat by Pulse 100 100 Oximetry 09/09/18 09/09/1819 00:00 00:15 00:30 Temperature 98.8 F Pulse Rate 107 H 99 H 104 H Pulse Rate [ 98 H From Monitor] Respiratory 24 20 20 Rate Blood Pressure 137/83 135/82 148/81 O2 Sat by Pulse 100 100 Oximetry 09/09/18 09/09/18 09/09/18 00:45 01:00 01:15 Temperature Pulse Rate 99 H 94 H 92 H Pulse Rate [ From Monitor] Respiratory 20 20 20 Rate Blood Pressure 150/79 150/85 144/83 O2 Sat by Pulse 100 100 Oximetry 09/09/18 09/09/18 09/09/18 01:30 01:45 02:00 Temperature Pulse Rate 89 88 89 Pulse Rate [ From Monitor] Respiratory 20 20 20 Rate Blood Pressure 148/84 129/83 131/89 O2 Sat by Pulse 100 100 Oximetry 09/09/18 09/09/18 09/09/18 02:15 02:30 02:45 Temperature Pulse Rate 85 87 90 Pulse Rate [ From Monitor] Respiratory 20 20 20 Rate Blood Pressure 152/90 142/88 149/91 O2 Sat by Pulse 100 100 Oximetry 09/09/18 09/09/18 09/09/18 03:00 03:15 03:30 Temperature Pulse Rate 88 92 H 98 H Pulse Rate [ From Monitor] Respiratory 20 20 20 Rate Blood Pressure 149/94 158/94 149/84 O2 Sat by Pulse 100 100 100 Oximetry 09/09/18 09/09/18 09/09/18 03:45 04:00 04:15 Temperature 99.3 F Pulse Rate 100 H 100 H 93 H Pulse Rate [ 96 H From Monitor] Respiratory 20 20 20 Rate Blood Pressure 138/80 136/81 153/90 O2 Sat by Pulse 100 100 100 Oximetry 09/09/18 09/09/18 09/09/18 04:30 04:36 04:45 Temperature Pulse Rate 102 H 95 H 93 H Pulse Rate [ From Monitor] Respiratory 20 23 Rate Blood Pressure 153/101 153/90 142/97 O2 Sat by Pulse 100 100 Oximetry 09/09/18 09/09/18 09/09/18 05:00 05:15 05:30 Temperature Pulse Rate 89 88 93 H Pulse Rate [ From Monitor] Respiratory 20 20 20 Rate Blood Pressure 156/90 159/93 149/84 O2 Sat by Pulse 100 100 100 Oximetry 09/09/18 09/09/18 09/09/18 05:45 06:00 06:15 Temperature Pulse Rate 93 H 96 H 95 H Pulse Rate [ From Monitor] Respiratory 20 20 20 Rate Blood Pressure 143/87 128/82 128/78 O2 Sat by Pulse Oximetry 09/09/18 09/09/18 09/09/18 06:30 06:45 07:00 Temperature Pulse Rate 93 H 90 88 Pulse Rate [ From Monitor] Respiratory 20 20 20 Rate Blood Pressure 131/79 137/83 130/86 O2 Sat by Pulse 100 100 Oximetry 09/09/18 09/09/18 09/09/18 07:15 07:30 07:45 Temperature Pulse Rate 87 90 94 H Pulse Rate [ From Monitor] Respiratory 20 20 20 Rate Blood Pressure 123/90 145/86 132/85 O2 Sat by Pulse 100 100 Oximetry 09/09/18 09/09/18 09/09/18 08:00 08:07 08:15 Temperature 99.5 F Pulse Rate 92 H 100 H 101 H Pulse Rate [ 96 H From Monitor] Respiratory 20 10 L Rate Blood Pressure 145/88 145/88 136/85 O2 Sat by Pulse 100 100 100 Oximetry 09/09/18 09/09/18 09/09/18 08:30 08:45 09:00 Temperature Pulse Rate 108 H 105 H 102 H Pulse Rate [ From Monitor] Respiratory 14 15 12 Rate Blood Pressure 128/83 147/93 156/90 O2 Sat by Pulse 100 Oximetry 09/09/18 09/09/18 09/09/18 09:43 09:45 09:49 Temperature Pulse Rate 95 H 96 H 95 H Pulse Rate [ From Monitor] Respiratory Rate Blood Pressure 161/106 161/106 165/91 O2 Sat by Pulse Oximetry Constitutional: no acute distress, other (atraumatic, normocephailc, ) Eyes: non-icteric ENT: oropharynx moist, other (ETT at 22cm, SBFT in nares) Neck: supple, no lymphadenopathy Effort: normal Ascultation: Bilateral: clear Cardiovascular: other (tachycardia, S1,S2, no murmurs, gallops or rubs) Gastrointestinal: normoactive bowel sounds, soft, non-distended Integumentary: normal Extremities: no cyanosis, no edema, pink and warm, pulses normal Neurologic: pupils equal and round, other (drifts off to sleep, but obeys commands) Psychiatric: other (unable to accuraely assess) CBC and BMP: 09/09/18 04:25 09/09/18 04:25 ABG, PT/INR, D-dimer: ABG POC ABG pH 7.427 (7.35-7.45) 09/09/18 04:36 POC ABG pCO2 34.6 (35-45) L 09/09/18 04:36 POC ABG pO2 140 (80-105) H 09/09/18 04:36 POC ABG HCO3 22.8 (22-26 mml/L) 09/09/18 04:36 POC ABG Total CO2 24 (23-27mmol/L) 09/09/18 04:36 POC ABG O2 Sat 99 09/09/18 04:36 Abnormal lab findings: Abnormal Labs 09/07/18 09/07/18 09/08/18 08:56 12:02 00:15 WBC Lymph % (Auto) [place] % (Auto) [place] # Seg Neutrophils % Seg Neutrophils # POC ABG pH 7.451 H POC ABG pCO2 POC ABG pO2 Potassium 3.3 L Carbon Dioxide Glucose 107 H POC Glucose 126 H Albumin 09/08/18 09/08/18 09/08/18 04:13 04:24 23:57 WBC 16.2 H Lymph % (Auto) [place] % (Auto) 9.9 H [place] # 1.6 H Seg Neutrophils % 73.7 H Seg Neutrophils # 11.9 H POC ABG pH 7.472 H POC ABG pCO2 30.7 L POC ABG pO2 232 H Potassium Carbon Dioxide Glucose POC Glucose 110 H Albumin 09/09/18 09/09/18 09/09/18 04:25 04:25 04:36 WBC 18.8 H Lymph % (Auto) 8.7 L [place] % (Auto) 9.7 H [place] # 1.8 H Seg Neutrophils % 81.4 H Seg Neutrophils # 15.3 H POC ABG pH POC ABG pCO2 34.6 L POC ABG pO2 140 H Potassium 3.3 L Carbon Dioxide 20 L Glucose 125 H POC Glucose Albumin 3.7 L Allied health notes reviewed: RT
--- NOTE | 2018-09-09 15:23 | Progress Note ---
Assessment and Plan - Patient Problems (1) Status epilepticus Current Visit: Yes Status: Acute Plan to address problem: Better controlled Cont IV Keppra (2) Acute respiratory failure Current Visit: No Status: Acute Qualifiers: Respiratory failure complication: unspecified whether with hypoxia or hypercapnia Qualified Code(s): J96.00 - Acute respiratory failure, unspecified whether with hypoxia or hypercapnia Plan to address problem: Cont vent support Weaning in progress Probable Extubation tomorrow (3) HTN (hypertension) Current Visit: Yes Status: Chronic Qualifiers: Hypertension type: essential hypertension Qualified Code(s): I10 - Essential (primary) hypertension Plan to address problem: Cont antihypertensives (4) HLD (hyperlipidemia) Current Visit: Yes Status: Chronic Qualifiers: Hyperlipidemia type: mixed hyperlipidemia Qualified Code(s): E78.2 - Mixed hyperlipidemia Plan to address problem: Statins on Hold (5) Seizure disorder, generalized convulsive, intractable Current Visit: Yes Status: Acute Plan to address problem: Will change to po Keppra once extubated (6) DVT prophylaxis Current Visit: Yes Status: Acute Plan to address problem: On Lovenox and GI prophylaxis Subjective Date of service: 09/08/18 Principal diagnosis: Status Epilepticus Interval history: Status Epilepticus On Vent support Afebrile Objective - Exam Narrative Exam: Intubated - Constitutional Vitals: Vital Signs - 12hr 09/09/18 09/09/18 09/09/18 03:30 03:45 04:00 Temperature 99.3 F Pulse Rate 98 H 100 H 100 H Pulse Rate [ 96 H From Monitor] Respiratory 20 20 20 Rate Blood Pressure 149/84 138/80 136/81 O2 Sat by Pulse 100 100 100 Oximetry 09/09/18 09/09/18 09/09/18 04:15 04:30 04:36 Temperature Pulse Rate 93 H 102 H 95 H Pulse Rate [ From Monitor] Respiratory 20 20 Rate Blood Pressure 153/90 153/101 153/90 O2 Sat by Pulse 100 100 Oximetry 09/09/18 09/09/18 09/09/18 04:45 05:00 05:15 Temperature Pulse Rate 93 H 89 88 Pulse Rate [ From Monitor] Respiratory 23 20 20 Rate Blood Pressure 142/97 156/90 159/93 O2 Sat by Pulse 100 100 100 Oximetry 09/09/18 09/09/18 09/09/18 05:30 05:45 06:00 Temperature Pulse Rate 93 H 93 H 96 H Pulse Rate [ From Monitor] Respiratory 20 20 20 Rate Blood Pressure 149/84 143/87 128/82 O2 Sat by Pulse 100 Oximetry 09/09/18 09/09/18 09/09/18 06:15 06:30 06:45 Temperature Pulse Rate 95 H 93 H 90 Pulse Rate [ From Monitor] Respiratory 20 20 20 Rate Blood Pressure 128/78 131/79 137/83 O2 Sat by Pulse 100 Oximetry 09/09/18 09/09/18 09/09/18 07:00 07:15 07:30 Temperature Pulse Rate 88 87 90 Pulse Rate [ From Monitor] Respiratory 20 20 20 Rate Blood Pressure 130/86 123/90 145/86 O2 Sat by Pulse 100 100 Oximetry 09/09/18 09/09/18 09/09/18 07:45 08:00 08:07 Temperature 99.5 F Pulse Rate 94 H 92 H 100 H Pulse Rate [ 96 H From Monitor] Respiratory 20 20 Rate Blood Pressure 132/85 145/88 145/88 O2 Sat by Pulse 100 100 100 Oximetry 09/09/18 09/09/18 09/09/18 08:15 08:30 08:45 Temperature Pulse Rate 101 H 108 H 105 H Pulse Rate [ From Monitor] Respiratory 10 L 14 15 Rate Blood Pressure 136/85 128/83 147/93 O2 Sat by Pulse 100 100 Oximetry 09/09/18 09/09/18 09/09/18 09:00 09:15 09:30 Temperature Pulse Rate 102 H 104 H 101 H Pulse Rate [ From Monitor] Respiratory 12 21 15 Rate Blood Pressure 156/90 165/99 161/106 O2 Sat by Pulse 100 100 Oximetry 09/09/18 09/09/18 09/09/18 09:43 09:45 09:49 Temperature Pulse Rate 95 H 94 H 95 H Pulse Rate [ From Monitor] Respiratory 12 Rate Blood Pressure 161/106 165/91 165/91 O2 Sat by Pulse 100 Oximetry 09/09/18 09/09/18 09/09/18 10:00 10:15 10:30 Temperature Pulse Rate 91 H 90 87 Pulse Rate [ From Monitor] Respiratory 17 11 L 13 Rate Blood Pressure 169/83 156/87 146/86 O2 Sat by Pulse 100 100 100 Oximetry 09/09/18 09/09/18 09/09/18 10:45 11:00 11:15 Temperature Pulse Rate 84 89 84 Pulse Rate [ From Monitor] Respiratory 14 20 24 Rate Blood Pressure 158/87 158/87 162/85 O2 Sat by Pulse 100 100 100 Oximetry 09/09/18 09/09/18 09/09/18 11:23 11:30 11:45 Temperature Pulse Rate 85 87 84 Pulse Rate [ From Monitor] Respiratory 24 22 Rate Blood Pressure 162/85 157/83 146/85 O2 Sat by Pulse 100 100 100 Oximetry 09/09/18 09/09/18 09/09/18 12:00 12:15 12:22 Temperature 100.3 F H Pulse Rate 88 91 H Pulse Rate [ 92 H From Monitor] Respiratory 24 28 H Rate Blood Pressure 135/83 154/86 O2 Sat by Pulse 100 100 100 Oximetry 09/09/18 09/09/18 09/09/18 12:30 12:45 13:00 Temperature Pulse Rate 89 94 H 96 H Pulse Rate [ From Monitor] Respiratory 27 H 29 H 27 H Rate Blood Pressure 145/86 144/86 136/85 O2 Sat by Pulse 100 Oximetry 09/09/18 09/09/18 09/09/18 13:15 13:30 13:45 Temperature Pulse Rate 108 H 96 H 103 H Pulse Rate [ From Monitor] Respiratory 30 H 26 H 38 H Rate Blood Pressure 129/80 136/84 139/87 O2 Sat by Pulse 99 100 Oximetry 09/09/18 14:00 Temperature Pulse Rate 102 H Pulse Rate [ From Monitor] Respiratory 28 H Rate Blood Pressure 146/86 O2 Sat by Pulse Oximetry General appearance: Present: mild distress - Breasts Breasts: deferred - Cardiovascular Heart rate: 78 Rhythm: regular Extremities: no ischemia - Gastrointestinal General gastrointestinal: Present: deferred Rectal Exam: deferred - Genitourinary Female genitourinary: deferred - Musculoskeletal Musculoskeletal: generalized weakness - Psychiatric Psychiatric: other (Intubated) - Allied health notes Allied health notes reviewed: nursing, case management - Labs CBC & Chem 7: 09/09/18 04:25 09/09/18 04:25 Labs: Abnormal lab results 09/08/18 09/09/18 09/09/18 Range/Units 23:57 04:25 04:25 WBC 18.8 H (4.5-11.0) K/mm3 Lymph % (Auto) 8.7 L (13.4-35.0) % [place] % (Auto) 9.7 H (0.0-7.3) % [place] # 1.8 H (0.0-0.8) K/mm3 Seg Neutrophils % 81.4 H (40.0-70.0) % Seg Neutrophils # 15.3 H (1.8-7.7) K/mm3 POC ABG pCO2 (35-45) POC ABG pO2 (80-105) Potassium 3.3 L (3.6-5.0) mmol/L Carbon Dioxide 20 L (22-30) mmol/L Glucose 125 H (65-100) mg/dL POC Glucose 110 H (70-105) Albumin 3.7 L (3.9-5) g/dL 09/09/18 09/09/18 Range/Units 04:36 11:45 WBC (4.5-11.0) K/mm3 Lymph % (Auto) (13.4-35.0) % [place] % (Auto) (0.0-7.3) % [place] # (0.0-0.8) K/mm3 Seg Neutrophils % (40.0-70.0) % Seg Neutrophils # (1.8-7.7) K/mm3 POC ABG pCO2 34.6 L (35-45) POC ABG pO2 140 H (80-105) Potassium (3.6-5.0) mmol/L Carbon Dioxide (22-30) mmol/L Glucose (65-100) mg/dL POC Glucose 126 H (70-105) Albumin (3.9-5) g/dL
--- NOTE | 2018-09-09 15:48 | Progress Note ---
Assessment and Plan - Patient Problems (1) Status epilepticus Current Visit: Yes Status: Acute Plan to address problem: Better controlled Cont IV Keppra Extubated (2) Acute respiratory failure Current Visit: No Status: Acute Qualifiers: Respiratory failure complication: unspecified whether with hypoxia or hypercapnia Qualified Code(s): J96.00 - Acute respiratory failure, unspecified whether with hypoxia or hypercapnia Plan to address problem: Extubated (3) HTN (hypertension) Current Visit: Yes Status: Chronic Qualifiers: Hypertension type: essential hypertension Qualified Code(s): I10 - Essential (primary) hypertension Plan to address problem: Cont antihypertensives (4) HLD (hyperlipidemia) Current Visit: Yes Status: Chronic Qualifiers: Hyperlipidemia type: mixed hyperlipidemia Qualified Code(s): E78.2 - Mixed hyperlipidemia Plan to address problem: Statins on Hold (5) Seizure disorder, generalized convulsive, intractable Current Visit: Yes Status: Acute Plan to address problem: Will change to po Keppra once extubated (6) DVT prophylaxis Current Visit: Yes Status: Acute Plan to address problem: On Lovenox and GI prophylaxis Subjective Date of service: 09/09/18 Principal diagnosis: Status Epilepticus Interval history: Status Epilepticus Extubated Objective - Exam Narrative Exam: Intubated - Constitutional Vitals: Vital Signs - 12hr 09/09/18 09/09/18 09/09/18 03:45 04:00 04:15 Temperature 99.3 F Pulse Rate 100 H 100 H 93 H Pulse Rate [ 96 H From Monitor] Respiratory 20 20 20 Rate Blood Pressure 138/80 136/81 153/90 O2 Sat by Pulse 100 100 100 Oximetry 09/09/18 09/09/18 09/09/18 04:30 04:36 04:45 Temperature Pulse Rate 102 H 95 H 93 H Pulse Rate [ From Monitor] Respiratory 20 23 Rate Blood Pressure 153/101 153/90 142/97 O2 Sat by Pulse 100 100 Oximetry 09/09/18 09/09/18 09/09/18 05:00 05:15 05:30 Temperature Pulse Rate 89 88 93 H Pulse Rate [ From Monitor] Respiratory 20 20 20 Rate Blood Pressure 156/90 159/93 149/84 O2 Sat by Pulse 100 100 100 Oximetry 09/09/18 09/09/18 09/09/18 05:45 06:00 06:15 Temperature Pulse Rate 93 H 96 H 95 H Pulse Rate [ From Monitor] Respiratory 20 20 20 Rate Blood Pressure 143/87 128/82 128/78 O2 Sat by Pulse Oximetry 09/09/18 09/09/18 09/09/18 06:30 06:45 07:00 Temperature Pulse Rate 93 H 90 88 Pulse Rate [ From Monitor] Respiratory 20 20 20 Rate Blood Pressure 131/79 137/83 130/86 O2 Sat by Pulse 100 100 Oximetry 09/09/18 09/09/18 09/09/18 07:15 07:30 07:45 Temperature Pulse Rate 87 90 94 H Pulse Rate [ From Monitor] Respiratory 20 20 20 Rate Blood Pressure 123/90 145/86 132/85 O2 Sat by Pulse 100 100 Oximetry 09/09/18 09/09/18 09/09/18 08:00 08:07 08:15 Temperature 99.5 F Pulse Rate 92 H 100 H 101 H Pulse Rate [ 96 H From Monitor] Respiratory 20 10 L Rate Blood Pressure 145/88 145/88 136/85 O2 Sat by Pulse 100 100 100 Oximetry 09/09/18 09/09/18 09/09/18 08:30 08:45 09:00 Temperature Pulse Rate 108 H 105 H 102 H Pulse Rate [ From Monitor] Respiratory 14 15 12 Rate Blood Pressure 128/83 147/93 156/90 O2 Sat by Pulse 100 Oximetry 09/09/18 09/09/18 09/09/18 09:15 09:30 09:43 Temperature Pulse Rate 104 H 101 H 95 H Pulse Rate [ From Monitor] Respiratory 21 15 Rate Blood Pressure 165/99 161/106 161/106 O2 Sat by Pulse 100 100 Oximetry 09/09/18 09/09/18 09/09/18 09:45 09:49 10:00 Temperature Pulse Rate 94 H 95 H 91 H Pulse Rate [ From Monitor] Respiratory 12 17 Rate Blood Pressure 165/91 165/91 169/83 O2 Sat by Pulse 100 100 Oximetry 09/09/18 09/09/18 09/09/18 10:15 10:30 10:45 Temperature Pulse Rate 90 87 84 Pulse Rate [ From Monitor] Respiratory 11 L 13 14 Rate Blood Pressure 156/87 146/86 158/87 O2 Sat by Pulse 100 100 100 Oximetry 09/09/18 09/09/18 09/09/18 11:00 11:15 11:23 Temperature Pulse Rate 89 84 85 Pulse Rate [ From Monitor] Respiratory 20 24 Rate Blood Pressure 158/87 162/85 162/85 O2 Sat by Pulse 100 100 100 Oximetry 09/09/18 09/09/18 09/09/18 11:30 11:45 12:00 Temperature 100.3 F H Pulse Rate 87 84 88 Pulse Rate [ 92 H From Monitor] Respiratory 24 22 24 Rate Blood Pressure 157/83 146/85 135/83 O2 Sat by Pulse 100 100 100 Oximetry 09/09/18 09/09/18 09/09/18 12:15 12:22 12:30 Temperature Pulse Rate 91 H 89 Pulse Rate [ From Monitor] Respiratory 28 H 27 H Rate Blood Pressure 154/86 145/86 O2 Sat by Pulse 100 100 100 Oximetry 09/09/18 09/09/18 09/09/18 12:45 13:00 13:15 Temperature Pulse Rate 94 H 96 H 108 H Pulse Rate [ From Monitor] Respiratory 29 H 27 H 30 H Rate Blood Pressure 144/86 136/85 129/80 O2 Sat by Pulse Oximetry 09/09/18 09/09/18 09/09/18 13:30 13:45 14:00 Temperature Pulse Rate 96 H 103 H 102 H Pulse Rate [ From Monitor] Respiratory 26 H 38 H 28 H Rate Blood Pressure 136/84 139/87 146/86 O2 Sat by Pulse 99 100 Oximetry 09/09/18 09/09/18 09/09/18 14:15 14:30 14:45 Temperature Pulse Rate 96 H 94 H 102 H Pulse Rate [ From Monitor] Respiratory 26 H 26 H 31 H Rate Blood Pressure 146/87 138/86 150/92 O2 Sat by Pulse 100 Oximetry 09/09/18 09/09/18 15:00 15:15 Temperature Pulse Rate 96 H 93 H Pulse Rate [ From Monitor] Respiratory 29 H 25 H Rate Blood Pressure 152/93 150/80 O2 Sat by Pulse 100 Oximetry General appearance: Present: no acute distress, well-nourished - EENT Eyes: PERRL, EOM intact ENT: hearing intact, clear oral mucosa Ears: bilateral: normal - Neck Neck: supple, normal ROM - Respiratory Respiratory effort: normal Respiratory: bilateral: CTA - Breasts Breasts: normal - Cardiovascular Heart rate: 78 Rhythm: regular Heart Sounds: Present: S1 & S2. Absent: gallop, rub Extremities: no ischemia, pulses intact, No edema, normal color, Full ROM - Gastrointestinal General gastrointestinal: Present: soft, non-tender, non-distended, normal bowel sounds Rectal Exam: deferred - Genitourinary Female genitourinary: normal - Integumentary Integumentary: clear, warm, dry - Musculoskeletal Musculoskeletal: generalized weakness - Neurologic Neurologic: moves all extremities - Allied health notes Allied health notes reviewed: nursing, case management - Labs CBC & Chem 7: 09/09/18 04:25 09/09/18 04:25 Labs: Abnormal lab results 09/08/18 09/09/18 09/09/18 Range/Units 23:57 04:25 04:25 WBC 18.8 H (4.5-11.0) K/mm3 Lymph % (Auto) 8.7 L (13.4-35.0) % [place] % (Auto) 9.7 H (0.0-7.3) % [place] # 1.8 H (0.0-0.8) K/mm3 Seg Neutrophils % 81.4 H (40.0-70.0) % Seg Neutrophils # 15.3 H (1.8-7.7) K/mm3 POC ABG pCO2 (35-45) POC ABG pO2 (80-105) Potassium 3.3 L (3.6-5.0) mmol/L Carbon Dioxide 20 L (22-30) mmol/L Glucose 125 H (65-100) mg/dL POC Glucose 110 H (70-105) Albumin 3.7 L (3.9-5) g/dL 09/09/18 09/09/18 Range/Units 04:36 11:45 WBC (4.5-11.0) K/mm3 Lymph % (Auto) (13.4-35.0) % [place] % (Auto) (0.0-7.3) % [place] # (0.0-0.8) K/mm3 Seg Neutrophils % (40.0-70.0) % Seg Neutrophils # (1.8-7.7) K/mm3 POC ABG pCO2 34.6 L (35-45) POC ABG pO2 140 H (80-105) Potassium (3.6-5.0) mmol/L Carbon Dioxide (22-30) mmol/L Glucose (65-100) mg/dL POC Glucose 126 H (70-105) Albumin (3.9-5) g/dL
[2018-09-09] MEDS: KEPPRA 1,500 MG in D5W 100 ML IV SCH (21:39)
[2018-09-09] MEDS: LOVENOX SUB-Q SCH (21:47)
--- NOTE | 2018-09-09 22:50 | XRay Report ---
PROCEDURE: XR CHEST 1V AP TECHNIQUE: Single AP chest HISTORY: Cough COMPARISONS: Comparison is dated September 09, 2018 FINDINGS: ET tube has been removed There is feeding tube again noted tip overlying the fundus of the stomach. No confluent pulmonary infiltrate identified. No pleural fluid collection seen. Pulmonary vasculature is unremarkable. Cardiac and mediastinal contours are unremarkable. IMPRESSION: Feeding tube tip overlying the body of the stomach No acute pulmonary findings. This document is electronically signed by Ortiz Rock MD., Sep 09 2018 10:48:46 PM ET
[2018-09-10] MEDS ORDERED: VANCOMYCIN PHARMACY TO DOSE IV SCH (03:21)
[2018-09-10] MEDS ORDERED: VANCOMYCIN 1,250 MG in NACL 0.9% 250ML 250 ML IV ONE (04:00)
[2018-09-10] MEDS: MAXIPIME/NS 2 GM/100 ML 2 GM/100 ML BAG IV SCH ×3 (04:20→21:53)
--- NOTE | 2018-09-10 08:13 | XRay Report ---
AP CHEST :09/10/18 CLINICAL: Followup respiratory failure. COMPARISON:09/09/18 FINDINGS: Normal heart and pulmonary vasculature. The lungs are normally expanded and clear. The feeding tube has been removed. No tubes or lines. IMPRESSION: Normal chest.
[2018-09-10] MEDS: NORVASC PO SCH (10:13)
[2018-09-10] MEDS: LOPRESSOR PO SCH ×2 (10:13→21:46)
[2018-09-10] MEDS: PEPCID PO SCH ×2 (10:14→21:46)
[2018-09-10] MEDS: SODIUM CHLORIDE FLUSH SYRINGE 10 ML IV SCH ×2 (10:14→22:05)
[2018-09-10] MEDS: COZAAR PO SCH (10:14)
[2018-09-10] MEDS: KEPPRA 1,500 MG in D5W 100 ML IV SCH (10:32)
[2018-09-10] MEDS: NACL 0.45% 1000 ML 1,000 ML IV SCH (10:35)
--- NOTE | 2018-09-10 15:08 | Progress Note ---
Assessment and Plan Acute hypoxemic respiratory failure Status epilepticus h/o HTN Leukocytosis, probably reactive Hypokalemia - follow MRI report - continue to wean supplemental oxygen to keep O2 sats 88-90% - follow clinically off AB's - continue Anti-seizure medications (Keppra) - continue GI & VTE prophylaxis - continue aspiration precautions - Accuchecks q6h with glycemic control per SSI for target glucose of 140-180 mg/dL - continue bronchodilators with pulmonary hygiene per RT - continue maintenance of sleep -wake cycle - Influenza and pneumonia vaccination per protocol - Replace potassium, keep K at 4.0 CODE STATUS: FULL CODE Subjective Date of service: 09/10/18 Principal diagnosis: Acute hypoxemic respiraotry failure; Status epilepticus; leukocytosis Interval history: Patient is seen today for: Acute hypoxemic respiraotry failure; status epilepticus; leukocytosis Seen and examined at bedside; 24hour events reviewed; nursing and respiratory care staff consulted; no adverse overnight events reported to me; resting peacefully in bed; feels better; no recurrent seizures; No N/V/F/C; awaiting MRI Objective Vital Signs - 12hr 09/10/18 09/10/18 05:17 07:42 Temperature 98.8 F 98.7 F Pulse Rate 78 83 Respiratory 28 H 22 Rate Blood Pressure 112/66 112/71 O2 Sat by Pulse 99 98 Oximetry Constitutional: no acute distress, other (atraumatic, normocephailc, ) Eyes: non-icteric ENT: oropharynx moist, other (ETT at 22cm, SBFT in nares) Neck: supple, no lymphadenopathy Effort: normal Ascultation: Bilateral: clear Cardiovascular: regular rate and rhythm, other (tachycardia, S1,S2, no murmurs, gallops or rubs) Gastrointestinal: normoactive bowel sounds, soft, non-distended Integumentary: normal Extremities: no cyanosis, no edema, pink and warm, pulses normal Neurologic: normal mental status, non-focal exam (grossly), pupils equal and round, other (somnolent at times) Psychiatric: mood appropriate, affect normal CBC and BMP: 09/11/18 06:07 09/09/18 04:25 ABG, PT/INR, D-dimer: ABG POC ABG pH 7.427 (7.35-7.45) 09/09/18 04:36 POC ABG pCO2 34.6 (35-45) L 09/09/18 04:36 POC ABG pO2 140 (80-105) H 09/09/18 04:36 POC ABG HCO3 22.8 (22-26 mml/L) 09/09/18 04:36 POC ABG Total CO2 24 (23-27mmol/L) 09/09/18 04:36 POC ABG O2 Sat 99 09/09/18 04:36 Abnormal lab findings: Abnormal Labs 09/07/18 09/07/18 09/08/18 08:56 12:02 00:15 WBC Lymph % (Auto) [place] % (Auto) [place] # Seg Neutrophils % Seg Neutrophils # POC ABG pH 7.451 H POC ABG pCO2 POC ABG pO2 Potassium 3.3 L Carbon Dioxide Glucose 107 H POC Glucose 126 H Albumin 09/08/18 09/08/18 09/08/18 04:13 04:24 23:57 WBC 16.2 H Lymph % (Auto) [place] % (Auto) 9.9 H [place] # 1.6 H Seg Neutrophils % 73.7 H Seg Neutrophils # 11.9 H POC ABG pH 7.472 H POC ABG pCO2 30.7 L POC ABG pO2 232 H Potassium Carbon Dioxide Glucose POC Glucose 110 H Albumin 09/09/18 09/09/18 09/09/18 04:25 04:25 04:36 WBC 18.8 H Lymph % (Auto) 8.7 L [place] % (Auto) 9.7 H [place] # 1.8 H Seg Neutrophils % 81.4 H Seg Neutrophils # 15.3 H POC ABG pH POC ABG pCO2 34.6 L POC ABG pO2 140 H Potassium 3.3 L Carbon Dioxide 20 L Glucose 125 H POC Glucose Albumin 3.7 L 09/09/18 11:45 WBC Lymph % (Auto) [place] % (Auto) [place] # Seg Neutrophils % Seg Neutrophils # POC ABG pH POC ABG pCO2 POC ABG pO2 Potassium Carbon Dioxide Glucose POC Glucose 126 H Albumin Allied health notes reviewed: nursing
[2018-09-10] MEDS: VANCOMYCIN 750 MG in NACL 0.9% 250ML 250 ML IV SCH (18:09)
--- NOTE | 2018-09-10 18:55 | Magnetic Resonance Report ---
PROCEDURE: MR BRAIN WO CON TECHNIQUE: MRI brain without contrast HISTORY: status epilepticus COMPARISONS: Correlated with prior CT of August 16, 2018 and September 07 2018 FINDINGS: There is volume loss and increased T2 signal both frontal lobes appears similar to the prior CT. Lupe nena of the brain demonstrates normal signal intensity. No evidence for midline shift or mass effect . No evidence for acute intra or extra-axial hemorrhage. Some motion artifact is noted during acquisi tion. IMPRESSION: Encephalomalacia involving both frontal lobes which appears stable since prior CTs. Could be posttrau matic or ischemic in nature No additional abnormality identified. Some motion artifact is noted.. This document is electronically signed by Ortiz Rock MD., Sep 10 2018 06:53:21 PM ET
--- NOTE | 2018-09-10 21:18 | Progress Note ---
Assessment and Plan - Patient Problems (1) Status epilepticus Current Visit: Yes Status: Acute Plan to address problem: No further seizure. Continue Keppra. Plan which I think is a good one is to obtain a MRI to ensure nothing new happened. Patient has known seizure disorder now stabilized with Keppra. Problem has been to obtain permission from family member. Once MRI has proven negative will discharge home. (2) HLD (hyperlipidemia) Current Visit: Yes Status: Chronic Qualifiers: Hyperlipidemia type: mixed hyperlipidemia Qualified Code(s): E78.2 - Mixed hyperlipidemia Plan to address problem: Continue statin. (3) HTN (hypertension) Current Visit: Yes Status: Chronic Qualifiers: Hypertension type: essential hypertension Qualified Code(s): I10 - Essential (primary) hypertension Plan to address problem: At present has optimal control blood pressure (4) Acute respiratory failure Current Visit: No Status: Acute Qualifiers: Respiratory failure complication: unspecified whether with hypoxia or hypercapnia Qualified Code(s): J96.00 - Acute respiratory failure, unspecified whether with hypoxia or hypercapnia Plan to address problem: Patient extubated. Satting 100%. Not requiring O2 no wheezing chest clear. History Interval history: Patient today at baseline alert. Wondering when she can go home. No new seizures overnight. Did not get MRI yesterday. Scheduled for today. Hospitalist Physical - Constitutional Vitals: Temp Pulse Resp BP Pulse Ox 97.4 F L 112 H 18 130/72 97 09/10/18 18:24 09/10/18 20:18 09/10/18 20:18 09/10/18 18:24 09/10/18 20:18 General appearance: Present: no acute distress, well-nourished - EENT Eyes: Present: PERRL, EOM intact ENT: hearing intact, clear oral mucosa, dentition normal, no oropharyngeal erythema, no poor dentition, no thrush - Neck Neck: Present: supple, normal ROM. Absent: enlarged thyroid - Respiratory Respiratory effort: normal Respiratory: bilateral: CTA - Cardiovascular Rhythm: irregularly irregular - Extremities Extremities: no ischemia, pulses intact, pulses symmetrical, No edema, normal temperature, normal color Peripheral Pulses: within normal limits - Abdominal General gastrointestinal: soft, non-tender, non-distended, normal bowel sounds - Integumentary Integumentary: Present: clear, warm, dry - Neurologic Neurologic: CNII-XII intact, moves all extremities Results - Labs CBC & Chem 7: 09/09/18 04:25 09/09/18 04:25 Labs: Laboratory Last Values WBC 18.8 K/mm3 (4.5-11.0) H 09/09/18 04:25 RBC 4.43 M/mm3 (3.65-5.03) 09/09/18 04:25 Hgb 13.1 gm/dl (10.1-14.3) 09/09/18 04:25 Hct 39.0 % (30.3-42.9) 09/09/18 04:25 MCV 88 fl (79-97) 09/09/18 04:25 MCH 30 pg (28-32) 09/09/18 04:25 MCHC 34 % (30-34) 09/09/18 04:25 RDW 14.6 % (13.2-15.2) 09/09/18 04:25 Plt Count 439 K/mm3 (140-440) 09/09/18 04:25 Lymph % (Auto) 8.7 % (13.4-35.0) L 09/09/18 04:25 [place] % (Auto) 9.7 % (0.0-7.3) H 09/09/18 04:25 Eos % (Auto) 0.0 % (0.0-4.3) 09/09/18 04:25 Baso % (Auto) 0.2 % (0.0-1.8) 09/09/18 04:25 Lymph # 1.6 K/mm3 (1.2-5.4) 09/09/18 04:25 [place] # 1.8 K/mm3 (0.0-0.8) H 09/09/18 04:25 Eos # 0.0 K/mm3 (0.0-0.4) 09/09/18 04:25 Baso # 0.0 K/mm3 (0.0-0.1) 09/09/18 04:25 Seg Neutrophils % 81.4 % (40.0-70.0) H 09/09/18 04:25 Seg Neutrophils # 15.3 K/mm3 (1.8-7.7) H 09/09/18 04:25 POC ABG pH 7.427 (7.35-7.45) 09/09/18 04:36 POC ABG pCO2 34.6 (35-45) L 09/09/18 04:36 POC ABG pO2 140 (80-105) H 09/09/18 04:36 POC ABG HCO3 22.8 (22-26 mml/L) 09/09/18 04:36 POC ABG Total CO2 24 (23-27mmol/L) 09/09/18 04:36 POC ABG O2 Sat 99 09/09/18 04:36 POC ABG Base Excess -2 ((-2) - (+3)mmol/L) 09/09/18 04:36 FiO2 30 % 09/09/18 04:36 Sodium 138 mmol/L (137-145) 09/09/18 04:25 Potassium 3.3 mmol/L (3.6-5.0) L 09/09/18 04:25 Chloride 104.3 mmol/L (98-107) 09/09/18 04:25 Carbon Dioxide 20 mmol/L (22-30) L 09/09/18 04:25 Anion Gap 17 mmol/L 09/09/18 04:25 BUN 9 mg/dL (7-17) 09/09/18 04:25 Creatinine 0.9 mg/dL (0.7-1.2) 09/09/18 04:25 Estimated GFR > 60 ml/min 09/09/18 04:25 BUN/Creatinine Ratio 10 % 09/09/18 04:25 Glucose 125 mg/dL (65-100) H 09/09/18 04:25 POC Glucose 88 (70-105) 09/09/18 21:11 Hemoglobin A1c 5.2 % (4-6) 09/07/18 23:25 Calcium 9.1 mg/dL (8.4-10.2) 09/09/18 04:25 Magnesium 1.70 mg/dL (1.7-2.3) 09/07/18 Unknown Total Bilirubin 0.50 mg/dL (0.1-1.2) 09/09/18 04:25 AST 28 units/L (5-40) 09/09/18 04:25 ALT 11 units/L (7-56) 09/09/18 04:25 Alkaline Phosphatase 62 units/L (35-129) 09/09/18 04:25 Total Protein 7.2 g/dL (6.3-8.2) 09/09/18 04:25 Albumin 3.7 g/dL (3.9-5) L 09/09/18 04:25 Albumin/Globulin Ratio 1.1 % 09/09/18 04:25 Active Medications - Current Medications Current Medications: Generic Name Dose Route Start Last Admin Trade Name Freq PRN Reason Stop Dose Admin Acetaminophen 650 mg 09/07/18 23:08 Tylenol PO Q4H PRN Pain MILD(1-3)/Fever >100.5/BISWAS Amlodipine Besylate 10 mg 09/08/18 17:00 09/10/18 10:13 Norvasc PO 10 mg QDAY BREANN Administration Lipase/Protease/Amylase 1 each 09/07/18 23:[address] 10,500 Unit FEEDTUBE PRN PRN For Clogged Feeding Tube Clonidine HCl 0.1 mg 09/09/18 10:00 09/09/18 09:45 Catapres-Tts Patch TD 0.1 mg We BREANN Administration Enoxaparin Sodium 40 mg 09/08/18 22:00 09/09/18 21:47 Lovenox SUB-Q 40 mg QDAY@2200 BREANN Administration Famotidine 20 mg 09/09/18 10:00 09/10/18 10:14 Pepcid PO 20 mg BID BREANN Administration Hydralazine HCl 10 mg 09/08/18 16:12 09/08/18 23:17 Apresoline IV 10 mg Q3H PRN Administration HTN >160/100 Hydromorphone HCl 0.5 mg 09/07/18 23:08 Dilaudid IV Q3H PRN Pain , Severe (7-10) Hydrophilic Ointment 1 applic 09/07/18 11:03 Vaseline Lip Therapy TP Q2HR PRN Dry Lips Sodium Chloride 1,000 mls @ 75 mls/hr 09/07/18 23:45 09/10/18 10:35 Nacl 0.45% 1000 Ml IV 75 mls/hr DIRECT BREANN Administration Levetiracetam 1,500 mg/ 115 mls @ 400 mls/hr 09/09/18 22:00 09/10/18 10:32 Dextrose IV 400 mls/hr Q12HR BREANN Administration Cefepime HCl 2 gm in 100 mls @ 200 mls/hr 09/10/18 03:21 09/10/18 13:48 Maxipime/Ns 2 Gm/100 Ml IV 200 mls/hr Q8HR BREANN Administration Protocol Vancomycin HCl 750 mg/ Sodium 265 mls @ 166.667 mls/hr 09/10/18 16:00 09/10/18 18:09 Chloride IV 166.667 mls/hr Q12H BREANN Administration Losartan Potassium 100 mg 09/08/18 17:00 09/10/18 10:14 Cozaar PO 100 mg QDAY BREANN Administration Metoprolol Tartrate 12.5 mg 09/08/18 11:00 09/10/18 10:13 Lopressor PO 12.5 mg BID BREANN Administration Multi-Ingred Cream/Lotion/Oil/Oint 1 applic 09/07/18 11:03 Artificial Tears Ophth Oint OU Q4HR PRN Dry Eye(s) Ondansetron HCl 4 mg 09/07/18 23:08 Zofran IV Q8H PRN Nausea And Vomiting Simple Syrup 15 ml 09/07/18 23:14 Simple Syrup FEEDTUBE PRN PRN Hypoglycemia Simple Syrup 30 ml 09/07/18 23:14 Simple Syrup FEEDTUBE PRN PRN Hypoglycemia Sodium Bicarbonate 325 mg 09/07/18 23:14 Sodium Bicarbonate FEEDTUBE PRN PRN For Clogged Feeding Tube Sodium Chloride 10 ml 09/07/18 23:45 09/10/18 10:14 Sodium Chloride Flush Syringe 10 Ml IV 10 ml BID BREANN Administration Sodium Chloride 10 ml 09/07/18 23:08 Sodium Chloride Flush Syringe 10 Ml IV PRN PRN LINE FLUSH Nutrition/Malnutrition Assess - Dietary Evaluation Nutrition/Malnutrition Findings: Nutrition Notes Start: 09/07/18 14:43 Freq: Status: Active Protocol: Document 09/10/18 09:25 CP (Rec: 09/10/18 09:27 CP [id number]) Co-Sign 09/10/18 09:25 LP Nutrition Notes Initial or Follow up Brief Note Current Diagnosis Diabetes,Hypertension, Respiratory Failure Other Pertinent Diagnosis Status epilepticus Current Diet No diet ordered Subjective/Other Information F/U for TF tolerance. TF was not hanging during time of visit. Nutrition Intervention Follow-Up By: 09/11/18 Additional Comments F/U: Diet advancement
[2018-09-10] MEDS: LOVENOX SUB-Q SCH (21:50)
[2018-09-11] MEDS: KEPPRA 1,500 MG in D5W 100 ML IV SCH ×2 (01:08→10:14)
[2018-09-11] MEDS: VANCOMYCIN 750 MG in NACL 0.9% 250ML 250 ML IV SCH (05:11)
[2018-09-11 06:30] LABS: Basophils % (Auto) 0.3 % (0.0-1.8); Eosinophils # (Auto) 0.4 K/mm3 (0.0-0.4); Hemoglobin 10.9 gm/dl (10.1-14.3); Lymphocytes # (Auto) 1.8 K/mm3 (1.2-5.4); Lymphocytes % (Auto) 23.6 % (13.4-35.0); Mean Corpuscular HGB Conc 33 % (30-34); Mean Corpuscular Volume 88 fl (79-97); Monocytes # (Auto) 0.9 K/mm3 (0.0-0.8); Platelet Count 417 K/mm3 (140-440); Red Blood Count 3.73 M/mm3 (3.65-5.03); Red Cell Distribution Width 13.9 % (13.2-15.2)
[2018-09-11 06:31] LABS: Hematocrit 33.9 % (30.3-42.9)
[2018-09-11] MEDS: MAXIPIME/NS 2 GM/100 ML 2 GM/100 ML BAG IV SCH ×2 (08:04→15:50)
--- NOTE | 2018-09-11 08:49 | XRay Report ---
PORTABLE CHEST INDICATION: Followup respiratory failure. COMPARISON: Yesterday. FINDINGS: Portable, frontal chest radiograph, 7:36 AM, 09/11/2018 demonstrated stable cardiomediastinal silhouette and fairly clear lungs. Slight left basilar atelectasis/opacity about the lateral costophrenic angle appears improved/resolving. Right hemidiaphragm again approximately 2.2 cm higher than the left. Slight aortic knob calcifications. Demineralized bones. CONCLUSION: No acute significant chest process or interval worsening with few incidental findings, as described. Thank you for the opportunity to participate in this patient's care.
[2018-09-11] MEDS: LOPRESSOR PO SCH (09:56)
[2018-09-11] MEDS: NORVASC PO SCH (09:56)
[2018-09-11] MEDS: PEPCID PO SCH (09:56)
[2018-09-11] MEDS: COZAAR PO SCH (09:56)
[2018-09-11] MEDS: SODIUM CHLORIDE FLUSH SYRINGE 10 ML IV SCH (09:57)
[2018-09-11 11:52] VITALS: BP 134/72
--- NOTE | 2018-09-11 12:13 | Progress Note ---
Assessment and Plan Acute hypoxemic respiratory failure Status epilepticus h/o HTN Leukocytosis, probably reactive Hypokalemia - continue to wean supplemental oxygen to keep O2 sats 88-90% - follow clinically off AB's - continue Anti-seizure medications - continue GI & VTE prophylaxis - aspiration precautions - Accuchecks q6h with glycemic control per SSI for target glucose of 140-180 mg/dL - continue bronchodilators with pulmonary hygiene per RT - continue maintenance of sleep -wake cycle - Influenza and pneumonia vaccination per protocol -Replace potassium, keep K at 4.0 CODE STATUS: FULL CODE Subjective Date of service: 09/11/18 Principal diagnosis: Acute hypoxemic respiraotry failure; Status epilepticus; leukocytosis Interval history: Patient is seen today for: Acute hypoxemic respiraotry failure; status epil epticus; leukocytosis Seen and examined at bedside; Objective Vital Signs - 12hr 09/11/18 09/11/18 05:42 11:21 Temperature 98.6 F 97.4 F L Pulse Rate 68 67 Respiratory 20 20 Rate Blood Pressure 149/79 134/72 O2 Sat by Pulse 97 96 Oximetry Constitutional: no acute distress, other (atraumatic, normocephailc, ) Eyes: non-icteric ENT: oropharynx moist, other (ETT at 22cm, SBFT in nares) Neck: supple, no lymphadenopathy Effort: normal Ascultation: Bilateral: clear Cardiovascular: other (tachycardia, S1,S2, no murmurs, gallops or rubs) Gastrointestinal: normoactive bowel sounds, soft, non-distended Integumentary: normal Extremities: no cyanosis, no edema, pink and warm, pulses normal Neurologic: pupils equal and round, other (drifts off to sleep, but obeys commands) Psychiatric: other (unable to accuraely assess) CBC and BMP: 09/11/18 06:07 09/09/18 04:25 ABG, PT/INR, D-dimer: ABG POC ABG pH 7.427 (7.35-7.45) 09/09/18 04:36 POC ABG pCO2 34.6 (35-45) L 09/09/18 04:36 POC ABG pO2 140 (80-105) H 09/09/18 04:36 POC ABG HCO3 22.8 (22-26 mml/L) 09/09/18 04:36 POC ABG Total CO2 24 (23-27mmol/L) 09/09/18 04:36 POC ABG O2 Sat 99 09/09/18 04:36 Abnormal lab findings: Abnormal Labs 09/07/18 09/07/18 09/08/18 08:56 12:02 00:15 WBC Lymph % (Auto) [place] % (Auto) Eos % (Auto) [place] # Seg Neutrophils % Seg Neutrophils # POC ABG pH 7.451 H POC ABG pCO2 POC ABG pO2 Potassium 3.3 L Carbon Dioxide Glucose 107 H POC Glucose 126 H Albumin 09/08/18 09/08/18 09/08/18 04:13 04:24 23:57 WBC 16.2 H Lymph % (Auto) [place] % (Auto) 9.9 H Eos % (Auto) [place] # 1.6 H Seg Neutrophils % 73.7 H Seg Neutrophils # 11.9 H POC ABG pH 7.472 H POC ABG pCO2 30.7 L POC ABG pO2 232 H Potassium Carbon Dioxide Glucose POC Glucose 110 H Albumin 09/09/18 09/09/18 09/09/18 04:25 04:25 04:36 WBC 18.8 H Lymph % (Auto) 8.7 L [place] % (Auto) 9.7 H Eos % (Auto) [place] # 1.8 H Seg Neutrophils % 81.4 H Seg Neutrophils # 15.3 H POC ABG pH POC ABG pCO2 34.6 L POC ABG pO2 140 H Potassium 3.3 L Carbon Dioxide 20 L Glucose 125 H POC Glucose Albumin 3.7 L 09/09/18 09/11/18 11:45 06:07 WBC Lymph % (Auto) [place] % (Auto) 11.0 H Eos % (Auto) 5.0 H [place] # 0.9 H Seg Neutrophils % Seg Neutrophils # POC ABG pH POC ABG pCO2 POC ABG pO2 Potassium Carbon Dioxide Glucose POC Glucose 126 H Albumin Allied health notes reviewed: RT
--- NOTE | 2018-09-11 12:44 | Discharge Summary ---
Providers - Providers Date of Admission: 09/07/18 13:07 Date of discharge: 09/11/18 Attending physician: KARYN LOPEZ 09/07/18 23:08 Consult to Physician [CONS] Routine Comment: Consulting Provider: TAVARES HAM Physician Instructions: Reason For Exam: Status Epilepticus 09/07/18 23:12 Consult to Physician [CONS] Routine Comment: Consulting Provider: HANNA KATZ Physician Instructions: Reason For Exam: Status epilepticus 09/07/18 23:13 Consult to Dietitian/Nutrition [CONS] Routine Physician Instructions: Reason For Exam: Reason for Consult: Write/Manage Tube Feeding 09/07/18 23:14 Consult to Dietitian/Nutrition [CONS] Routine Physician Instructions: Assess nutrtn needs, initiate, modify, manage TF Reason For Exam: Reason for Consult: Write/Manage Tube Feeding Reason for Consult: Write/Manage Tube Feeding [facility] Condition: Fair Pertinent studies: MRI are unremarkable. Patient did not stay for [place]. Did not want to do anymore imaging. Hospital course: 50-year-old with a history of seizure disorder presented with status epilepticus. Patient was admitted intubated Her options maximum was to control seizures. Patient was extubated and episodes of seizure. Patient was watched and observed for 48 hours extubated D Hume no wheezing talking and normal symptoms is clear by pulmonology for discharge as well. Disposition: TO HOME OR SELFCARE - Discharge Diagnoses (1) Status epilepticus Status: Resolved (2) HLD (hyperlipidemia) Status: Chronic Qualifiers: Hyperlipidemia type: familial hypercholesterolemia Qualified Code(s): E78.01 - Familial hypercholesterolemia Comment: Statin (3) HTN (hypertension) Status: Chronic Qualifiers: Hypertension type: essential hypertension Qualified Code(s): I10 - Essential (primary) hypertension (4) Acute respiratory failure Status: Acute Qualifiers: Respiratory failure complication: unspecified whether with hypoxia or hypercapnia Qualified Code(s): J96.00 - Acute respiratory failure, unspecified whether with hypoxia or hypercapnia Core Measure Documentation - Palliative Care Palliative Care/ Comfort Measures: Not Applicable - Core Measures Any of the following diagnoses?: none Exam - Constitutional Vitals: Temp Pulse Resp BP Pulse Ox 97.4 F L 67 20 134/72 96 09/11/18 11:21 09/11/18 11:21 09/11/18 11:21 09/11/18 11:21 09/11/18 11:21 General appearance: Present: no acute distress, well-nourished - EENT Eyes: Present: PERRL ENT: hearing intact, clear oral mucosa - Neck Neck: Present: supple, normal ROM - Respiratory Respiratory effort: normal Respiratory: bilateral: CTA - Cardiovascular Heart Sounds: Present: S1 & S2. Absent: rub, click - Extremities Extremities: pulses symmetrical, No edema Peripheral Pulses: within normal limits - Abdominal General gastrointestinal: Present: soft, non-tender, non-distended, normal bowel sounds Female genitourinary: Present: normal - Integumentary Integumentary: Present: clear, warm, dry - Musculoskeletal Musculoskeletal: gait normal, strength equal bilaterally - Psychiatric Psychiatric: appropriate mood/affect, intact judgment & insight - Neurologic Neurologic: CNII-XII intact, moves all extremities Plan Activity: no restrictions, fall precautions Weight Bearing Status: Full Weight Bearing Diet: low cholesterol [facility] - 3-5 Days Prescriptions: Divalproex ER [Depakote ER] 500 mg PO BID #60 tablet traZODone [Desyrel] 50 mg PO QHS PRN #30 tablet PRN Reason: Sleep levETIRAcetam [Keppra TAB] 1,500 mg PO BID #60 tablet AtorvaSTATin [Lipitor] 40 mg PO QHS #30 tablet Metoprolol [Lopressor TAB] 50 mg PO BIDWM #60 tablet Lisinopril [Zestril TAB] 20 mg PO QDAY #30 tablet
== END 2018-09-11 16:02 | disposition home or self-care (01) | DRG 208 ==
LOC: ED 08:04 → CC1 13:07 → 3A 09-09 19:51
PROVIDERS: ADMIT Internal Medicine; ATTEND Internal Medicine
PROC: 5A1945Z Respiratory Ventilation, 24-96 Consecutive Hours (ICD-10-PCS; principal; 2018-09-07)
PROC: 0BH17EZ Insertion of Endotracheal Airway into Trachea, Via Natural or Artificial Opening (ICD-10-PCS; 2018-09-07)
PROC: 4A033R1 Measurement of Arterial Saturation, Peripheral, Percutaneous Approach (ICD-10-PCS; 2018-09-07)
DX: J96.01 Acute respiratory failure with hypoxia (principal); G40.411 Other generalized epilepsy and epileptic syndromes, intractable, with status epilepticus; I10 Essential (primary) hypertension; E78.5 Hyperlipidemia, unspecified; E87.6 Hypokalemia; E11.9 Type 2 diabetes mellitus without complications; E78.2 Mixed hyperlipidemia; Z79.84 Long term (current) use of oral hypoglycemic drugs; Z79.899 Other long term (current) drug therapy
CPT/HCPCS: 36415; 36600; 70450; 70551; 71045; 74018; 80048; 80053; 82803; 82962; 83036; 83735; 85025; 85027; 87040; 87070; 87205; 93005; 93010; 94002; 94003; 94760; 95819; 96365; 96372; 96375; 96376; G0378; J0330; J0360; J0692; J1650; J1953; J1956; J2001; J2060; J3370; J3480; J7030; J7050